=== PATIENT | male | born 1930 | race Caucasian/White ===

== ENCOUNTER 2017-09-14 18:35 | Emergency (ER) | payer MEDICARE, MEDICAID ==
--- NOTE | 2017-09-14 19:44 | C.PDOC ---
History Of Present Illness 87 year old male presents to the emergency department with complaints of fever, cough, congestion, and right ear discomfort. Patient was unable to provide a history, and the history was obtained from his daughter and granddaughter. His daughter reports that the patient has a tendency to vomit when he eats, which ghas been happening over the last few days Time Seen by Provider: 09/14/17 19:43 Chief Complaint (Nursing): Flu-like Symptoms History Per: Family (daughter, granddaughter) History/Exam Limitations: physical impairment Onset/Duration Of Symptoms: Days (1-2) Current Symptoms Are (Timing): Still Present Severity: Moderate Pain Scale Rating Of: 4 Reports Recently: Treated By A Physician Recent travel outside of the [place]: No Additional History Per: Family Past Medical History Reviewed: Historical Data, Nursing Documentation, Vital Signs Vital Signs: Last Vital Signs Temp 99.1 F 09/14/17 18:51 Pulse 73 09/14/17 22:06 Resp 14 09/14/17 22:06 BP 129/62 09/14/17 22:06 Pulse Ox 99 09/14/17 22:06 - Medical History PMH: CAD, CHF, Dementia, Depression, Diabetes (Type II), HTN, Hypercholesterolemia Denies: HIV, Chronic Kidney Disease Surgical History: Pacemaker - [facility] Procedures INJECT/INFUSE NEC (05/07/14) INTRODUCTION OF SERUM/TOX/VACCINE INTO MUSCLE, PERC APPROACH (04/13/15) Family History: States: No Known Family Hx - Social History Hx Alcohol Use: No Hx Substance Use: No - Immunization History Hx Tetanus Toxoid Vaccination: No Hx Influenza Vaccination: No Hx Pneumococcal Vaccination: No Review Of Systems Constitutional: Positive for: Fever ENT: Positive for: Ear Pain, Nose Congestion Cardiovascular: Negative for: Chest Pain Respiratory: Positive for: Cough. Negative for: Shortness of Breath Gastrointestinal: Positive for: Vomiting (upon eating). Negative for: Abdominal Pain Musculoskeletal: Negative for: Back Pain Skin: Positive for: Rash Neurological: Negative for: Weakness Psych: Negative for: Anxiety Physical Exam - Physical Exam Appears: Non-toxic, No Acute Distress, In Acute Distress (09/16) Skin: Warm, Dry, Other (facial erythema) Head: Normacephalic Eye(s): bilateral: Normal Inspection Ear(s): Left: Normal, Right: TM Obscured By Wax (middle ear canal), Other ( Right ear pinna erythematous) Oral Mucosa: Moist Throat: Normal, No Erythema, No Exudate Neck: Trachea Midline, Supple Chest: Symmetrical, Other (pacemaker in place on left chest) Cardiovascular: Rhythm Regular Respiratory: No Rales, Rhonchi (scattered), No Wheezing Gastrointestinal/Abdominal: Soft, Tenderness, No Distention, No Guarding, No Rebound Back: Normal Inspection Extremity: No Tenderness, Other (Chronic skin changes to bilateral lower extremities) Extremity: Bilateral: Atraumatic Pulses: Left Dorsalis Pedis: Normal, Right Dorsalis Pedis: Normal Neurological/Psych: Other (AAOx2) Gait: Unable To Assess ED Course And Treatment - Laboratory Results Result Diagrams: 09/14/17 20:33 09/14/17 20:33 ECG: Interpreted By Me, Viewed By Me ECG Rhythm: Sinus Rhythm (73), Nonspecific Changes (ventricular paced) O2 Sat by Pulse Oximetry: 96 (RA) Pulse Ox Interpretation: Normal - Radiology CXR: Interpreted by Me, Viewed By Me CXR Interpretation: Yes: Other (pacer on right). No: Infiltrates, Fracture, Pnemothorax Progress Note: Plan: Venous BG. EKG. CMP. Thromboplastin Time. Prothrombin Time. CXR One View. Blood Culture. Urinalysis Reevaluation Time: 23:18 Reassessment Condition: Improved Disposition Counseled Patient/Family Regarding: Studies Performed, Diagnosis, Need For Followup, Rx Given - Disposition Referrals: Sonido Velazquez I [Medical Doctor] - Disposition: HOME/ ROUTINE Disposition Time: 19:43 Condition: FAIR Additional Instructions: Please return if symptoms recur Prescriptions: levoFLOXacin [Levaquin] 500 mg PO DAILY #7 tab Instructions: Acute Bronchitis Forms: [facility] (Frisian) - Clinical Impression Clinical Impression: Bronchitis - Scribe Statement The provider has reviewed the documentation as recorded by the Scribe (Tony Bethea) Provider Attestation: All medical record entries made by the Scribe were at my direction and personally dictated by me. I have reviewed the chart and agree that the record accurately reflects my personal performance of the history, physical exam, medical decision making, and the department course for this patient. I have also personally directed, reviewed, and agree with the discharge instructions and disposition.
[2017-09-14 20:37] LABS: BASO % 0.3 % (0.0-2.0); EOS # 0.4 K/uL (0.0-0.7); EOS % 6.6 % (0.0-4.0); HEMOGLOBIN 10.4 g/dL (12.0-18.0); LYMPH # 0.5 K/uL (1.0-4.3); LYMPH % 8.9 % (20.0-40.0); MEAN CELL VOLUME 93.2 fL (80.0-94.0); MEAN CORPUSCULAR HEMOGLOBIN 32.5 pg (27.0-31.0); MEAN CORPUSCULAR HGB CONC 34.8 g/dL (33.0-37.0); MEAN PLATELET VOLUME 7.1 fL (7.2-11.7); MONO # 0.5 K/uL (0.0-0.8); MONO % 9.2 % (0.0-10.0); NEUT # 4.5 K/uL (1.8-7.0); PLATELET COUNT 184 K/uL (130-400); RED CELL DISTRIBUTION WIDTH 14.4 % (11.5-14.5)
[2017-09-14 20:45] LABS: INR 1.1; PROTHROMBIN TIME 12.4 SECONDS (9.7-12.2)
[2017-09-14 20:47] LABS: VENOUS BLOOD GAS PCO2 49 mmHg (40-60); VENOUS BLOOD GAS PO2 24 mm/Hg (30-55); VENOUS BLOOD PH 7.38 (7.32-7.43)
[2017-09-14 20:55] LABS: ALB/GLOB RATIO 0.9 (1.0-2.1); ALBUMIN 3.1 g/dL (3.5-5.0); ALT/SGPT 27 U/L (21-72); AST/SGOT 43 U/L (17-59); BLOOD UREA NITROGEN 17 mg/dL (9-20); CALCIUM 8.5 mg/dl (8.6-10.4); GFR AFRICAN-AMERICAN > 60; GFR NON-AFRICAN AMERICAN > 60; LIPASE 80 U/L (23-300)
[2017-09-14 21:13] LABS: EOSINOPHIL 8 % (0-4); LYMPHOCYTE 6 % (20-40); MONOCYTE 8 % (0-10); NEUTROPHIL 78 % (50-75); PLATELET ESTIMATE NORMAL (NORMAL); TOTAL CELLS COUNTED 100
[2017-09-14 22:55] LABS: SQUAMOUS EPITHIAL 1 /hpf (0-5); URINE BACTERIA RARE (<OCC); URINE BILIRUBIN NEGATIVE (NEGATIVE); URINE BLOOD NEGATIVE (NEGATIVE); URINE CLARITY Turbid (Clear); URINE COLOR Yellow (YELLOW); URINE GLUCOSE (UA) NORMAL (Normal); URINE LEUKOCYTE ESTERASE NEG Leu/uL (Negative); URINE PROTEIN 2+ mg/dL (NEGATIVE)
[2017-09-14 23:46] VITALS: RESP 20; TEMP 98
[2017-09-15 02:10] VITALS: BP 121/70; PULSE 88; O2SAT 100
--- NOTE | 2017-09-15 08:19 | RAD ---
Chest x-ray single frontal view History: Shortness of breath. Comparison: None available. Findings: Left-sided pacemaker. Mild venous congestion. Right hilar prominence. Biapical pleural thickening. Right paratracheal prominence may represent prominent vasculature. Top normal heart size. Degenerative changes in the spine and shoulders. Few distended loops of small bowel in the upper to mid abdomen. Impression: Left-sided pacemaker. Mild venous congestion. Right hilar prominence. Biapical pleural thickening. Right paratracheal prominence may represent prominent vasculature. Top normal heart size. Degenerative changes in the spine and shoulders. Few distended loops of small bowel in the upper to mid abdomen.
--- NOTE | 2017-09-16 19:24 | CARD ---
APPROVED REPORT EKG Measurement Heart [id number] <Conclusion> Ventricular-paced rhythm Abnormal ECG
== END 2017-09-15 02:10 | disposition home or self-care (01) ==
LOC: C.ER 18:35
DX: J40 Bronchitis, not specified as acute or chronic (principal); I10 Essential (primary) hypertension; E78.00 Pure hypercholesterolemia, unspecified; E11.9 Type 2 diabetes mellitus without complications; Z87.891 Personal history of nicotine dependence

== ENCOUNTER 2017-09-23 19:48 | Emergency (ER) | payer MEDICARE, MEDICAID ==
[2017-09-23] MEDS ORDERED: Sodium Chloride 0.9% 500 ML IV ONE (20:33)
[2017-09-23] MEDS ORDERED: Albuterol 0.083% Inhal Sol (2.5 mg/3 mL) UD INH STA (20:36)
--- NOTE | 2017-09-23 20:42 | C.PDOC ---
History Of Present Illness 87 y/o male with PMHx Dementia, HTN and DM brought to ED by family with complaints of non improved cough, decreased appetite and total body pain for "few days". Patient was seen at ED on 09/14 and diagnosed with bronchitis, discharged with antibiotics. As per family member patient has 1dose of antibiotic left but symptoms have not improved and is concern for decreased appetite which prompted visit to ED. As per family patient denies fever, chills , vomiting, diarrhea or any other complaints at this time. Chief Complaint (Nursing): Cough, Cold, Congestion History Per: Family History/Exam Limitations: clinical condition Onset/Duration Of Symptoms: Days Current Symptoms Are (Timing): Still Present Past Medical History Reviewed: Historical Data, Nursing Documentation, Vital Signs Vital Signs: Last Vital Signs Temp 98.0 F 09/23/17 23:05 Pulse 78 09/23/17 23:05 Resp 14 09/23/17 23:05 BP 130/54 L 09/23/17 23:05 Pulse Ox 96 09/23/17 23:05 - Medical History PMH: CAD, CHF, Dementia, Depression, Diabetes (Type II), HTN, Hypercholesterolemia Surgical History: Pacemaker - [facility] Procedures INJECT/INFUSE NEC (05/07/14) INTRODUCTION OF SERUM/TOX/VACCINE INTO MUSCLE, PERC APPROACH (04/13/15) Family History: States: No Known Family Hx - Social History Hx Alcohol Use: No Hx Substance Use: No - Immunization History Hx Tetanus Toxoid Vaccination: No Hx Influenza Vaccination: No Hx Pneumococcal Vaccination: No Review Of Systems Constitutional: Negative for: Fever, Chills Respiratory: Positive for: Cough Gastrointestinal: Negative for: Nausea, Vomiting, Diarrhea Musculoskeletal: Positive for: Other (Body pain) Skin: Negative for: Rash Physical Exam - Physical Exam Appears: Non-toxic, No Acute Distress Skin: Warm, Dry, Rash (Dermatitis over face), Other (Numerous abrasions to lower extremities, Thin pretibial skin) Head: Atraumatic, Normacephalic Eye(s): bilateral: Other (Conjunctiva injection) Oral Mucosa: Dry Neck: Normal ROM, Supple Cardiovascular: Rhythm Regular Respiratory: Decreased Breath Sounds (bilateral), Rhonchi (Right base) Extremity: No Pedal Edema, Capillary Refill (<2 seconds) Neurological/Psych: Oriented x3 ED Course And Treatment - Laboratory Results Result Diagrams: 09/23/17 21:17 09/23/17 21:17 O2 Sat by Pulse Oximetry: 95 (RA) Pulse Ox Interpretation: Normal - Radiology CXR: Interpreted by Me, Viewed By Me CXR Interpretation: Yes: No Acute Disease. No: Infiltrates Medical Decision Making Medical Decision Making: Impression: Bronchitis vs Pneumonia vs Sepsis Initial Plan: * Routine labs * EKG * Chest x-ray * Albuterol neb x1 * IV fluids * O2 2L via nasal cannula * Peak Flow pre/post nebulizer * Reassessment after meds given Labs reviewed, and are grossly normal. Disposition - Disposition Referrals: [facility] [Outside] Disposition: HOME/ ROUTINE Disposition Time: 01:30 Condition: GOOD Instructions: Upper Respiratory Infection (ED) Forms: Gen Discharge Inst British, [facility] (Cook Islander) Print Language: SAMI - Clinical Impression Clinical Impression: Influenza-like illness - Scribe Statement The provider has reviewed the documentation as recorded by the Scribe Jose Ambrose All medical record entries made by the Scribe were at my direction and personally dictated by me. I have reviewed the chart and agree that the record accurately reflects my personal performance of the history, physical exam, medical decision making, and the department course for this patient. I have also personally directed, reviewed, and agree with the discharge instructions and disposition.
[2017-09-23] MEDS ORDERED: Albuterol 0.083% Inhal Sol (2.5 mg/3 mL) UD ONE (21:00)
[2017-09-23 21:35] LABS: BASO % 0.4 % (0.0-2.0); EOS # 0.4 K/uL (0.0-0.7); EOS % 5.8 % (0.0-4.0); HEMOGLOBIN 11.2 g/dL (12.0-18.0); LYMPH # 0.5 K/uL (1.0-4.3); MEAN CELL VOLUME 92.6 fL (80.0-94.0); MEAN CORPUSCULAR HEMOGLOBIN 32.1 pg (27.0-31.0); MEAN CORPUSCULAR HGB CONC 34.7 g/dL (33.0-37.0); MONO # 0.6 K/uL (0.0-0.8); MONO % 8.2 % (0.0-10.0); NEUT # 5.5 K/uL (1.8-7.0); NEUT % 78.6 % (50.0-75.0); PLATELET COUNT 216 K/uL (130-400); RBC 3.49 Mil/uL (4.40-5.90); RED CELL DISTRIBUTION WIDTH 13.9 % (11.5-14.5); WHITE BLOOD COUNT 6.9 K/uL (4.8-10.8)
[2017-09-23 21:43] LABS: ALB/GLOB RATIO 0.9 (1.0-2.1); ALBUMIN 3.2 g/dL (3.5-5.0); ALT/SGPT 34 U/L (21-72); AST/SGOT 53 U/L (17-59); BLOOD UREA NITROGEN 19 mg/dL (9-20); CALCIUM 8.7 mg/dl (8.6-10.4); GFR AFRICAN-AMERICAN > 60; GFR NON-AFRICAN AMERICAN > 60
[2017-09-23 21:48] LABS: B-TYPE NATRIURETIC PEPTIDE 846 pg/mL (0-900)
[2017-09-23 21:55] LABS: SQUAMOUS EPITHIAL < 1 /hpf (0-5); URINE BACTERIA RARE (<OCC); URINE BILIRUBIN NEGATIVE (NEGATIVE); URINE BLOOD 1+ (NEGATIVE); URINE CLARITY Clear (Clear); URINE COLOR Yellow (YELLOW); URINE GLUCOSE (UA) NORMAL (Normal); URINE HYALINE CAST 0-2 /lpf (0-2); URINE LEUKOCYTE ESTERASE NEG Leu/uL (Negative); URINE PROTEIN 2+ mg/dL (NEGATIVE); URINE UROBILINOGEN NORMAL mg/dL (0.2-1.0)
[2017-09-23 22:24] LABS: EOSINOPHIL 5 % (0-4); LYMPHOCYTE 3 % (20-40); MONOCYTE 9 % (0-10); NEUTROPHIL 83 % (50-75); TOTAL CELLS COUNTED 100
[2017-09-23 22:25] LABS: PLATELET ESTIMATE NORMAL (NORMAL)
[2017-09-23 22:26] LABS: ANISOCYTOSIS SLIGHT; HELMET CELLS SLIGHT; OVALOCYTES SLIGHT; POIKILOCYTOSIS SLIGHT
[2017-09-23 22:27] LABS: ACANTHOCYTES SLIGHT
[2017-09-23 23:06] VITALS: BP 130/54; PULSE 78; RESP 14; TEMP 98
[2017-09-24 01:31] VITALS: O2SAT 95
--- NOTE | 2017-09-24 08:25 | RAD ---
PROCEDURE: CHEST RADIOGRAPH, 1 VIEW HISTORY: Pneumonia COMPARISON: Chest radiograph dated 09/14/2017. FINDINGS: LUNGS: Clear. PLEURA: No pneumothorax or pleural fluid seen. CARDIOVASCULAR: Left subclavian access pacemaker redemonstrated. Atherosclerotic aortic calcifications. Cardiomediastinal silhouette within normal limits. OSSEOUS STRUCTURES: Unchanged. VISUALIZED UPPER ABDOMEN: Normal. OTHER FINDINGS: None. IMPRESSION: No active disease.
--- NOTE | 2017-09-25 12:03 | CARD ---
APPROVED REPORT EKG Measurement Heart [id number] <Conclusion> Ventricular-paced rhythm with occasional supraventricular complexes Abnormal ECG
== END 2017-09-23 23:08 | disposition home or self-care (01) ==
LOC: C.ER 19:48
DX: J11.1 Influenza due to unidentified influenza virus with other respiratory manifestations (principal); I10 Essential (primary) hypertension; E11.9 Type 2 diabetes mellitus without complications; F03.90 Unspecified dementia, unspecified severity, without behavioral disturbance, psychotic disturbance, mood disturbance, and anxiety; Z87.891 Personal history of nicotine dependence

== ENCOUNTER 2017-10-10 11:12 | Inpatient (IN) | payer MEDICARE, MEDICAID ==
[2017-10-10 11:21] VITALS: BMI 25.0
[2017-10-10 11:59] LABS: ABG ALLEN TEST PO; ARTERIAL BLOOD GAS HCO3 25.5 mmol/L (21-28); ARTERIAL BLOOD GAS O2 SAT 100.3 % (95-98); ARTERIAL BLOOD GAS PCO2 47 mm/Hg (35-45); ARTERIAL BLOOD GAS PH 7.36 (7.35-7.45); ARTERIAL BLOOD GAS PO2 168 mm/Hg (80-100)
[2017-10-10 12:08] LABS: BASO # 0.2 K/uL (0.0-0.2); BASO % 0.9 % (0.0-2.0); EOS # 0.2 K/uL (0.0-0.7); EOS % 1.1 % (0.0-4.0); LYMPH # 0.3 K/uL (1.0-4.3); MEAN CORPUSCULAR HEMOGLOBIN 32.1 pg (27.0-31.0); MEAN CORPUSCULAR HGB CONC 34.6 g/dL (33.0-37.0); MEAN PLATELET VOLUME 7.7 fL (7.2-11.7); MONO # 0.7 K/uL (0.0-0.8); MONO % 4.1 % (0.0-10.0); NEUT # 15.1 K/uL (1.8-7.0); NEUT % 91.9 % (50.0-75.0); PLATELET COUNT 167 K/uL (130-400); RBC 2.33 Mil/uL (4.40-5.90); RED CELL DISTRIBUTION WIDTH 14.9 % (11.5-14.5)
--- NOTE | 2017-10-10 12:10 | C.PDOC ---
History Of Present Illness 87 year old male is brought to ED from senior care via ALS after pt was found unresponsive and in respiratory arrest at the [facility]. Pt was intubated on field, ET tube at 7.5, lipline 24. As per EMS, patient is s/p G-Tube placement 3 days ago. Unable to obtain further history due to clinical condition. Time Seen by Provider: 10/10/17 11:18 Chief Complaint (Nursing): Shortness Of Breath History Per: EMS History/Exam Limitations: clinical condition Onset/Duration Of Symptoms: Sudden Onset Current Symptoms Are (Timing): Still Present Additional History Per: [facility] Past Medical History Reviewed: Historical Data, Nursing Documentation, Vital Signs Vital Signs: Last Vital Signs Temp 98.9 F 10/10/17 11:15 Pulse 77 10/10/17 12:39 Resp 16 10/10/17 12:39 BP 113/48 L 10/10/17 12:39 Pulse Ox 100 10/10/17 12:39 - Medical History PMH: CAD, CHF, Dementia, Depression, Diabetes (Type II), HTN, Hypercholesterolemia Denies: HIV, Chronic Kidney Disease Surgical History: Pacemaker - [facility] Procedures INJECT/INFUSE NEC (05/07/14) INSERTION OF FEEDING DEVICE INTO STOMACH, PERC APPROACH (09/28/17) INTRODUCTION OF SERUM/TOX/VACCINE INTO MUSCLE, PERC APPROACH (04/13/15) Family History: States: Unknown Family Hx - Social History Hx Alcohol Use: No Hx Substance Use: No - Immunization History Hx Tetanus Toxoid Vaccination: No Hx Influenza Vaccination: No Hx Pneumococcal Vaccination: No Review Of Systems Review Of Systems: ROS cannot be obtained secondary to pt's inabilty to answer questions. Physical Exam - Physical Exam Appears: Non-toxic Skin: Warm, Dry, Other Head: Atraumatic, Normacephalic Eye(s): bilateral: Normal Inspection Oral Mucosa: Moist, Other (ET tube in place ) Cardiovascular: Rhythm Regular Respiratory: Other (bilateral breath sounds with BVM effort) Gastrointestinal/Abdominal: Soft, No Tenderness, Other (G-Tube in place) Extremity: Pedal Edema (edematous lower and upper extremities), Other (chronic venous stasis to lower extremities) Neurological/Psych: Other (unresponsive) ED Course And Treatment - Laboratory Results Result Diagrams: 10/10/17 12:02 10/10/17 12:02 ECG: Interpreted By Me, Viewed By Me Interpretation Of ECG: Ventricular paced rhythm at 99bpm. O2 Sat by Pulse Oximetry: 100 (RA) Pulse Ox Interpretation: Normal Critical Care Time - Critical Care Note Total Time (in mins): 75 Documented critical care: time excludes all time spent performing seperately billable procedures. Medical Decision Making Medical Decision Making: Plan: Blood work Urinalysis CXR EKG Head CT Ativan Assessment: Respiratory arrest Stat ICU consultation at 11:40. Case discussed with Dr. Cooper who agrees upon admission to ICU. Dr. Ruslan Martínez was notified at 12:10. Disposition Discussed With : Shelbie Martínez - Disposition Disposition: HOSPITALIZED Disposition Time: 12:10 Condition: GUARDED - Clinical Impression Clinical Impression: Respiratory arrest - Scribe Statement The provider has reviewed the documentation as recorded by the Scribe Ratna Martínez All medical record entries made by the Scribe were at my direction and personally dictated by me. I have reviewed the chart and agree that the record accurately reflects my personal performance of the history, physical exam, medical decision making, and the department course for this patient. I have also personally directed, reviewed, and agree with the discharge instructions and disposition.
[2017-10-10 12:11] LABS: HEMOGLOBIN 7.5 g/dL (12.0-18.0); WHITE BLOOD COUNT 16.5 K/uL (4.8-10.8)
[2017-10-10 12:36] LABS: ALB/GLOB RATIO 0.8 (1.0-2.1); ALBUMIN 2.3 g/dL (3.5-5.0); ALT/SGPT 32 U/L (21-72); AST/SGOT 50 U/L (17-59); BLOOD UREA NITROGEN 21 mg/dL (9-20); CALCIUM 7.7 mg/dl (8.6-10.4); GFR AFRICAN-AMERICAN > 60; GFR NON-AFRICAN AMERICAN 57
[2017-10-10 12:40] LABS: INR 1.1; PROTHROMBIN TIME 12.6 SECONDS (9.7-12.2)
[2017-10-10] MEDS ORDERED: Cefepime 1 GM in Sodium Chloride 0.9% 50 ML IVPB ONE (12:40)
[2017-10-10 12:47] LABS: EOSINOPHIL 2 % (0-4); LYMPHOCYTE 1 % (20-40); MONOCYTE 4 % (0-10); NEUTROPHIL 93 % (50-75); PLATELET ESTIMATE NORMAL (NORMAL); TOTAL CELLS COUNTED 100
[2017-10-10 12:48] LABS: ANISOCYTOSIS SLIGHT; BURR CELLS SLIGHT; HYPOCHROMIC MODERATE; OVALOCYTES SLIGHT; POIKILOCYTOSIS SLIGHT; TARGET CELLS SLIGHT
--- NOTE | 2017-10-10 13:02 | RAD ---
HISTORY: unresponsive Unresponsive the COMPARISON: No prior. FINDINGS: In situ ETT, tip which lies approximately 3.7 cm above rayna. LUNGS: Bilateral lower lobe hazy opacities likely representing some combination of bilateral effusions right larger than the left as well as bibasilar atelectasis. Lower lobe infiltrates not excluded. The central pulmonary vasculature is also slightly increased more so on the right PLEURA: As above. No pneumothorax. CARDIOVASCULAR: Heart size within range of normal. No change bipolar pacemaker. OSSEOUS STRUCTURES: No significant abnormalities. VISUALIZED UPPER ABDOMEN: Normal. OTHER FINDINGS: None. IMPRESSION: In situ ETT as described. Bilateral lower lobe hazy opacities likely representing some combination of bilateral effusions right larger than the left as well as bibasilar atelectasis. Lower lobe infiltrates not excluded. The central pulmonary vasculature is also slightly increased more so on the right
--- NOTE | 2017-10-10 14:09 | CP.PCM.CON ---
<Tyree Leonardo - Last Filed: 10/10/17 14:03> History of Present Illness - History of Present Illness History of Present Illness: Critical Care Consult note for Dr. Peterson This is an 87 year old male with PMHx CAD, pacemaker, DM2, CHF, HLD, dementia who presented from the alf in respiratory arrest. Per review of EMR, patient recently hospitalized in [place] for sepsis from pneumonia and had PEG tube placed before being discharged to [facility]. This morning was found unresponsive and in respiratory arrest. Patient was intubated prior to arrival in the hospital. Per family at bedside, the alf told them that he was not responding this morning, and that the patient was being taken to the hospital. At baseline, the patient is able to communicate whenever he needs anything such as water. He was speaking with family up until yesterday. The family states that ever since 5 years ago, the patient experienced a fall and has not been able to move around since then. At baseline, he moves his upper extremities and torso to a small extent; however, he does not move his legs. PMHx: CAD, DM2, CHF, HLD, dementia PSHx: Pacemaker Allergies: NKA Social: from alf, former smoker per family. Review of Systems - Review of Systems Systems not reviewed;Unavailable: Acuity of Condition, Altered Mental Status, Intubated Past Patient History - Infectious Disease Hx of Infectious Diseases: None - Past Medical History & Family History Past Medical History?: Yes - Past Social History Smoking Status: Former Smoker - CARDIAC Hx Congestive Heart Failure: Yes Hx Hypercholesterolemia: Yes Hx Hypertension: Yes Hx Pacemaker: Yes - PULMONARY Hx Respiratory Disorders: No - NEUROLOGICAL Hx Dementia: Yes - HEENT Hx HEENT Problems: Yes - RENAL Hx Chronic Kidney Disease: No - ENDOCRINE/METABOLIC Hx Endocrine Disorders: Yes Hx Diabetes Mellitus Type 2: Yes - HEMATOLOGICAL/ONCOLOGICAL Hx Human Immunodeficiency Virus (HIV): No - INTEGUMENTARY Hx Dermatological Problems: No - MUSCULOSKELETAL/RHEUMATOLOGICAL Hx Musculoskeletal Disorders: Yes Hx Falls: Yes Other/Comment: non amb-W/C bound at home x 2yrs - GASTROINTESTINAL Hx Gastrointestinal Disorders: Yes Hx Constipation: Yes Other/Comment: PEG tube in place - GENITOURINARY/GYNECOLOGICAL Hx Genitourinary Disorders: No - PSYCHIATRIC Hx Depression: Yes Hx Substance Use: No - SURGICAL HISTORY Hx Surgeries: Yes Other/Comment: Pacemaker insertion - ANESTHESIA Hx Anesthesia: Yes Hx Anesthesia Reactions: No Hx Malignant Hyperthermia: No Meds Allergies/Adverse Reactions: Allergies Allergy/AdvReac Type Severity Reaction Status Date / Time No Known Allergies Allergy Verified 10/10/17 11:15 - Medications Medications: Current Medications Cefepime HCl (Maxipime Iv 1 Gm Premix) 1 gm in 50 mls @ 100 mls/hr IVPB Q12H JEFFERY PRN Reason: Protocol Insulin Aspart (Novolog) 0 unit SC Q6 JEFFERY PRN Reason: Protocol Pantoprazole Sodium (Protonix Inj) 40 mg IVP DAILY JEFFERY Physical Exam - Constitutional Appears: No Acute Distress, Chronically Ill - Head Exam Head Exam: ATRAUMATIC, NORMOCEPHALIC - Eye Exam Eye Exam: absent: Normal appearance (cataracts) Additional comments: pupils sluggishly reactive to light - ENT Exam ENT Exam: Mucous Membranes Dry - Respiratory Exam Respiratory Exam: Wheezes (right sided). absent: Rales, Rhonchi - Cardiovascular Exam Cardiovascular Exam: REGULAR RHYTHM, +S1, +S2 - GI/Abdominal Exam GI & Abdominal Exam: Normal Bowel Sounds, Soft. absent: Tenderness Additional comments: PEG tube with no obvious signs of infection - Extremities Exam Additional comments: Edema in the arms bilaterally Edema in the thighs bilaterally Unable to manually palpate pedal pulses chronic vascular insufficiency of the legs - Back Exam Additional comments: Sacral wound - Neurological Exam Neurological exam: Altered - Skin Skin Exam: Dry, Warm Results - Vital Signs Recent Vital Signs: Last Vital Signs Temp 98.9 F 10/10/17 11:15 Pulse 78 10/10/17 13:30 Resp 16 10/10/17 13:30 BP 110/46 L 10/10/17 13:30 Pulse Ox 100 10/10/17 13:30 - Labs Result Diagrams: 10/10/17 12:02 10/10/17 12:02 Labs: Laboratory Results - last 24 hr 10/10/17 10/10/17 10/10/17 11:35 11:55 12:02 WBC RBC Hgb Hct MCV MCH MCHC RDW Plt Count MPV Neut % (Auto) Lymph % (Auto) [place] % (Auto) Eos % (Auto) Baso % (Auto) Neut # (Auto) Lymph # (Auto) [place] # (Auto) Eos # (Auto) Baso # (Auto) Neutrophils % (Manual) Lymphocytes % (Manual) Monocytes % (Manual) Eosinophils % (Manual) Platelet Estimate Hypochromasia (manual) Poikilocytosis (manual Anisocytosis (manual) Target Cells Ovalocytes [place] Cells PT INR APTT Puncture Site Rra pCO2 47 H pO2 168 H HCO3 25.5 ABG pH 7.36 ABG Total CO2 28.0 ABG O2 Saturation 100.3 H ABG Base Excess 0.6 Lyle Test Po ABG Potassium 4.2 A-a O2 Difference 486.0 Respiratory Index 2.9 Sodium 140.0 144 Chloride 111.0 H 107 Glucose 197 H Lactate 0.9 Vent Mode Prvc FiO2 100.0 Tidal Volume 500 PEEP 5 Potassium 4.6 Carbon Dioxide 25 Anion Gap 16 BUN 21 H Creatinine 1.2 Est GFR ( Amer) > 60 Est GFR (Non-Af Amer) 57 POC Glucose (mg/dL) 221 H Random Glucose 187 H Lactic Acid Calcium 7.7 L Magnesium 1.9 Total Bilirubin 0.4 AST 50 ALT 32 Alkaline Phosphatase 96 Troponin I 0.0790 Total Protein 5.1 L Albumin 2.3 L D Globulin 2.8 Albumin/Globulin Ratio 0.8 L TSH 3rd Generation 4.05 Arterial Blood Potassium 4.2 10/10/17 10/10/17 10/10/17 12:02 12:02 12:02 WBC 16.5 H D RBC 2.33 L Hgb 7.5 L D Hct 21.7 L MCV 93.0 MCH 32.1 H MCHC 34.6 RDW 14.9 H Plt Count 167 MPV 7.7 Neut % (Auto) 91.9 H Lymph % (Auto) 2.0 L [place] % (Auto) 4.1 Eos % (Auto) 1.1 Baso % (Auto) 0.9 Neut # (Auto) 15.1 H Lymph # (Auto) 0.3 L [place] # (Auto) 0.7 Eos # (Auto) 0.2 Baso # (Auto) 0.2 Neutrophils % (Manual) 93 H Lymphocytes % (Manual) 1 L Monocytes % (Manual) 4 Eosinophils % (Manual) 2 Platelet Estimate Normal Hypochromasia (manual) Moderate Poikilocytosis (manual Slight Anisocytosis (manual) Slight Target Cells Slight Ovalocytes Slight [place] Cells Slight PT 12.6 H INR 1.1 APTT 18 L Puncture Site pCO2 pO2 HCO3 ABG pH ABG Total CO2 ABG O2 Saturation ABG Base Excess Lyle Test ABG Potassium A-a O2 Difference Respiratory Index Sodium Chloride Glucose Lactate Vent Mode FiO2 Tidal Volume PEEP Potassium Carbon Dioxide Anion Gap BUN Creatinine Est GFR ( Amer) Est GFR (Non-Af Amer) POC Glucose (mg/dL) Random Glucose Lactic Acid 1.1 Calcium Magnesium Total Bilirubin AST ALT Alkaline Phosphatase Troponin I Total Protein Albumin Globulin Albumin/Globulin Ratio TSH 3rd Generation Arterial Blood Potassium Assessment & Plan - Assessment and Plan (Free Text) Assessment: This is an 87 year old male with PMHx CAD, DM2, CHF, HLD, dementia who presented from the alf in respiratory arrest. Patient recently hospitalized with sepsis pneumonia at [place]. Patient now in respiratory arrest requiring intubation in the field. Neuro Assessment: End stage dementia Intubated but not sedated on medications Currently unresponsive to stimulus Cardio Assessment: CAD, s/p pacemaker Monitor for now Pulm Assessment: Respiratory Failure Vented GI Tube feeds Protonix 40 mg IV daily Endocrine Assessment: DM2 Aspart ISS Q6H Accuchecks Q6H Renal No active issues ID Assessment: Recent hospitalization with sepsis PNA Cefepime 1 gm Q12 Vancomycin 1 gm Q12 f/u cultures Prophylaxis Lovenox 40 mg SC daily Protonix 40 mg IV daily Discussed with Dr. Peterson <Jesus Peterson - Last Filed: 10/10/17 15:58> Meds - Medications Medications: Current Medications Cefepime HCl (Maxipime Iv 1 Gm Premix) 1 gm in 50 mls @ 100 mls/hr IVPB Q12H JEFFERY PRN Reason: Protocol Azithromycin 500 mg/ Sodium (Chloride) 250 mls @ 250 mls/hr IVPB DAILY@1600 JEFFERY PRN Reason: Protocol Vancomycin/Sodium Chloride (Vancomycin 1 Gm/Ns 200 Ml) 1 gm in 200 mls @ 133 mls/hr IVPB Q12H JEFFERY PRN Reason: Protocol Stop: 10/15/17 18:01 Insulin Aspart (Novolog) 0 unit SC Q6 JEFFERY PRN Reason: Protocol Pantoprazole Sodium (Protonix Inj) 40 mg IVP DAILY [facility] Pneumococcal Polyvalent Vaccine (Pneumovax 23 Vaccine) 0.5 ml IM .ONCE ONE Stop: 10/13/17 10:01 Results - Vital Signs Recent Vital Signs: Last Vital Signs Temp 98.9 F 10/10/17 11:15 Pulse 76 10/10/17 15:31 Resp 16 10/10/17 15:31 BP 110/46 L 10/10/17 13:30 Pulse Ox 100 10/10/17 15:31 - Labs Result Diagrams: 10/10/17 12:02 10/10/17 12:02 Labs: Laboratory Results - last 24 hr 10/10/17 10/10/17 10/10/17 11:35 11:55 12:02 WBC RBC Hgb Hct MCV MCH MCHC RDW Plt Count MPV Neut % (Auto) Lymph % (Auto) [place] % (Auto) Eos % (Auto) Baso % (Auto) Neut # (Auto) Lymph # (Auto) [place] # (Auto) Eos # (Auto) Baso # (Auto) Neutrophils % (Manual) Lymphocytes % (Manual) Monocytes % (Manual) Eosinophils % (Manual) Platelet Estimate Hypochromasia (manual) Poikilocytosis (manual Anisocytosis (manual) Target Cells Ovalocytes Evelyn Cells PT INR APTT Puncture Site Rra pCO2 47 H pO2 168 H HCO3 25.5 ABG pH 7.36 ABG Total CO2 28.0 ABG O2 Saturation 100.3 H ABG Base Excess 0.6 Lyle Test Po ABG Potassium 4.2 A-a O2 Difference 486.0 Respiratory Index 2.9 Sodium 140.0 144 Chloride 111.0 H 107 Glucose 197 H Lactate 0.9 Vent Mode Prvc FiO2 100.0 Tidal Volume 500 PEEP 5 Potassium 4.6 Carbon Dioxide 25 Anion Gap 16 BUN 21 H Creatinine 1.2 Est GFR ( Amer) > 60 Est GFR (Non-Af Amer) 57 POC Glucose (mg/dL) 221 H Random Glucose 187 H Lactic Acid Calcium 7.7 L Magnesium 1.9 Total Bilirubin 0.4 AST 50 ALT 32 Alkaline Phosphatase 96 Troponin I 0.0790 Total Protein 5.1 L Albumin 2.3 L D Globulin 2.8 Albumin/Globulin Ratio 0.8 L TSH 3rd Generation 4.05 Arterial Blood Potassium 4.2 10/10/17 10/10/17 10/10/17 12:02 12:02 12:02 WBC 16.5 H D RBC 2.33 L Hgb 7.5 L D Hct 21.7 L MCV 93.0 MCH 32.1 H MCHC 34.6 RDW 14.9 H Plt Count 167 MPV 7.7 Neut % (Auto) 91.9 H Lymph % (Auto) 2.0 L [place] % (Auto) 4.1 Eos % (Auto) 1.1 Baso % (Auto) 0.9 Neut # (Auto) 15.1 H Lymph # (Auto) 0.3 L [place] # (Auto) 0.7 Eos # (Auto) 0.2 Baso # (Auto) 0.2 Neutrophils % (Manual) 93 H Lymphocytes % (Manual) 1 L Monocytes % (Manual) 4 Eosinophils % (Manual) 2 Platelet Estimate Normal Hypochromasia (manual) Moderate Poikilocytosis (manual Slight Anisocytosis (manual) Slight Target Cells Slight Ovalocytes Slight Evelyn Cells Slight PT 12.6 H INR 1.1 APTT 18 L Puncture Site pCO2 pO2 HCO3 ABG pH ABG Total CO2 ABG O2 Saturation ABG Base Excess Lyle Test ABG Potassium A-a O2 Difference Respiratory Index Sodium Chloride Glucose Lactate Vent Mode FiO2 Tidal Volume PEEP Potassium Carbon Dioxide Anion Gap BUN Creatinine Est GFR ( Amer) Est GFR (Non-Af Amer) POC Glucose (mg/dL) Random Glucose Lactic Acid 1.1 Calcium Magnesium Total Bilirubin AST ALT Alkaline Phosphatase Troponin I Total Protein Albumin Globulin Albumin/Globulin Ratio TSH 3rd Generation Arterial Blood Potassium Attending/Attestation - Attestation I have personally seen and examined this patient.: Yes I have fully participated in the care of the patient.: Yes I have reviewed all pertinent clinical information: Yes Notes (Text): 10/10/17 15:50 I have seen and examined the patient. Medical records, lab studies, and imaging were reviewed by me and a management plan was formulated on multidisciplinary rounds with resident Dr. Leonardo. I agree with their documented assessment and plan. Patient was found unresponsive at alf. Possible ischemic stroke, questionable hemorrhagic also seen on CT head. patient is comatose and on mechanical ventilation, with history of prior stroke 6 years ago, underlying dementia and bed bound; he has a high mortality risk with a grave prognosis. Evidence of hydrocephalus on CT head, poor candidate for ROUSTAB[employer] P[employer]HER shunt if needed. Will monitor for improvement. Critical Care Time 35 minutes. Multi-disciplinary rounds were performed with house staff, nursing, speech therapy, respiratory therapy, pharmacy and nutrition with integrated input from the primary team/attending and other consulting services. The documented time is cumulative and includes review of patient data/exams/labs/chart review and examination of the patient on rounds and throughout the day; time is exclusive of any procedures or teaching time.
[2017-10-10] MEDS ORDERED: Vancomycin 1 gm/NS 200 ml 1 GM/200 ML BAG IVPB SCH (14:30)
--- NOTE | 2017-10-10 14:32 | CT ---
PROCEDURE: CT HEAD WITHOUT CONTRAST. HISTORY: dizziness COMPARISON: None available. TECHNIQUE: Axial computed tomography images were obtained through the head/brain without intravenous contrast. Radiation dose: Total exam DLP = 1070.45 mGy-cm. This CT exam was performed using one or more of the following dose reduction techniques: Automated exposure control, adjustment of the mA and/or kV according to patient size, and/or use of iterative reconstruction technique. FINDINGS: HEMORRHAGE: Questionable very small intraventricular hemorrhage in the occipital horn of the right lateral ventricle (series 4, image 23 and 24). Consider repeat CT examination within 24 hours. No parenchymal or extra-axial hemorrhage appreciated. BRAIN: No mass effect or edema. Moderate generalized atrophy. Mild periventricular white matter lucency, consistent with microvascular white matter ischemic change. No evidence of acute infarct. . VENTRICLES: [id number] dilatation of the 3rd and lateral ventricles. This is somewhat disproportionate to the degree of surrounding parenchymal atrophy. This could represent noncommunicating hydrocephalus. Correlate clinically for possible NPH. CALVARIUM: Unremarkable. PARANASAL SINUSES: Unremarkable as visualized. No significant inflammatory changes. MASTOID AIR CELLS: Unremarkable as visualized. No inflammatory changes. OTHER FINDINGS: None. IMPRESSION: Possible very small intraventricular hemorrhage in the occipital horn of right lateral ventricle. Follow-up CT examination device within 24 hours. Ventricular dilatation disproportionate to the degree of surrounding parenchymal atrophy. Consider noncommunicating hydrocephalus or NPH. The possibility of intraventricular hemorrhage was discussed by telephone with the patient's nurse, Estefania, at 2:30 p.m. on 10/10/2017.
[2017-10-10] MEDS: Azithromycin 500 MG in Sodium Chloride 0.9% 250 ML IVPB SCH (15:53)
[2017-10-10] MEDS: Vancomycin 1 gm/NS 200 ml 1 GM/200 ML BAG IVPB SCH (16:59)
[2017-10-10 18:00] LABS: SQUAMOUS EPITHIAL < 1 /hpf (0-5); URINE BACTERIA FEW (<OCC); URINE BILIRUBIN NEGATIVE (NEGATIVE); URINE BLOOD 3+ (NEGATIVE); URINE CLARITY Hazy (Clear); URINE COLOR YELLOW (YELLOW); URINE GLUCOSE (UA) NORMAL (Normal); URINE LEUKOCYTE ESTERASE TRACE Leu/uL (Negative); URINE PROTEIN 2+ mg/dL (NEGATIVE); URINE UROBILINOGEN NORMAL mg/dL (0.2-1.0)
[2017-10-10] MEDS: (Novolog) Insulin Aspart, Recombinant 100 u/ml 10 ml vial SC SCH (18:09)
--- NOTE | 2017-10-10 18:21 | CP.PCM.CON ---
History of Present Illness - History of Present Illness History of Present Illness: 87 year old male presented from the long-term in respiratory arrest.Patient recently hospitalized in [place] for sepsis from pneumonia and had PEG tube placed before being discharged to [facility]. This morning was found unresponsive and in respiratory arrest. Patient was intubated prior to arrival in the hospital. Has hx of multiple decubiti from home where he was weak, bedbound , confused and cachectic prior to admission in [place] where he was treated for pneumonia PMHx: CAD, DM2, CHF, HLD, dementia PSHx: Pacemaker Allergies: NKA Social: from long-term, former smoker per family. Review of Systems - Review of Systems Systems not reviewed;Unavailable: Acuity of Condition, Altered Mental Status, Intubated Review of Systems - Review of Systems All systems: reviewed and no additional remarkable complaints except Past Patient History - Infectious Disease Hx of Infectious Diseases: None - Past Medical History & Family History Past Medical History?: Yes - Past Social History Smoking Status: Former Smoker - CARDIAC Hx Congestive Heart Failure: Yes Hx Hypercholesterolemia: Yes Hx Hypertension: Yes Hx Pacemaker: Yes - PULMONARY Hx Respiratory Disorders: No - NEUROLOGICAL Hx Dementia: Yes - HEENT Hx HEENT Problems: Yes - RENAL Hx Chronic Kidney Disease: No - ENDOCRINE/METABOLIC Hx Endocrine Disorders: Yes Hx Diabetes Mellitus Type 2: Yes - HEMATOLOGICAL/ONCOLOGICAL Hx Human Immunodeficiency Virus (HIV): No - INTEGUMENTARY Hx Dermatological Problems: No - MUSCULOSKELETAL/RHEUMATOLOGICAL Hx Falls: Yes - GASTROINTESTINAL Hx Gastrointestinal Disorders: Yes Hx Constipation: Yes Other/Comment: PEG tube in place - GENITOURINARY/GYNECOLOGICAL Hx Genitourinary Disorders: No - PSYCHIATRIC Hx Substance Use: No - SURGICAL HISTORY Hx Surgeries: Yes Other/Comment: Pacemaker insertion - ANESTHESIA Hx Anesthesia: Yes Hx Anesthesia Reactions: No Hx Malignant Hyperthermia: No Meds Allergies/Adverse Reactions: Allergies Allergy/AdvReac Type Severity Reaction Status Date / Time No Known Allergies Allergy Verified 10/10/17 11:15 - Medications Medications: Current Medications Cefepime HCl (Maxipime Iv 1 Gm Premix) 1 gm in 50 mls @ 100 mls/hr IVPB Q12H JEFFERY PRN Reason: Protocol Azithromycin 500 mg/ Sodium (Chloride) 250 mls @ 250 mls/hr IVPB DAILY@1600 JEFFERY PRN Reason: Protocol Last Admin: 10/10/17 15:53 Dose: 250 mls/hr Vancomycin/Sodium Chloride (Vancomycin 1 Gm/Ns 200 Ml) 1 gm in 200 mls @ 133 mls/hr IVPB Q12H JEFFERY PRN Reason: Protocol Stop: 10/15/17 18:01 Last Admin: 10/10/17 16:59 Dose: 133 mls/hr Insulin Aspart (Novolog) 0 unit SC Q6 JEFFERY PRN Reason: Protocol Last Admin: 10/10/17 18:09 Dose: 3 unit Pantoprazole Sodium (Protonix Inj) 40 mg IVP DAILY [facility] Pneumococcal Polyvalent Vaccine (Pneumovax 23 Vaccine) 0.5 ml IM .ONCE ONE Stop: 10/13/17 10:01 Physical Exam - Constitutional Appears: Confused, Cachectic, Chronically Ill - Head Exam Head Exam: ATRAUMATIC, NORMAL INSPECTION, NORMOCEPHALIC - Eye Exam Eye Exam: PERRL. absent: Scleral icterus - ENT Exam ENT Exam: Mucous Membranes Dry. absent: Normal Oropharynx Additional comments: ETT + - Neck Exam Neck exam: Negative for: Lymphadenopathy, Thyromegaly - Respiratory Exam Respiratory Exam: Decreased Breath Sounds, Rales, Rhonchi - Cardiovascular Exam Cardiovascular Exam: REGULAR RHYTHM, +S1, +S2 - GI/Abdominal Exam GI & Abdominal Exam: Diminished Bowel Sounds, Soft. absent: Tenderness - Rectal Exam Rectal Exam: Deferred - Exam Exam: NORMAL INSPECTION - Extremities Exam Extremities exam: Positive for: pedal pulses present. Negative for: calf tenderness, pedal edema, tenderness - Back Exam Back exam: absent: CVA tenderness (L), CVA tenderness (R), paraspinal tenderness - Neurological Exam Neurological exam: Altered - Psychiatric Exam Psychiatric exam: Depressed - Skin Skin Exam: Dry Additional comments: multiple wounds + Results - Vital Signs Recent Vital Signs: Last Vital Signs Temp 98.6 F 10/10/17 16:00 Pulse 71 10/10/17 18:04 Resp 16 10/10/17 18:04 BP 102/48 L 10/10/17 18:05 Pulse Ox 100 10/10/17 18:04 - Labs Result Diagrams: 10/10/17 12:02 10/10/17 12:02 Labs: Laboratory Results - last 24 hr 10/10/17 10/10/17 10/10/17 11:35 11:55 12:02 WBC RBC Hgb Hct MCV MCH MCHC RDW Plt Count MPV Neut % (Auto) Lymph % (Auto) [place] % (Auto) Eos % (Auto) Baso % (Auto) Neut # (Auto) Lymph # (Auto) [place] # (Auto) Eos # (Auto) Baso # (Auto) Neutrophils % (Manual) Lymphocytes % (Manual) Monocytes % (Manual) Eosinophils % (Manual) Platelet Estimate Hypochromasia (manual) Poikilocytosis (manual Anisocytosis (manual) Target Cells Ovalocytes Evelyn Cells PT INR APTT Puncture Site Rra pCO2 47 H pO2 168 H HCO3 25.5 ABG pH 7.36 ABG Total CO2 28.0 ABG O2 Saturation 100.3 H ABG Base Excess 0.6 Lyle Test Po ABG Potassium 4.2 A-a O2 Difference 486.0 Respiratory Index 2.9 Sodium 140.0 144 Chloride 111.0 H 107 Glucose 197 H Lactate 0.9 Vent Mode Prvc FiO2 100.0 Tidal Volume 500 PEEP 5 Potassium 4.6 Carbon Dioxide 25 Anion Gap 16 BUN 21 H Creatinine 1.2 Est GFR ( Amer) > 60 Est GFR (Non-Af Amer) 57 POC Glucose (mg/dL) 221 H Random Glucose 187 H Lactic Acid Calcium 7.7 L Magnesium 1.9 Total Bilirubin 0.4 AST 50 ALT 32 Alkaline Phosphatase 96 Troponin I 0.0790 Total Protein 5.1 L Albumin 2.3 L D Globulin 2.8 Albumin/Globulin Ratio 0.8 L Procalcitonin TSH 3rd Generation 4.05 Arterial Blood Potassium 4.2 Urine Color Urine Clarity Urine pH Ur Specific [place] Urine Protein Urine Glucose (UA) Urine Ketones Urine Blood Urine Nitrate Urine Bilirubin Urine Urobilinogen Ur Leukocyte Esterase Urine WBC (Auto) Urine RBC (Auto) Ur Squamous Epith Cells Urine Bacteria 10/10/17 10/10/17 10/10/17 12:02 12:02 12:02 WBC 16.5 H D RBC 2.33 L Hgb 7.5 L D Hct 21.7 L MCV 93.0 MCH 32.1 H MCHC 34.6 RDW 14.9 H Plt Count 167 MPV 7.7 Neut % (Auto) 91.9 H Lymph % (Auto) 2.0 L [place] % (Auto) 4.1 Eos % (Auto) 1.1 Baso % (Auto) 0.9 Neut # (Auto) 15.1 H Lymph # (Auto) 0.3 L [place] # (Auto) 0.7 Eos # (Auto) 0.2 Baso # (Auto) 0.2 Neutrophils % (Manual) 93 H Lymphocytes % (Manual) 1 L Monocytes % (Manual) 4 Eosinophils % (Manual) 2 Platelet Estimate Normal Hypochromasia (manual) Moderate Poikilocytosis (manual Slight Anisocytosis (manual) Slight Target Cells Slight Ovalocytes Slight [place] Cells Slight PT 12.6 H INR 1.1 APTT 18 L Puncture Site pCO2 pO2 HCO3 ABG pH ABG Total CO2 ABG O2 Saturation ABG Base Excess Lyle Test ABG Potassium A-a O2 Difference Respiratory Index Sodium Chloride Glucose Lactate Vent Mode FiO2 Tidal Volume PEEP Potassium Carbon Dioxide Anion Gap BUN Creatinine Est GFR ( Amer) Est GFR (Non-Af Amer) POC Glucose (mg/dL) Random Glucose Lactic Acid 1.1 Calcium Magnesium Total Bilirubin AST ALT Alkaline Phosphatase Troponin I Total Protein Albumin Globulin Albumin/Globulin Ratio Procalcitonin TSH 3rd Generation Arterial Blood Potassium Urine Color Urine Clarity Urine pH Ur Specific [place] Urine Protein Urine Glucose (UA) Urine Ketones Urine Blood Urine Nitrate Urine Bilirubin Urine Urobilinogen Ur Leukocyte Esterase Urine WBC (Auto) Urine RBC (Auto) Ur Squamous Epith Cells Urine Bacteria 10/10/17 10/10/17 10/10/17 14:57 17:50 18:01 WBC RBC Hgb Hct MCV MCH MCHC RDW Plt Count MPV Neut % (Auto) Lymph % (Auto) [place] % (Auto) Eos % (Auto) Baso % (Auto) Neut # (Auto) Lymph # (Auto) [place] # (Auto) Eos # (Auto) Baso # (Auto) Neutrophils % (Manual) Lymphocytes % (Manual) Monocytes % (Manual) Eosinophils % (Manual) Platelet Estimate Hypochromasia (manual) Poikilocytosis (manual Anisocytosis (manual) Target Cells Ovalocytes Evelyn Cells PT INR APTT Puncture Site pCO2 pO2 HCO3 ABG pH ABG Total CO2 ABG O2 Saturation ABG Base Excess Lyle Test ABG Potassium A-a O2 Difference Respiratory Index Sodium Chloride Glucose Lactate Vent Mode FiO2 Tidal Volume PEEP Potassium Carbon Dioxide Anion Gap BUN Creatinine Est GFR ( Amer) Est GFR (Non-Af Amer) POC Glucose (mg/dL) 229 H Random Glucose Lactic Acid Calcium Magnesium Total Bilirubin AST ALT Alkaline Phosphatase Troponin I Total Protein Albumin Globulin Albumin/Globulin Ratio Procalcitonin 1.10 H TSH 3rd Generation Arterial Blood Potassium Urine Color Yellow Urine Clarity Hazy Urine pH 5.0 Ur Specific [place] 1.019 Urine Protein 2+ H Urine Glucose (UA) Normal Urine Ketones Negative Urine Blood 3+ H Urine Nitrate Negative Urine Bilirubin Negative Urine Urobilinogen Normal Ur Leukocyte Esterase Trace H Urine WBC (Auto) 3 Urine RBC (Auto) 45 H Ur Squamous Epith Cells < 1 Urine Bacteria Few H Assessment & Plan (1) Respiratory arrest Status: Acute (2) Aspiration pneumonia Status: Acute (3) Bronchitis Status: Acute (4) CAD (coronary artery disease) Status: Acute (5) Diabetes Status: Acute - Assessment and Plan (Free Text) Assessment: await [place] cultures cont iv antibiotics and wound care wean as tolerated poor prognosis from the outset
--- NOTE | 2017-10-10 19:38 | CP.PCM.HP ---
Past Patient History - Infectious Disease Hx of Infectious Diseases: None - Past Medical History & Family History Past Medical History?: Yes - Past Social History Smoking Status: Former Smoker - CARDIAC Hx Congestive Heart Failure: Yes Hx Hypercholesterolemia: Yes Hx Hypertension: Yes Hx Pacemaker: Yes - PULMONARY Hx Respiratory Disorders: No - NEUROLOGICAL Hx Dementia: Yes - HEENT Hx HEENT Problems: Yes - RENAL Hx Chronic Kidney Disease: No - ENDOCRINE/METABOLIC Hx Endocrine Disorders: Yes Hx Diabetes Mellitus Type 2: Yes - HEMATOLOGICAL/ONCOLOGICAL Hx Human Immunodeficiency Virus (HIV): No - INTEGUMENTARY Hx Dermatological Problems: No - MUSCULOSKELETAL/RHEUMATOLOGICAL Hx Falls: Yes - GASTROINTESTINAL Hx Gastrointestinal Disorders: Yes Hx Constipation: Yes Other/Comment: PEG tube in place - GENITOURINARY/GYNECOLOGICAL Hx Genitourinary Disorders: No - PSYCHIATRIC Hx Substance Use: No - SURGICAL HISTORY Hx Surgeries: Yes Other/Comment: Pacemaker insertion - ANESTHESIA Hx Anesthesia: Yes Hx Anesthesia Reactions: No Hx Malignant Hyperthermia: No Meds Allergies/Adverse Reactions: Allergies Allergy/AdvReac Type Severity Reaction Status Date / Time No Known Allergies Allergy Verified 10/10/17 11:15 Physical Exam - Constitutional Appears: Well - Head Exam Head Exam: ATRAUMATIC, NORMAL INSPECTION, NORMOCEPHALIC - Eye Exam Eye Exam: EOMI, Normal appearance, PERRL Pupil Exam: NORMAL ACCOMODATION, PERRL - ENT Exam ENT Exam: Mucous Membranes Moist, Normal Exam - Neck Exam Neck exam: Positive for: Normal Inspection - Respiratory Exam Respiratory Exam: Decreased Breath Sounds - Cardiovascular Exam Cardiovascular Exam: REGULAR RHYTHM, +S1, +S2 - GI/Abdominal Exam GI & Abdominal Exam: Diminished Bowel Sounds, Soft - Rectal Exam Rectal Exam: Deferred Results - Vital Signs Recent Vital Signs: Last Vital Signs Temp 98.6 F 10/10/17 16:00 Pulse 73 10/10/17 19:04 Resp 16 10/10/17 19:04 BP 111/49 L 10/10/17 19:04 Pulse Ox 100 10/10/17 19:04 - Labs Result Diagrams: 10/10/17 12:02 10/10/17 12:02 Labs: Laboratory Results - last 24 hr 10/10/17 10/10/17 10/10/17 11:35 11:55 12:02 WBC RBC Hgb Hct MCV MCH MCHC RDW Plt Count MPV Neut % (Auto) Lymph % (Auto) [place] % (Auto) Eos % (Auto) Baso % (Auto) Neut # (Auto) Lymph # (Auto) [place] # (Auto) Eos # (Auto) Baso # (Auto) Neutrophils % (Manual) Lymphocytes % (Manual) Monocytes % (Manual) Eosinophils % (Manual) Platelet Estimate Hypochromasia (manual) Poikilocytosis (manual Anisocytosis (manual) Target Cells Ovalocytes [place] Cells PT INR APTT Puncture Site Rra pCO2 47 H pO2 168 H HCO3 25.5 ABG pH 7.36 ABG Total CO2 28.0 ABG O2 Saturation 100.3 H ABG Base Excess 0.6 Lyle Test Po ABG Potassium 4.2 A-a O2 Difference 486.0 Respiratory Index 2.9 Sodium 140.0 144 Chloride 111.0 H 107 Glucose 197 H Lactate 0.9 Vent Mode Prvc FiO2 100.0 Tidal Volume 500 PEEP 5 Potassium 4.6 Carbon Dioxide 25 Anion Gap 16 BUN 21 H Creatinine 1.2 Est GFR ( Amer) > 60 Est GFR (Non-Af Amer) 57 POC Glucose (mg/dL) 221 H Random Glucose 187 H Lactic Acid Calcium 7.7 L Magnesium 1.9 Total Bilirubin 0.4 AST 50 ALT 32 Alkaline Phosphatase 96 Troponin I 0.0790 Total Protein 5.1 L Albumin 2.3 L D Globulin 2.8 Albumin/Globulin Ratio 0.8 L Procalcitonin TSH 3rd Generation 4.05 Arterial Blood Potassium 4.2 Urine Color Urine Clarity Urine pH Ur Specific [place] Urine Protein Urine Glucose (UA) Urine Ketones Urine Blood Urine Nitrate Urine Bilirubin Urine Urobilinogen Ur Leukocyte Esterase Urine WBC (Auto) Urine RBC (Auto) Ur Squamous Epith Cells Urine Bacteria 10/10/17 10/10/17 10/10/17 12:02 12:02 12:02 WBC 16.5 H D RBC 2.33 L Hgb 7.5 L D Hct 21.7 L MCV 93.0 MCH 32.1 H MCHC 34.6 RDW 14.9 H Plt Count 167 MPV 7.7 Neut % (Auto) 91.9 H Lymph % (Auto) 2.0 L [place] % (Auto) 4.1 Eos % (Auto) 1.1 Baso % (Auto) 0.9 Neut # (Auto) 15.1 H Lymph # (Auto) 0.3 L [place] # (Auto) 0.7 Eos # (Auto) 0.2 Baso # (Auto) 0.2 Neutrophils % (Manual) 93 H Lymphocytes % (Manual) 1 L Monocytes % (Manual) 4 Eosinophils % (Manual) 2 Platelet Estimate Normal Hypochromasia (manual) Moderate Poikilocytosis (manual Slight Anisocytosis (manual) Slight Target Cells Slight Ovalocytes Slight [place]elyn Cells Slight PT 12.6 H INR 1.1 APTT 18 L Puncture Site pCO2 pO2 HCO3 ABG pH ABG Total CO2 ABG O2 Saturation ABG Base Excess Lyle Test ABG Potassium A-a O2 Difference Respiratory Index Sodium Chloride Glucose Lactate Vent Mode FiO2 Tidal Volume PEEP Potassium Carbon Dioxide Anion Gap BUN Creatinine Est GFR ( Amer) Est GFR (Non-Af Amer) POC Glucose (mg/dL) Random Glucose Lactic Acid 1.1 Calcium Magnesium Total Bilirubin AST ALT Alkaline Phosphatase Troponin I Total Protein Albumin Globulin Albumin/Globulin Ratio Procalcitonin TSH 3rd Generation Arterial Blood Potassium Urine Color Urine Clarity Urine pH Ur Specific [place] Urine Protein Urine Glucose (UA) Urine Ketones Urine Blood Urine Nitrate Urine Bilirubin Urine Urobilinogen Ur Leukocyte Esterase Urine WBC (Auto) Urine RBC (Auto) Ur Squamous Epith Cells Urine Bacteria 10/10/17 10/10/17 10/10/17 14:57 17:50 18:01 WBC RBC Hgb Hct MCV MCH MCHC RDW Plt Count MPV Neut % (Auto) Lymph % (Auto) [place] % (Auto) Eos % (Auto) Baso % (Auto) Neut # (Auto) Lymph # (Auto) [place] # (Auto) Eos # (Auto) Baso # (Auto) Neutrophils % (Manual) Lymphocytes % (Manual) Monocytes % (Manual) Eosinophils % (Manual) Platelet Estimate Hypochromasia (manual) Poikilocytosis (manual Anisocytosis (manual) Target Cells Ovalocytes [place] Cells PT INR APTT Puncture Site pCO2 pO2 HCO3 ABG pH ABG Total CO2 ABG O2 Saturation ABG Base Excess Lyle Test ABG Potassium A-a O2 Difference Respiratory Index Sodium Chloride Glucose Lactate Vent Mode FiO2 Tidal Volume PEEP Potassium Carbon Dioxide Anion Gap BUN Creatinine Est GFR ( Amer) Est GFR (Non-Af Amer) POC Glucose (mg/dL) 229 H Random Glucose Lactic Acid Calcium Magnesium Total Bilirubin AST ALT Alkaline Phosphatase Troponin I Total Protein Albumin Globulin Albumin/Globulin Ratio Procalcitonin 1.10 H TSH 3rd Generation Arterial Blood Potassium Urine Color Yellow Urine Clarity Hazy Urine pH 5.0 Ur Specific [place] 1.019 Urine Protein 2+ H Urine Glucose (UA) Normal Urine Ketones Negative Urine Blood 3+ H Urine Nitrate Negative Urine Bilirubin Negative Urine Urobilinogen Normal Ur Leukocyte Esterase Trace H Urine WBC (Auto) 3 Urine RBC (Auto) 45 H Ur Squamous Epith Cells < 1 Urine Bacteria Few H
[2017-10-11] MEDS: Cefepime IV 1 gm in Dextrose 1 GM/50 ML BAG IVPB SCH ×3 (00:35→23:57)
[2017-10-11] MEDS: (Novolog) Insulin Aspart, Recombinant 100 u/ml 10 ml vial SC SCH ×4 (00:55→17:48)
[2017-10-11] MEDS: Vancomycin 1 gm/NS 200 ml 1 GM/200 ML BAG IVPB SCH ×2 (05:23→18:07)
[2017-10-11 05:53] LABS: ABG ALLEN TEST POS; ARTERIAL BLOOD GAS HCO3 28.2 mmol/L (21-28); ARTERIAL BLOOD GAS HEMOGLOBIN 6.7 g/dL (11.7-17.4); ARTERIAL BLOOD GAS PCO2 40 mm/Hg (35-45); ARTERIAL BLOOD GAS PH 7.46 (7.35-7.45); ARTERIAL BLOOD GAS PO2 274 mm/Hg (80-100); ARTERIAL BLOOD GAS TCO2 29.6 mmol/L (22-28)
[2017-10-11 06:44] LABS: BASO # 0.1 K/uL (0.0-0.2); BASO % 0.4 % (0.0-2.0); EOS # 0.1 K/uL (0.0-0.7); EOS % 0.5 % (0.0-4.0); LYMPH # 0.4 K/uL (1.0-4.3); LYMPH % 2.6 % (20.0-40.0); MEAN CELL VOLUME 93.2 fL (80.0-94.0); MEAN CORPUSCULAR HEMOGLOBIN 31.7 pg (27.0-31.0); MEAN CORPUSCULAR HGB CONC 34.1 g/dL (33.0-37.0); MEAN PLATELET VOLUME 8.1 fL (7.2-11.7); MONO # 0.9 K/uL (0.0-0.8); MONO % 6.6 % (0.0-10.0); NEUT % 89.9 % (50.0-75.0); PLATELET COUNT 178 K/uL (130-400); RBC 2.06 Mil/uL (4.40-5.90); RED CELL DISTRIBUTION WIDTH 15.2 % (11.5-14.5); WHITE BLOOD COUNT 14.5 K/uL (4.8-10.8)
[2017-10-11 06:57] LABS: HEMOGLOBIN 6.5 g/dL (12.0-18.0)
[2017-10-11 07:18] LABS: ALB/GLOB RATIO 0.8 (1.0-2.1); ALBUMIN 2.1 g/dL (3.5-5.0); ALT/SGPT 26 U/L (21-72); AST/SGOT 42 U/L (17-59); BLOOD UREA NITROGEN 25 mg/dL (9-20); CALCIUM 7.5 mg/dl (8.6-10.4); GFR AFRICAN-AMERICAN > 60; GFR NON-AFRICAN AMERICAN 52
[2017-10-11 08:48] LABS: BANDS 5 % (0-2); LYMPHOCYTE 3 % (20-40); MONOCYTE 6 % (0-10); NEUTROPHIL 86 % (50-75); PLATELET ESTIMATE NORMAL (NORMAL); TOTAL CELLS COUNTED 100
[2017-10-11 08:51] LABS: HYPOCHROMIC SLIGHT; POLYCHROMIC SLIGHT
[2017-10-11 08:52] LABS: BURR CELLS SLIGHT; LARGE PLATELETS PRESENT; OVALOCYTES SLIGHT; SCHISTOCYTES SLIGHT
[2017-10-11 08:53] LABS: ANISOCYTOSIS MODERATE; POIKILOCYTOSIS MODERATE; TOXIC GRANULATION PRESENT
[2017-10-11] MEDS ORDERED: Enoxaparin 40 mg Syringe SC SCH (10:00)
--- NOTE | 2017-10-11 11:19 | CT ---
PROCEDURE: CT scan brain 10/11/2017 HISTORY: Reassess intraventricular hemorrhage COMPARISON: Comparison made with CT scan of the brain 10/10/2017. TECHNIQUE: Helical/transaxial computed tomography images were obtained through the head/brain without intravenous contrast. Radiation dose: Total exam DLP = 1273.59 mGy-cm. This CT exam was performed using one or more of the following dose reduction techniques: Automated exposure control, adjustment of the mA and/or kV according to patient size, and/or use of iterative reconstruction technique. Name Note the examination is limited by motion artifact FINDINGS: OTHER FINDINGS: Incidental note made of in situ ETT. HEMORRHAGE: Previously noted small hyperdense focus within the dependent portion right atrium/occipital horn is no longer visible. This may have represented artifact versus small hemorrhage that has since undergone resorption. BRAIN: Moderate diffuse/confluent chronic periventricular white matter ischemic changes Moderate to significant atrophy which appears more central, evidenced by disproportionate enlargement of the ventricles compared sulci. Mild vascular calcifications both carotid siphons VENTRICLES: Moderate to significant dilatation of the 3rd and lateral ventricles with relatively normal-appearing 4th ventricle. Findings could be secondary to significant central volume loss however chronic compensated obstructive hydrocephalus not excluded. NPH to be considered only if the clinical triad of dementia ataxia and incontinence is present. CALVARIUM: No acute fracture seen. PARANASAL SINUSES: Unremarkable as visualized. No significant inflammatory changes. . MASTOID AIR CELLS: Partial opacification left mastoid air complex. IMPRESSION: Limited motion degraded study. Previously noted small hyperdense focus within the dependent portion right atrium/occipital horn is no longer visible. This may have represented artifact versus small hemorrhage that has since undergone resorption. Chronic white matter ischemic changes. Moderate to significant dilatation of the 3rd and lateral ventricles with relatively normal-appearing 4th ventricle. Findings could be secondary to significant central volume loss however chronic compensated obstructive hydrocephalus not excluded. NPH to be considered only if the clinical triad of dementia ataxia and incontinence is present.
[2017-10-11] MEDS: Enoxaparin 40 mg Syringe SC SCH (12:27)
--- NOTE | 2017-10-11 13:21 | RAD ---
HISTORY: ETT COMPARISON: Comparison chest 10/10/2017 FINDINGS: In situ ETT, tip of which lies approximately 4.6 cm above rayna. LUNGS: Right lower lobe atelectasis and or infiltrate and right-sided effusion. There is also a left-sided effusion and suspected left basilar atelectasis central pulmonary vasculature is slightly increased PLEURA: As above. No apparent CARDIOVASCULAR: Heart size stable. No change bipolar pacemaker. OSSEOUS STRUCTURES: No significant abnormalities. VISUALIZED UPPER ABDOMEN: Normal. OTHER FINDINGS: None. IMPRESSION: Right lower lobe atelectasis and or infiltrate and right-sided effusion. There is also a left-sided effusion and suspected left basilar atelectasis central pulmonary vasculature is slightly increased
--- NOTE | 2017-10-11 15:26 | CP.CCUPN ---
CCU Subjective - Physician Review Events Since Last Encounter (Free Text): 10/11/17 15:21 moving all upper extremities, not following commands, responds to painful stimuli. CCU Objective - Vital Signs / Intake & Output Vital Signs (Last 4 hours): Vital Signs Temp Pulse Resp BP Pulse Ox 10/11/17 15:20 116/45 L 10/11/17 14:49 98.3 F 71 16 106/40 L 10/11/17 14:34 98.3 F 75 17 112/45 L 10/11/17 14:19 98.2 F 76 18 120/51 L 10/11/17 14:08 82 120/51 L 100 10/11/17 14:00 72 99 10/11/17 13:41 73 109/44 L 98 10/11/17 13:00 74 99 10/11/17 12:41 74 108/44 L 99 10/11/17 12:39 100 10/11/17 12:00 98.9 F 70 17 97 10/11/17 11:41 72 15 97/34 L 98 Intake and Output (Last 8hrs): Intake & Output 10/11/17 10/11/17 10/11/17 06:59 14:59 22:59 Intake Total 230 340 Output Total 225 170 Balance 5 170 Weight 145 lb 4.554 oz Intake: Intake, IV Amount 50 Right Antecubital 50 Tube Feeding 230 240 Blood Product 0 Red Blood Cells Cpd As1 0 Lr Unit [id number] Other 50 Output: Urine 225 170 Urethral (Lopez) 225 170 Other: # Bowel Movements 1 - Physical Exam Physical Exam Limitations: Positive for: Altered Mental Status Head: Positive for: Atraumatic, Normocephalic Pupils: Positive for: PERRL Extroacular Muscles: Positive for: EOMI Conjunctiva: Positive for: Normal Mouth: Positive for: Dry Respiratory/Chest: Positive for: Clear to Auscultation, Decreased Breath Sounds (at bases) Cardiovascular: Positive for: Regular Rate and Rhythm Abdomen: Positive for: Normal Bowel Sounds. Negative for: Tenderness, Distention Upper Extremity: Positive for: Normal Inspection Lower Extremity: Positive for: Edema Psychiatric: Positive for: Alert. Negative for: Oriented x 3 - Medications Active Medications: Active Medications Generic Name Dose Route Start Last Admin Trade Name Freq PRN Reason Stop Dose Admin Enoxaparin Sodium 40 mg 10/11/17 11:15 10/11/17 12:27 Lovenox SC 40 mg DAILY JEFFERY Administration Cefepime HCl 1 gm in 50 mls @ 100 mls/hr 10/11/17 00:00 10/11/17 11:30 Maxipime Iv 1 Gm Premix IVPB 100 mls/hr Q12H JEFFERY Administration Protocol Azithromycin 500 mg/ Sodium 250 mls @ 250 mls/hr 10/10/17 16:00 10/10/17 15: 53 Chloride IVPB 250 mls/hr DAILY@1600 JEFFERY Administration Protocol Vancomycin/Sodium Chloride 1 gm in 200 mls @ 133 mls/hr 10/10/17 18:00 05:23 Vancomycin 1 Gm/Ns 200 Ml IVPB 10/15/17 18:01 133 mls/hr Q12H JEFFERY Administration Protocol Insulin Aspart 0 unit 10/10/17 18:00 10/11/17 11:57 Novolog SC Not Given Q6 JEFFERY Protocol Pantoprazole Sodium 40 mg 10/11/17 10:00 10/11/17 09:02 Protonix Inj IVP 40 mg DAILY JEFFERY Administration Pneumococcal Polyvalent Vaccine 0.5 ml 10/13/17 10:00 Pneumovax 23 Vaccine IM 10/13/17 10:01 .ONCE ONE - Patient Studies Lab Studies: Lab Studies 10/11/17 10/11/17 10/11/17 Range/Units 11:52 11:26 06:39 WBC 14.5 H (4.8-10.8) K/uL RBC 2.06 L (4.40-5.90) Mil/uL Hgb 6.5 L* (12.0-18.0) g/dL Hct 19.2 L (35.0-51.0) % MCV 93.2 (80.0-94.0) fL MCH 31.7 H (27.0-31.0) pg MCHC 34.1 (33.0-37.0) g/dL RDW 15.2 H (11.5-14.5) % Plt Count 178 (130-400) K/uL MPV 8.1 (7.2-11.7) fL Neut % (Auto) 89.9 H (50.0-75.0) % Lymph % (Auto) 2.6 L (20.0-40.0) % [place] % (Auto) 6.6 (0.0-10.0) % Eos % (Auto) 0.5 (0.0-4.0) % Baso % (Auto) 0.4 (0.0-2.0) % Neut # (Auto) 13.0 H (1.8-7.0) K/uL Lymph # (Auto) 0.4 L (1.0-4.3) K/uL [place] # (Auto) 0.9 H (0.0-0.8) K/uL Eos # (Auto) 0.1 (0.0-0.7) K/uL Baso # (Auto) 0.1 (0.0-0.2) K/uL Neutrophils % (Manual) 86 H (50-75) % Band Neutrophils % 5 H (0-2) % Lymphocytes % (Manual) 3 L (20-40) % Monocytes % (Manual) 6 (0-10) % Toxic Granulation Present Platelet Estimate Normal (NORMAL) Large Platelets Present Polychromasia Slight Hypochromasia (manual) Slight Poikilocytosis (manual Moderate Anisocytosis (manual) Moderate Ovalocytes Slight Evelyn Cells Slight Schistocytes Slight Puncture Site pCO2 (35-45) mm/Hg pO2 (80-100) mm/Hg HCO3 (21-28) mmol/L ABG pH (7.35-7.45) ABG Total CO2 (22-28) mmol/L ABG O2 Saturation (95-98) % ABG Base Excess (-2.0-3.0) mmol/L ABG Hemoglobin (11.7-17.4) g/dL ABG Carboxyhemoglobin (0.5-1.5) % POC ABG HHb (Measured) (0.0-5.0) % ABG Methemoglobin (0.0-3.0) % Lyle Test A-a O2 Difference mm/Hg Respiratory Index Hgb O2 Saturation (95.0-98.0) % Vent Mode Mechanical Rate FiO2 % Tidal Volume PEEP Sodium (132-148) mmol/L Potassium (3.6-5.2) mmol/L Chloride (98-107) mmol/L Carbon Dioxide (22-30) mmol/L Anion Gap (10-20) BUN (9-20) mg/dL Creatinine (0.8-1.5) mg/dL Est GFR ( Amer) Est GFR (Non-Af Amer) POC Glucose (mg/dL) 124 H (65-110) mg/dL Random Glucose (75-110) mg/dL Calcium (8.6-10.4) mg/dl Phosphorus (2.5-4.5) mg/dL Magnesium (1.6-2.3) mg/dL Total Bilirubin (0.2-1.3) mg/dL AST (17-59) U/L ALT (21-72) U/L Alkaline Phosphatase (38-126) U/L Total Protein (6.3-8.3) g/dL Albumin (3.5-5.0) g/dL Globulin (2.2-3.9) gm/dL Albumin/Globulin Ratio (1.0-2.1) Procalcitonin (0.19-0.49) NG/ML Urine Color (YELLOW) Urine Clarity (Clear) Urine pH (5.0-8.0) Ur Specific Kite (1.003-1.030) Urine Protein (NEGATIVE) mg/dL Urine Glucose (UA) (Normal) mg/dL Urine Ketones (NEGATIVE) mg/dL Urine Blood (NEGATIVE) Urine Nitrate (NEGATIVE) Urine Bilirubin (NEGATIVE) Urine Urobilinogen (0.2-1.0) mg/dL Ur Leukocyte Esterase (Negative) Rosa/uL Urine WBC (Auto) (0-5) /hpf Urine RBC (Auto) (0-3) /hpf Ur Squamous Epith Cells (0-5) /hpf Urine Bacteria (<OCC) C. difficile Ag & Toxin (NEGATIVE) Blood Type A POSITIVE Antibody Screen Negative 10/11/17 10/11/17 10/11/17 Range/Units 06:38 05:33 05:28 WBC (4.8-10.8) K/uL RBC (4.40-5.90) Mil/uL Hgb (12.0-18.0) g/dL Hct (35.0-51.0) % MCV (80.0-94.0) fL MCH (27.0-31.0) pg MCHC (33.0-37.0) g/dL RDW (11.5-14.5) % Plt Count (130-400) K/uL MPV (7.2-11.7) fL Neut % (Auto) (50.0-75.0) % Lymph % (Auto) (20.0-40.0) % [place] % (Auto) (0.0-10.0) % Eos % (Auto) (0.0-4.0) % Baso % (Auto) (0.0-2.0) % Neut # (Auto) (1.8-7.0) K/uL Lymph # (Auto) (1.0-4.3) K/uL [place] # (Auto) (0.0-0.8) K/uL Eos # (Auto) (0.0-0.7) K/uL Baso # (Auto) (0.0-0.2) K/uL Neutrophils % (Manual) (50-75) % Band Neutrophils % (0-2) % Lymphocytes % (Manual) (20-40) % Monocytes % (Manual) (0-10) % Toxic Granulation Platelet Estimate (NORMAL) Large Platelets Polychromasia Hypochromasia (manual) Poikilocytosis (manual Anisocytosis (manual) Ovalocytes Evelyn Cells Schistocytes Puncture Site Lr pCO2 40 (35-45) mm/Hg pO2 274 H (80-100) mm/Hg HCO3 28.2 H (21-28) mmol/L ABG pH 7.46 H (7.35-7.45) ABG Total CO2 29.6 H (22-28) mmol/L ABG O2 Saturation 100.0 H (95-98) % ABG Base Excess 4.2 H (-2.0-3.0) mmol/L ABG Hemoglobin 6.7 L (11.7-17.4) g/dL ABG Carboxyhemoglobin 1.2 (0.5-1.5) % POC ABG HHb (Measured) 0.0 (0.0-5.0) % ABG Methemoglobin 0.9 (0.0-3.0) % Lyle Test Pos A-a O2 Difference 318.0 mm/Hg Respiratory Index 1.2 Hgb O2 Saturation 97.9 (95.0-98.0) % Vent Mode Prvc Mechanical Rate 16 FiO2 90.0 % Tidal Volume 500 PEEP 5 Sodium 141 (132-148) mmol/L Potassium 4.4 (3.6-5.2) mmol/L Chloride 108 H (98-107) mmol/L Carbon Dioxide 26 (22-30) mmol/L Anion Gap 12 (10-20) BUN 25 H (9-20) mg/dL Creatinine 1.3 (0.8-1.5) mg/dL Est GFR ( Amer) > 60 Est GFR (Non-Af Amer) 52 POC Glucose (mg/dL) 214 H (65-110) mg/dL Random Glucose 178 H (75-110) mg/dL Calcium 7.5 L (8.6-10.4) mg/dl Phosphorus 2.1 L (2.5-4.5) mg/dL Magnesium 2.0 (1.6-2.3) mg/dL Total Bilirubin 0.2 (0.2-1.3) mg/dL AST 42 (17-59) U/L ALT 26 (21-72) U/L Alkaline Phosphatase 89 (38-126) U/L Total Protein 4.7 L (6.3-8.3) g/dL Albumin 2.1 L (3.5-5.0) g/dL Globulin 2.6 (2.2-3.9) gm/dL Albumin/Globulin Ratio 0.8 L (1.0-2.1) Procalcitonin (0.19-0.49) NG/ML Urine Color (YELLOW) Urine Clarity (Clear) Urine pH (5.0-8.0) Ur Specific Kite (1.003-1.030) Urine Protein (NEGATIVE) mg/dL Urine Glucose (UA) (Normal) mg/dL Urine Ketones (NEGATIVE) mg/dL Urine Blood (NEGATIVE) Urine Nitrate (NEGATIVE) Urine Bilirubin (NEGATIVE) Urine Urobilinogen (0.2-1.0) mg/dL Ur Leukocyte Esterase (Negative) Rosa/uL Urine WBC (Auto) (0-5) /hpf Urine RBC (Auto) (0-3) /hpf Ur Squamous Epith Cells (0-5) /hpf Urine Bacteria (<OCC) C. difficile Ag & Toxin (NEGATIVE) Blood Type Antibody Screen 10/11/17 10/10/17 10/10/17 Range/Units 00:42 18:01 17:50 WBC (4.8-10.8) K/uL RBC (4.40-5.90) Mil/uL Hgb (12.0-18.0) g/dL Hct (35.0-51.0) % MCV (80.0-94.0) fL MCH (27.0-31.0) pg MCHC (33.0-37.0) g/dL RDW (11.5-14.5) % Plt Count (130-400) K/uL MPV (7.2-11.7) fL Neut % (Auto) (50.0-75.0) % Lymph % (Auto) (20.0-40.0) % [place] % (Auto) (0.0-10.0) % Eos % (Auto) (0.0-4.0) % Baso % (Auto) (0.0-2.0) % Neut # (Auto) (1.8-7.0) K/uL Lymph # (Auto) (1.0-4.3) K/uL [place] # (Auto) (0.0-0.8) K/uL Eos # (Auto) (0.0-0.7) K/uL Baso # (Auto) (0.0-0.2) K/uL Neutrophils % (Manual) (50-75) % Band Neutrophils % (0-2) % Lymphocytes % (Manual) (20-40) % Monocytes % (Manual) (0-10) % Toxic Granulation Platelet Estimate (NORMAL) Large Platelets Polychromasia Hypochromasia (manual) Poikilocytosis (manual Anisocytosis (manual) Ovalocytes Evelyn Cells Schistocytes Puncture Site pCO2 (35-45) mm/Hg pO2 (80-100) mm/Hg HCO3 (21-28) mmol/L ABG pH (7.35-7.45) ABG Total CO2 (22-28) mmol/L ABG O2 Saturation (95-98) % ABG Base Excess (-2.0-3.0) mmol/L ABG Hemoglobin (11.7-17.4) g/dL ABG Carboxyhemoglobin (0.5-1.5) % POC ABG HHb (Measured) (0.0-5.0) % ABG Methemoglobin (0.0-3.0) % Lyle Test A-a O2 Difference mm/Hg Respiratory Index Hgb O2 Saturation (95.0-98.0) % Vent Mode Mechanical Rate FiO2 % Tidal Volume PEEP Sodium (132-148) mmol/L Potassium (3.6-5.2) mmol/L Chloride (98-107) mmol/L Carbon Dioxide (22-30) mmol/L Anion Gap (10-20) BUN (9-20) mg/dL Creatinine (0.8-1.5) mg/dL Est GFR ( Amer) Est GFR (Non-Af Amer) POC Glucose (mg/dL) 152 H 229 H (65-110) mg/dL Random Glucose (75-110) mg/dL Calcium (8.6-10.4) mg/dl Phosphorus (2.5-4.5) mg/dL Magnesium (1.6-2.3) mg/dL Total Bilirubin (0.2-1.3) mg/dL AST (17-59) U/L ALT (21-72) U/L Alkaline Phosphatase (38-126) U/L Total Protein (6.3-8.3) g/dL Albumin (3.5-5.0) g/dL Globulin (2.2-3.9) gm/dL Albumin/Globulin Ratio (1.0-2.1) Procalcitonin (0.19-0.49) NG/ML Urine Color Yellow (YELLOW) Urine Clarity Hazy (Clear) Urine pH 5.0 (5.0-8.0) Ur Specific Kite 1.019 (1.003-1.030) Urine Protein 2+ H (NEGATIVE) mg/dL Urine Glucose (UA) Normal (Normal) mg/dL Urine Ketones Negative (NEGATIVE) mg/dL Urine Blood 3+ H (NEGATIVE) Urine Nitrate Negative (NEGATIVE) Urine Bilirubin Negative (NEGATIVE) Urine Urobilinogen Normal (0.2-1.0) mg/dL Ur Leukocyte Esterase Trace H (Negative) Rosa/uL Urine WBC (Auto) 3 (0-5) /hpf Urine RBC (Auto) 45 H (0-3) /hpf Ur Squamous Epith Cells < 1 (0-5) /hpf Urine Bacteria Few H (<OCC) C. difficile Ag & Toxin (NEGATIVE) Blood Type Antibody Screen 10/10/17 10/10/17 Range/Units 14:57 06:00 WBC (4.8-10.8) K/uL RBC (4.40-5.90) Mil/uL Hgb (12.0-18.0) g/dL Hct (35.0-51.0) % MCV (80.0-94.0) fL MCH (27.0-31.0) pg MCHC (33.0-37.0) g/dL RDW (11.5-14.5) % Plt Count (130-400) K/uL MPV (7.2-11.7) fL Neut % (Auto) (50.0-75.0) % Lymph % (Auto) (20.0-40.0) % [place] % (Auto) (0.0-10.0) % Eos % (Auto) (0.0-4.0) % Baso % (Auto) (0.0-2.0) % Neut # (Auto) (1.8-7.0) K/uL Lymph # (Auto) (1.0-4.3) K/uL [place] # (Auto) (0.0-0.8) K/uL Eos # (Auto) (0.0-0.7) K/uL Baso # (Auto) (0.0-0.2) K/uL Neutrophils % (Manual) (50-75) % Band Neutrophils % (0-2) % Lymphocytes % (Manual) (20-40) % Monocytes % (Manual) (0-10) % Toxic Granulation Platelet Estimate (NORMAL) Large Platelets Polychromasia Hypochromasia (manual) Poikilocytosis (manual Anisocytosis (manual) Ovalocytes Evelyn Cells Schistocytes Puncture Site pCO2 (35-45) mm/Hg pO2 (80-100) mm/Hg HCO3 (21-28) mmol/L ABG pH (7.35-7.45) ABG Total CO2 (22-28) mmol/L ABG O2 Saturation (95-98) % ABG Base Excess (-2.0-3.0) mmol/L ABG Hemoglobin (11.7-17.4) g/dL ABG Carboxyhemoglobin (0.5-1.5) % POC ABG HHb (Measured) (0.0-5.0) % ABG Methemoglobin (0.0-3.0) % Lyle Test A-a O2 Difference mm/Hg Respiratory Index Hgb O2 Saturation (95.0-98.0) % Vent Mode Mechanical Rate FiO2 % Tidal Volume PEEP Sodium (132-148) mmol/L Potassium (3.6-5.2) mmol/L Chloride (98-107) mmol/L Carbon Dioxide (22-30) mmol/L Anion Gap (10-20) BUN (9-20) mg/dL Creatinine (0.8-1.5) mg/dL Est GFR ( Amer) Est GFR (Non-Af Amer) POC Glucose (mg/dL) (65-110) mg/dL Random Glucose (75-110) mg/dL Calcium (8.6-10.4) mg/dl Phosphorus (2.5-4.5) mg/dL Magnesium (1.6-2.3) mg/dL Total Bilirubin (0.2-1.3) mg/dL AST (17-59) U/L ALT (21-72) U/L Alkaline Phosphatase (38-126) U/L Total Protein (6.3-8.3) g/dL Albumin (3.5-5.0) g/dL Globulin (2.2-3.9) gm/dL Albumin/Globulin Ratio (1.0-2.1) Procalcitonin 1.10 H (0.19-0.49) NG/ML Urine Color (YELLOW) Urine Clarity (Clear) Urine pH (5.0-8.0) Ur Specific Kite (1.003-1.030) Urine Protein (NEGATIVE) mg/dL Urine Glucose (UA) (Normal) mg/dL Urine Ketones (NEGATIVE) mg/dL Urine Blood (NEGATIVE) Urine Nitrate (NEGATIVE) Urine Bilirubin (NEGATIVE) Urine Urobilinogen (0.2-1.0) mg/dL Ur Leukocyte Esterase (Negative) Rosa/uL Urine WBC (Auto) (0-5) /hpf Urine RBC (Auto) (0-3) /hpf Ur Squamous Epith Cells (0-5) /hpf Urine Bacteria (<OCC) C. difficile Ag & Toxin Negative (NEGATIVE) Blood Type Antibody Screen Laboratory Results - last 24 hr 10/10/17 10/10/17 10/10/17 06:00 14:57 17:50 WBC RBC Hgb Hct MCV MCH MCHC RDW Plt Count MPV Neut % (Auto) Lymph % (Auto) [place] % (Auto) Eos % (Auto) Baso % (Auto) Neut # (Auto) Lymph # (Auto) [place] # (Auto) Eos # (Auto) Baso # (Auto) Neutrophils % (Manual) Band Neutrophils % Lymphocytes % (Manual) Monocytes % (Manual) Toxic Granulation Platelet Estimate Large Platelets Polychromasia Hypochromasia (manual) Poikilocytosis (manual Anisocytosis (manual) Ovalocytes Evelyn Cells Schistocytes Puncture Site pCO2 pO2 HCO3 ABG pH ABG Total CO2 ABG O2 Saturation ABG Base Excess ABG Hemoglobin ABG Carboxyhemoglobin POC ABG HHb (Measured) ABG Methemoglobin Lyle Test A-a O2 Difference Respiratory Index Hgb O2 Saturation Vent Mode Mechanical Rate FiO2 Tidal Volume PEEP Sodium Potassium Chloride Carbon Dioxide Anion Gap BUN Creatinine Est GFR ( Amer) Est GFR (Non-Af Amer) POC Glucose (mg/dL) Random Glucose Calcium Phosphorus Magnesium Total Bilirubin AST ALT Alkaline Phosphatase Total Protein Albumin Globulin Albumin/Globulin Ratio Procalcitonin 1.10 H Urine Color Yellow Urine Clarity Hazy Urine pH 5.0 Ur Specific Kite 1.019 Urine Protein 2+ H Urine Glucose (UA) Normal Urine Ketones Negative Urine Blood 3+ H Urine Nitrate Negative Urine Bilirubin Negative Urine Urobilinogen Normal Ur Leukocyte Esterase Trace H Urine WBC (Auto) 3 Urine RBC (Auto) 45 H Ur Squamous Epith Cells < 1 Urine Bacteria Few H C. difficile Ag & Toxin Negative Blood Type Antibody Screen 10/10/17 10/11/17 10/11/17 18:01 00:42 05:28 WBC RBC Hgb Hct MCV MCH MCHC RDW Plt Count MPV Neut % (Auto) Lymph % (Auto) [place] % (Auto) Eos % (Auto) Baso % (Auto) Neut # (Auto) Lymph # (Auto) [place] # (Auto) Eos # (Auto) Baso # (Auto) Neutrophils % (Manual) Band Neutrophils % Lymphocytes % (Manual) Monocytes % (Manual) Toxic Granulation Platelet Estimate Large Platelets Polychromasia Hypochromasia (manual) Poikilocytosis (manual Anisocytosis (manual) Ovalocytes Evelyn Cells Schistocytes Puncture Site pCO2 pO2 HCO3 ABG pH ABG Total CO2 ABG O2 Saturation ABG Base Excess ABG Hemoglobin ABG Carboxyhemoglobin POC ABG HHb (Measured) ABG Methemoglobin Lyle Test A-a O2 Difference Respiratory Index Hgb O2 Saturation Vent Mode Mechanical Rate FiO2 Tidal Volume PEEP Sodium Potassium Chloride Carbon Dioxide Anion Gap BUN Creatinine Est GFR ( Amer) Est GFR (Non-Af Amer) POC Glucose (mg/dL) 229 H 152 H 214 H Random Glucose Calcium Phosphorus Magnesium Total Bilirubin AST ALT Alkaline Phosphatase Total Protein Albumin Globulin Albumin/Globulin Ratio Procalcitonin Urine Color Urine Clarity Urine pH Ur Specific Kite Urine Protein Urine Glucose (UA) Urine Ketones Urine Blood Urine Nitrate Urine Bilirubin Urine Urobilinogen Ur Leukocyte Esterase Urine WBC (Auto) Urine RBC (Auto) Ur Squamous Epith Cells Urine Bacteria C. difficile Ag & Toxin Blood Type Antibody Screen 10/11/17 10/11/17 10/11/17 05:33 06:38 06:39 WBC 14.5 H RBC 2.06 L Hgb 6.5 L* Hct 19.2 L MCV 93.2 MCH 31.7 H MCHC 34.1 RDW 15.2 H Plt Count 178 MPV 8.1 Neut % (Auto) 89.9 H Lymph % (Auto) 2.6 L [place] % (Auto) 6.6 Eos % (Auto) 0.5 Baso % (Auto) 0.4 Neut # (Auto) 13.0 H Lymph # (Auto) 0.4 L [place] # (Auto) 0.9 H Eos # (Auto) 0.1 Baso # (Auto) 0.1 Neutrophils % (Manual) 86 H Band Neutrophils % 5 H Lymphocytes % (Manual) 3 L Monocytes % (Manual) 6 Toxic Granulation Present Platelet Estimate Normal Large Platelets Present Polychromasia Slight Hypochromasia (manual) Slight Poikilocytosis (manual Moderate Anisocytosis (manual) Moderate Ovalocytes Slight [place] Cells Slight Schistocytes Slight Puncture Site Lr pCO2 40 pO2 274 H HCO3 28.2 H ABG pH 7.46 H ABG Total CO2 29.6 H ABG O2 Saturation 100.0 H ABG Base Excess 4.2 H ABG Hemoglobin 6.7 L ABG Carboxyhemoglobin 1.2 POC ABG HHb (Measured) 0.0 ABG Methemoglobin 0.9 Lyle Test Pos A-a O2 Difference 318.0 Respiratory Index 1.2 Hgb O2 Saturation 97.9 Vent Mode Prvc Mechanical Rate 16 FiO2 90.0 Tidal Volume 500 PEEP 5 Sodium 141 Potassium 4.4 Chloride 108 H Carbon Dioxide 26 Anion Gap 12 BUN 25 H Creatinine 1.3 Est GFR ( Amer) > 60 Est GFR (Non-Af Amer) 52 POC Glucose (mg/dL) Random Glucose 178 H Calcium 7.5 L Phosphorus 2.1 L Magnesium 2.0 Total Bilirubin 0.2 AST 42 ALT 26 Alkaline Phosphatase 89 Total Protein 4.7 L Albumin 2.1 L Globulin 2.6 Albumin/Globulin Ratio 0.8 L Procalcitonin Urine Color Urine Clarity Urine pH Ur Specific Kite Urine Protein Urine Glucose (UA) Urine Ketones Urine Blood Urine Nitrate Urine Bilirubin Urine Urobilinogen Ur Leukocyte Esterase Urine WBC (Auto) Urine RBC (Auto) Ur Squamous Epith Cells Urine Bacteria C. difficile Ag & Toxin Blood Type Antibody Screen 10/11/17 10/11/17 11:26 11:52 WBC RBC Hgb Hct MCV MCH MCHC RDW Plt Count MPV Neut % (Auto) Lymph % (Auto) [place] % (Auto) Eos % (Auto) Baso % (Auto) Neut # (Auto) Lymph # (Auto) [place] # (Auto) Eos # (Auto) Baso # (Auto) Neutrophils % (Manual) Band Neutrophils % Lymphocytes % (Manual) Monocytes % (Manual) Toxic Granulation Platelet Estimate Large Platelets Polychromasia Hypochromasia (manual) Poikilocytosis (manual Anisocytosis (manual) Ovalocytes Evelyn Cells Schistocytes Puncture Site pCO2 pO2 HCO3 ABG pH ABG Total CO2 ABG O2 Saturation ABG Base Excess ABG Hemoglobin ABG Carboxyhemoglobin POC ABG HHb (Measured) ABG Methemoglobin Lyle Test A-a O2 Difference Respiratory Index Hgb O2 Saturation Vent Mode Mechanical Rate FiO2 Tidal Volume PEEP Sodium Potassium Chloride Carbon Dioxide Anion Gap BUN Creatinine Est GFR ( Amer) Est GFR (Non-Af Amer) POC Glucose (mg/dL) 124 H Random Glucose Calcium Phosphorus Magnesium Total Bilirubin AST ALT Alkaline Phosphatase Total Protein Albumin Globulin Albumin/Globulin Ratio Procalcitonin Urine Color Urine Clarity Urine pH Ur Specific Kite Urine Protein Urine Glucose (UA) Urine Ketones Urine Blood Urine Nitrate Urine Bilirubin Urine Urobilinogen Ur Leukocyte Esterase Urine WBC (Auto) Urine RBC (Auto) Ur Squamous Epith Cells Urine Bacteria C. difficile Ag & Toxin Blood Type A POSITIVE Antibody Screen Negative Fingerstick Blood Sugar Results: 124 Review of Systems - Review of Systems Systems not reviewed;Unavailable: Altered Mental Status Critical Care Progress Note - Nutrition Nutrition: Nutrition Category Date Time Status NPO Diet [DIET] Diets 10/10/17 Dinner Active Assessment/Plan (1) Respiratory arrest Assessment and plan: 87 year old male with PMHx CAD, pacemaker, DM2, CHF, HLD, dementia who presented from the [facility] in respiratory arrest. Neuro: alert, not following commands, responds to painful stimuli. Pulm: acute respiratory failure on vent, tolerating PS trials. Pleural effusions, will try to diurese, but may need thoracentesis. CV: hemodynamically stable. Hem: acute on chronic anemia of chronic disease with critical illness. Transfusing 2 units PRBC. Renal: oliguria, transfusing with diuretic to improve urinary output and to remove some pulmonary fluid. Endo: DM type 2, SISS for coverage. GI: NPO, Glucerna ID: sepsis from pneumonia, continue Vancomycin, Azithromycin and Cefepime. DVT proph - lovenox GI proph - protonix lopez for strict I/O's during acute illness Code status - full code Critical Care Time spent 35 minutes Multi-disciplinary rounds were performed with house staff, nursing, speech therapy, respiratory therapy, pharmacy and nutrition with integrated input from the primary team/attending and other consulting services. The documented time is cumulative and includes review of patient data/exams/labs/chart review and examination of the patient on rounds and throughout the day; time is exclusive of any procedures or teaching time. Current Visit: Yes Status: Acute
[2017-10-11] MEDS: Azithromycin 500 MG in Sodium Chloride 0.9% 250 ML IVPB SCH (17:14)
--- NOTE | 2017-10-11 19:39 | CP.PCM.PN ---
Subjective - Date & Time of Evaluation Date of Evaluation: 10/11/17 Time of Evaluation: 12:00 - Subjective Subjective: clinically same Objective - Vital Signs/Intake and Output Vital Signs (last 24 hours): Temp Pulse Resp BP Pulse Ox 99 F 98 H 26 H 138/63 100 10/11/17 17:32 10/11/17 19:15 10/11/17 18:00 10/11/17 19:15 10/11/17 19:15 Intake and Output: 10/11/17 10/12/17 18:59 06:59 Intake Total 1155 40 Output Total 575 175 Balance 580 -135 - Medications Medications: Current Medications Enoxaparin Sodium (Lovenox) 40 mg SC DAILY [facility] Last Admin: 10/11/17 12:27 Dose: 40 mg Cefepime HCl (Maxipime Iv 1 Gm Premix) 1 gm in 50 mls @ 100 mls/hr IVPB Q12H JEFFERY PRN Reason: Protocol Last Admin: 10/11/17 11:30 Dose: 100 mls/hr Azithromycin 500 mg/ Sodium (Chloride) 250 mls @ 250 mls/hr IVPB DAILY@1600 JEFFERY PRN Reason: Protocol Last Admin: 10/11/17 17:14 Dose: 250 mls/hr Vancomycin/Sodium Chloride (Vancomycin 1 Gm/Ns 200 Ml) 1 gm in 200 mls @ 133 mls/hr IVPB Q12H JEFFERY PRN Reason: Protocol Stop: 10/15/17 18:01 Last Admin: 10/11/17 18:07 Dose: 133 mls/hr Insulin Aspart (Novolog) 0 unit SC Q6 JEFFERY PRN Reason: Protocol Last Admin: 10/11/17 17:48 Dose: 3 unit Pantoprazole Sodium (Protonix Inj) 40 mg IVP DAILY [facility] Last Admin: 10/11/17 09:02 Dose: 40 mg Pneumococcal Polyvalent Vaccine (Pneumovax 23 Vaccine) 0.5 ml IM .ONCE ONE Stop: 10/13/17 10:01 - Labs Labs: 10/11/17 06:39 10/11/17 06:38 PT 12.6 SECONDS (9.7-12.2) H 10/10/17 12:02 INR 1.1 10/10/17 12:02 APTT 18 SECONDS (21-34) L 10/10/17 12:02 - Constitutional Appears: Well - Head Exam Head Exam: ATRAUMATIC, NORMAL INSPECTION, NORMOCEPHALIC - Eye Exam Eye Exam: EOMI, Normal appearance, PERRL Pupil Exam: NORMAL ACCOMODATION, PERRL - ENT Exam ENT Exam: Mucous Membranes Moist, Normal Exam - Neck Exam Neck Exam: Full ROM, Normal Inspection. absent: Lymphadenopathy - Respiratory Exam Respiratory Exam: Decreased Breath Sounds - Cardiovascular Exam Cardiovascular Exam: REGULAR RHYTHM, +S1, +S2 - GI/Abdominal Exam GI & Abdominal Exam: Soft, Diminished Bowel Sounds - Rectal Exam Rectal Exam: Deferred
[2017-10-12] MEDS: (Novolog) Insulin Aspart, Recombinant 100 u/ml 10 ml vial SC SCH ×5 (00:11→23:40)
[2017-10-12 04:35] LABS: ABG ALLEN TEST POS; ARTERIAL BLOOD GAS HCO3 30.7 mmol/L (21-28); ARTERIAL BLOOD GAS HEMOGLOBIN 7.8 g/dL (11.7-17.4); ARTERIAL BLOOD GAS O2 SAT 100.1 % (95-98); ARTERIAL BLOOD GAS PCO2 17 mm/Hg (35-45); ARTERIAL BLOOD GAS PH 7.79 (7.35-7.45); ARTERIAL BLOOD GAS PO2 154 mm/Hg (80-100); ARTERIAL BLOOD GAS TCO2 26.3 mmol/L (22-28)
[2017-10-12] MEDS: Vancomycin 1 gm/NS 200 ml 1 GM/200 ML BAG IVPB SCH (06:12)
[2017-10-12 06:35] LABS: BASO % 0.4 % (0.0-2.0); EOS # 0.2 K/uL (0.0-0.7); HEMOGLOBIN 8.3 g/dL (12.0-18.0); LYMPH # 0.5 K/uL (1.0-4.3); LYMPH % 4.7 % (20.0-40.0); MEAN CELL VOLUME 91.3 fL (80.0-94.0); MEAN CORPUSCULAR HEMOGLOBIN 31.5 pg (27.0-31.0); MEAN CORPUSCULAR HGB CONC 34.5 g/dL (33.0-37.0); MEAN PLATELET VOLUME 7.9 fL (7.2-11.7); MONO # 0.9 K/uL (0.0-0.8); MONO % 7.6 % (0.0-10.0); NEUT # 9.6 K/uL (1.8-7.0); NEUT % 85.3 % (50.0-75.0); NRBC % 0.1 % (0.0-2.0); PLATELET COUNT 194 K/uL (130-400); RBC 2.64 Mil/uL (4.40-5.90); RED CELL DISTRIBUTION WIDTH 15.4 % (11.5-14.5); WHITE BLOOD COUNT 11.2 K/uL (4.8-10.8)
[2017-10-12 06:56] LABS: ALB/GLOB RATIO 0.8 (1.0-2.1); ALBUMIN 2.3 g/dL (3.5-5.0); CALCIUM 7.7 mg/dl (8.6-10.4)
[2017-10-12 07:35] LABS: ARTERIAL BLOOD GAS HCO3 27.9 mmol/L (21-28); ARTERIAL BLOOD GAS PCO2 42 mm/Hg (35-45); ARTERIAL BLOOD GAS PH 7.44 (7.35-7.45); ARTERIAL BLOOD GAS PO2 66 mm/Hg (80-100); ARTERIAL BLOOD GAS TCO2 29.8 mmol/L (22-28)
[2017-10-12 08:50] LABS: BANDS 1 % (0-2); EOSINOPHIL 2 % (0-4); LYMPHOCYTE 7 % (20-40); MONOCYTE 8 % (0-10); NEUTROPHIL 82 % (50-75); TOTAL CELLS COUNTED 100
[2017-10-12 08:51] LABS: ANISOCYTOSIS SLIGHT; BURR CELLS SLIGHT; HYPOCHROMIC SLIGHT; PLATELET ESTIMATE NORMAL (NORMAL); POIKILOCYTOSIS SLIGHT; POLYCHROMIC SLIGHT
[2017-10-12 08:52] LABS: OVALOCYTES SLIGHT; SCHISTOCYTES SLIGHT
[2017-10-12] MEDS: Enoxaparin 40 mg Syringe SC SCH (10:59)
[2017-10-12] MEDS: Cefepime IV 1 gm in Dextrose 1 GM/50 ML BAG IVPB SCH ×2 (11:00→23:46)
[2017-10-12] MEDS: Potassium & Sodium Phosphate PO SCH ×2 (11:32→17:41)
--- NOTE | 2017-10-12 11:58 | RAD ---
PROCEDURE: CHEST RADIOGRAPH, 1 VIEW HISTORY: Intubated patient COMPARISON: None available. FINDINGS: In situ ETT, tip of which lies approximately 3.14 cm above rayna. LUNGS: Hazy opacity right mid to lower lung zone consistent with some combination of layering effusion and probably some atelectasis and or infiltrate. Suspect minor left basilar atelectasis and small left-sided effusion PLEURA: As above. No apparent pneumothorax CARDIOVASCULAR: In situ bipolar pacemaker again noted. Heart size unchanged. OSSEOUS STRUCTURES: No significant abnormalities. VISUALIZED UPPER ABDOMEN: Normal. OTHER FINDINGS: None. IMPRESSION: In situ ETT Hazy opacity right mid to lower lung zone consistent with some combination of layering effusion and probably some atelectasis and or infiltrate. Suspect minor left basilar atelectasis and small left-sided effusion
--- NOTE | 2017-10-12 12:09 | CP.CCUPN ---
CCU Subjective - Physician Review Events Since Last Encounter (Free Text): 10/12/17 12:06 Patient seen and examinedin the intensive care unit. Case discussedwith house staff in the morning rounds. 87 year old male with PMHx CAD, pacemaker, DM2, CHF, HLD, dementia who presented from the longterm in respiratory arrest. Tolerating CPAP No response to vocal commands Afebrile Tolerating feeding CCU Objective - Vital Signs / Intake & Output Vital Signs (Last 4 hours): Vital Signs Temp Pulse BP Pulse Ox 10/12/17 11:13 82 133/52 L 100 10/12/17 11:00 99.3 F 83 100 10/12/17 10:13 76 119/44 L 99 10/12/17 10:00 93 H 100 10/12/17 09:13 67 101/41 L 100 10/12/17 09:00 71 99 10/12/17 08:13 83 152/69 H 100 Intake and Output (Last 8hrs): Intake & Output 10/11/17 10/12/17 10/12/17 22:59 06:59 14:59 Intake Total 1175 1040 250 Output Total 1080 460 200 Balance 95 580 50 Weight 145 lb Intake: Intake, IV Amount 450 375 50 Right Antecubital 450 375 50 Tube Feeding 300 320 200 Blood Product 325 325 Red Blood Cells Cpd As1 325 Lr Unit [id number] Red Blood Cells Cpd As1 0 325 Lr Unit [id number] Other 100 20 Red Blood Cells Cpd As1 50 Lr Unit [id number] Red Blood Cells Cpd As1 20 Lr Unit [id number] Output: Urine 1080 460 200 Urethral (Valladares) 1080 460 200 Other: # Bowel Movements 1 1 0 - Physical Exam Head: Positive for: Atraumatic, Normocephalic Pupils: Positive for: PERRL Extroacular Muscles: Positive for: EOMI Conjunctiva: Positive for: Normal Mouth: Positive for: Dry Respiratory/Chest: Positive for: Clear to Auscultation, Decreased Breath Sounds (at bases) Cardiovascular: Positive for: Regular Rate and Rhythm Abdomen: Positive for: Normal Bowel Sounds. Negative for: Tenderness, Distention Upper Extremity: Positive for: Normal Inspection Lower Extremity: Positive for: Edema Psychiatric: Positive for: Alert. Negative for: Oriented x 3 - Medications Active Medications: Active Medications Generic Name Dose Route Start Last Admin Trade Name Freq PRN Reason Stop Dose Admin Enoxaparin Sodium 40 mg 10/11/17 11:15 10/12/17 10:59 Lovenox SC 40 mg DAILY JEFFERY Administration Cefepime HCl 1 gm in 50 mls @ 100 mls/hr 10/11/17 00:00 10/12/17 11:00 Maxipime Iv 1 Gm Premix IVPB 100 mls/hr Q12H JEFFERY Administration Protocol Azithromycin 500 mg/ Sodium 250 mls @ 250 mls/hr 10/10/17 16:00 10/11/17 17: 14 Chloride IVPB 250 mls/hr DAILY@1600 JEFFERY Administration Protocol Vancomycin/Sodium Chloride 1 gm in 200 mls @ 133 mls/hr 10/10/17 18:00 06:12 Vancomycin 1 Gm/Ns 200 Ml IVPB 10/15/17 18:01 133 mls/hr Q12H JEFFERY Administration Protocol Insulin Aspart 0 unit 10/10/17 18:00 10/12/17 11:32 Novolog SC 2 unit Q6 JEFFERY Administration Protocol Pantoprazole Sodium 40 mg 10/11/17 10:00 10/12/17 10:59 Protonix Inj IVP 40 mg DAILY JEFFERY Administration Pneumococcal Polyvalent Vaccine 0.5 ml 10/13/17 10:00 Pneumovax 23 Vaccine IM 10/13/17 10:01 .ONCE ONE Potassium Phos/Sodium Phos 1 pkt 10/12/17 11:30 10/12/17 11:32 Neutra-Phos PO 10/14/17 11:31 1 pkt BID JEFFERY Administration - Patient Studies Lab Studies: Microbiology Studies 10/10/17 11:45 Blood Culture - Preliminary Blood NO GROWTH AFTER 24 HOURS 10/10/17 12:15 Blood Culture - Preliminary Blood NO GROWTH AFTER 24 HOURS 10/10/17 Unknown Urine Culture - Final Urine,Valladares No Growth (<1,000 CFU/ML) 10/10/17 Unknown MRSA Culture (Admit) - Final Naris MRSA NOT DETECTED Lab Studies 10/12/17 10/12/17 10/12/17 Range/Units 11:16 07:20 06:24 WBC 11.2 H (4.8-10.8) K/uL RBC 2.64 L (4.40-5.90) Mil/uL Hgb 8.3 L (12.0-18.0) g/dL Hct 24.1 L (35.0-51.0) % MCV 91.3 (80.0-94.0) fL MCH 31.5 H (27.0-31.0) pg MCHC 34.5 (33.0-37.0) g/dL RDW 15.4 H (11.5-14.5) % Plt Count 194 (130-400) K/uL MPV 7.9 (7.2-11.7) fL Neut % (Auto) 85.3 H (50.0-75.0) % Lymph % (Auto) 4.7 L (20.0-40.0) % O'Brien % (Auto) 7.6 (0.0-10.0) % Eos % (Auto) 2.0 (0.0-4.0) % Baso % (Auto) 0.4 (0.0-2.0) % Neut # (Auto) 9.6 H (1.8-7.0) K/uL Lymph # (Auto) 0.5 L (1.0-4.3) K/uL O'Brien # (Auto) 0.9 H (0.0-0.8) K/uL Eos # (Auto) 0.2 (0.0-0.7) K/uL Baso # (Auto) 0.0 (0.0-0.2) K/uL Neutrophils % (Manual) 82 H (50-75) % Band Neutrophils % 1 (0-2) % Lymphocytes % (Manual) 7 L (20-40) % Monocytes % (Manual) 8 (0-10) % Eosinophils % (Manual) 2 (0-4) % Platelet Estimate Normal (NORMAL) Polychromasia Slight Hypochromasia (manual) Slight Poikilocytosis (manual Slight Anisocytosis (manual) Slight Ovalocytes Slight Evelyn Cells Slight Schistocytes Slight Puncture Site Lf pCO2 42 (35-45) mm/Hg pO2 66 L (80-100) mm/Hg HCO3 27.9 (21-28) mmol/L ABG pH 7.44 (7.35-7.45) ABG Total CO2 29.8 H (22-28) mmol/L ABG O2 Saturation 97.0 (95-98) % ABG Base Excess 3.9 H (-2.0-3.0) mmol/L ABG Hemoglobin 10.0 L (11.7-17.4) g/dL ABG Carboxyhemoglobin 1.8 H (0.5-1.5) % POC ABG HHb (Measured) 2.9 (0.0-5.0) % ABG Methemoglobin 1.0 (0.0-3.0) % Lyle Test Na A-a O2 Difference 309.0 mm/Hg Respiratory Index 4.7 Hgb O2 Saturation 94.3 L (95.0-98.0) % Vent Mode Mechanical Rate 16 FiO2 60.0 % Tidal Volume 500 PEEP 5 Crit Value Called To Dr caba Crit Value Called By Betito marquez geographic information system surveyor Crit Value Read Back Y Blood Gas Notified Time 740 Sodium (132-148) mmol/L Potassium (3.6-5.2) mmol/L Chloride (98-107) mmol/L Carbon Dioxide (22-30) mmol/L Anion Gap (10-20) BUN (9-20) mg/dL Creatinine (0.8-1.5) mg/dL Est GFR ( Amer) Est GFR (Non-Af Amer) POC Glucose (mg/dL) 168 H (65-110) mg/dL Random Glucose (75-110) mg/dL Calcium (8.6-10.4) mg/dl Phosphorus (2.5-4.5) mg/dL Magnesium (1.6-2.3) mg/dL Total Bilirubin (0.2-1.3) mg/dL AST (17-59) U/L ALT (21-72) U/L Alkaline Phosphatase (38-126) U/L Total Protein (6.3-8.3) g/dL Albumin (3.5-5.0) g/dL Globulin (2.2-3.9) gm/dL Albumin/Globulin Ratio (1.0-2.1) Vancomycin Trough (5.0-10.0) ug/mL C. difficile Ag & Toxin (NEGATIVE) Blood Type Antibody Screen 10/12/17 10/12/17 10/12/17 Range/Units 06:21 06:21 06:05 WBC (4.8-10.8) K/uL RBC (4.40-5.90) Mil/uL Hgb (12.0-18.0) g/dL Hct (35.0-51.0) % MCV (80.0-94.0) fL MCH (27.0-31.0) pg MCHC (33.0-37.0) g/dL RDW (11.5-14.5) % Plt Count (130-400) K/uL MPV (7.2-11.7) fL Neut % (Auto) (50.0-75.0) % Lymph % (Auto) (20.0-40.0) % O'Brien % (Auto) (0.0-10.0) % Eos % (Auto) (0.0-4.0) % Baso % (Auto) (0.0-2.0) % Neut # (Auto) (1.8-7.0) K/uL Lymph # (Auto) (1.0-4.3) K/uL O'Brien # (Auto) (0.0-0.8) K/uL Eos # (Auto) (0.0-0.7) K/uL Baso # (Auto) (0.0-0.2) K/uL Neutrophils % (Manual) (50-75) % Band Neutrophils % (0-2) % Lymphocytes % (Manual) (20-40) % Monocytes % (Manual) (0-10) % Eosinophils % (Manual) (0-4) % Platelet Estimate (NORMAL) Polychromasia Hypochromasia (manual) Poikilocytosis (manual Anisocytosis (manual) Ovalocytes Yoder Cells Schistocytes Puncture Site pCO2 (35-45) mm/Hg pO2 (80-100) mm/Hg HCO3 (21-28) mmol/L ABG pH (7.35-7.45) ABG Total CO2 (22-28) mmol/L ABG O2 Saturation (95-98) % ABG Base Excess (-2.0-3.0) mmol/L ABG Hemoglobin (11.7-17.4) g/dL ABG Carboxyhemoglobin (0.5-1.5) % POC ABG HHb (Measured) (0.0-5.0) % ABG Methemoglobin (0.0-3.0) % Lyle Test A-a O2 Difference mm/Hg Respiratory Index Hgb O2 Saturation (95.0-98.0) % Vent Mode Mechanical Rate FiO2 % Tidal Volume PEEP Crit Value Called To Crit Value Called By Crit Value Read Back Blood Gas Notified Time Sodium 144 (132-148) mmol/L Potassium 4.0 (3.6-5.2) mmol/L Chloride 106 (98-107) mmol/L Carbon Dioxide 29 (22-30) mmol/L Anion Gap 12 (10-20) BUN 29 H (9-20) mg/dL Creatinine 1.5 (0.8-1.5) mg/dL Est GFR ( Amer) 53 Est GFR (Non-Af Amer) 44 POC Glucose (mg/dL) 238 H (65-110) mg/dL Random Glucose 194 H (75-110) mg/dL Calcium 7.7 L (8.6-10.4) mg/dl Phosphorus 1.4 L (2.5-4.5) mg/dL Magnesium 2.0 (1.6-2.3) mg/dL Total Bilirubin 0.4 (0.2-1.3) mg/dL AST 47 (17-59) U/L ALT 36 (21-72) U/L Alkaline Phosphatase 152 H D (38-126) U/L Total Protein 5.2 L (6.3-8.3) g/dL Albumin 2.3 L (3.5-5.0) g/dL Globulin 2.9 (2.2-3.9) gm/dL Albumin/Globulin Ratio 0.8 L (1.0-2.1) Vancomycin Trough 28.3 H (5.0-10.0) ug/mL C. difficile Ag & Toxin (NEGATIVE) Blood Type Antibody Screen 10/12/17 10/12/17 10/11/17 Range/Units 04:25 00:01 17:33 WBC (4.8-10.8) K/uL RBC (4.40-5.90) Mil/uL Hgb (12.0-18.0) g/dL Hct (35.0-51.0) % MCV (80.0-94.0) fL MCH (27.0-31.0) pg MCHC (33.0-37.0) g/dL RDW (11.5-14.5) % Plt Count (130-400) K/uL MPV (7.2-11.7) fL Neut % (Auto) (50.0-75.0) % Lymph % (Auto) (20.0-40.0) % O'Brien % (Auto) (0.0-10.0) % Eos % (Auto) (0.0-4.0) % Baso % (Auto) (0.0-2.0) % Neut # (Auto) (1.8-7.0) K/uL Lymph # (Auto) (1.0-4.3) K/uL O'Brien # (Auto) (0.0-0.8) K/uL Eos # (Auto) (0.0-0.7) K/uL Baso # (Auto) (0.0-0.2) K/uL Neutrophils % (Manual) (50-75) % Band Neutrophils % (0-2) % Lymphocytes % (Manual) (20-40) % Monocytes % (Manual) (0-10) % Eosinophils % (Manual) (0-4) % Platelet Estimate (NORMAL) Polychromasia Hypochromasia (manual) Poikilocytosis (manual Anisocytosis (manual) Ovalocytes Evelyn Cells Schistocytes Puncture Site Rr pCO2 17 L* (35-45) mm/Hg pO2 154 H (80-100) mm/Hg HCO3 30.7 H (21-28) mmol/L ABG pH 7.79 H* (7.35-7.45) ABG Total CO2 26.3 (22-28) mmol/L ABG O2 Saturation 100.1 H (95-98) % ABG Base Excess 7.4 H (-2.0-3.0) mmol/L ABG Hemoglobin 7.8 L (11.7-17.4) g/dL ABG Carboxyhemoglobin 1.9 H (0.5-1.5) % POC ABG HHb (Measured) -0.1 L (0.0-5.0) % ABG Methemoglobin 0.7 (0.0-3.0) % Lyle Test Pos A-a O2 Difference 253.0 mm/Hg Respiratory Index 1.6 Hgb O2 Saturation 97.4 (95.0-98.0) % Vent Mode Prvc Mechanical Rate FiO2 60.0 % Tidal Volume 500 PEEP 5 Crit Value Called To Alea rodríguez/nurse icu Crit Value Called By Ezekiel reynoso/rt Crit Value Read Back Y Blood Gas Notified Time 435 Sodium (132-148) mmol/L Potassium (3.6-5.2) mmol/L Chloride (98-107) mmol/L Carbon Dioxide (22-30) mmol/L Anion Gap (10-20) BUN (9-20) mg/dL Creatinine (0.8-1.5) mg/dL Est GFR ( Amer) Est GFR (Non-Af Amer) POC Glucose (mg/dL) 217 H 206 H (65-110) mg/dL Random Glucose (75-110) mg/dL Calcium (8.6-10.4) mg/dl Phosphorus (2.5-4.5) mg/dL Magnesium (1.6-2.3) mg/dL Total Bilirubin (0.2-1.3) mg/dL AST (17-59) U/L ALT (21-72) U/L Alkaline Phosphatase (38-126) U/L Total Protein (6.3-8.3) g/dL Albumin (3.5-5.0) g/dL Globulin (2.2-3.9) gm/dL Albumin/Globulin Ratio (1.0-2.1) Vancomycin Trough (5.0-10.0) ug/mL C. difficile Ag & Toxin (NEGATIVE) Blood Type Antibody Screen 10/11/17 10/11/17 10/10/17 Range/Units 11:52 11:26 06:00 WBC (4.8-10.8) K/uL RBC (4.40-5.90) Mil/uL Hgb (12.0-18.0) g/dL Hct (35.0-51.0) % MCV (80.0-94.0) fL MCH (27.0-31.0) pg MCHC (33.0-37.0) g/dL RDW (11.5-14.5) % Plt Count (130-400) K/uL MPV (7.2-11.7) fL Neut % (Auto) (50.0-75.0) % Lymph % (Auto) (20.0-40.0) % O'Brien % (Auto) (0.0-10.0) % Eos % (Auto) (0.0-4.0) % Baso % (Auto) (0.0-2.0) % Neut # (Auto) (1.8-7.0) K/uL Lymph # (Auto) (1.0-4.3) K/uL O'Brien # (Auto) (0.0-0.8) K/uL Eos # (Auto) (0.0-0.7) K/uL Baso # (Auto) (0.0-0.2) K/uL Neutrophils % (Manual) (50-75) % Band Neutrophils % (0-2) % Lymphocytes % (Manual) (20-40) % Monocytes % (Manual) (0-10) % Eosinophils % (Manual) (0-4) % Platelet Estimate (NORMAL) Polychromasia Hypochromasia (manual) Poikilocytosis (manual Anisocytosis (manual) Ovalocytes Yoder Cells Schistocytes Puncture Site pCO2 (35-45) mm/Hg pO2 (80-100) mm/Hg HCO3 (21-28) mmol/L ABG pH (7.35-7.45) ABG Total CO2 (22-28) mmol/L ABG O2 Saturation (95-98) % ABG Base Excess (-2.0-3.0) mmol/L ABG Hemoglobin (11.7-17.4) g/dL ABG Carboxyhemoglobin (0.5-1.5) % POC ABG HHb (Measured) (0.0-5.0) % ABG Methemoglobin (0.0-3.0) % Lyle Test A-a O2 Difference mm/Hg Respiratory Index Hgb O2 Saturation (95.0-98.0) % Vent Mode Mechanical Rate FiO2 % Tidal Volume PEEP Crit Value Called To Crit Value Called By Crit Value Read Back Blood Gas Notified Time Sodium (132-148) mmol/L Potassium (3.6-5.2) mmol/L Chloride (98-107) mmol/L Carbon Dioxide (22-30) mmol/L Anion Gap (10-20) BUN (9-20) mg/dL Creatinine (0.8-1.5) mg/dL Est GFR ( Amer) Est GFR (Non-Af Amer) POC Glucose (mg/dL) 124 H (65-110) mg/dL Random Glucose (75-110) mg/dL Calcium (8.6-10.4) mg/dl Phosphorus (2.5-4.5) mg/dL Magnesium (1.6-2.3) mg/dL Total Bilirubin (0.2-1.3) mg/dL AST (17-59) U/L ALT (21-72) U/L Alkaline Phosphatase (38-126) U/L Total Protein (6.3-8.3) g/dL Albumin (3.5-5.0) g/dL Globulin (2.2-3.9) gm/dL Albumin/Globulin Ratio (1.0-2.1) Vancomycin Trough (5.0-10.0) ug/mL C. difficile Ag & Toxin Negative (NEGATIVE) Blood Type A POSITIVE Antibody Screen Negative Laboratory Results - last 24 hr 10/10/17 10/11/17 10/11/17 06:00 11:26 11:52 WBC RBC Hgb Hct MCV MCH MCHC RDW Plt Count MPV Neut % (Auto) Lymph % (Auto) O'Brien % (Auto) Eos % (Auto) Baso % (Auto) Neut # (Auto) Lymph # (Auto) O'Brien # (Auto) Eos # (Auto) Baso # (Auto) Neutrophils % (Manual) Band Neutrophils % Lymphocytes % (Manual) Monocytes % (Manual) Eosinophils % (Manual) Platelet Estimate Polychromasia Hypochromasia (manual) Poikilocytosis (manual Anisocytosis (manual) Ovalocytes Yoder Cells Schistocytes Puncture Site pCO2 pO2 HCO3 ABG pH ABG Total CO2 ABG O2 Saturation ABG Base Excess ABG Hemoglobin ABG Carboxyhemoglobin POC ABG HHb (Measured) ABG Methemoglobin Lyle Test A-a O2 Difference Respiratory Index Hgb O2 Saturation Vent Mode Mechanical Rate FiO2 Tidal Volume PEEP Crit Value Called To Crit Value Called By Crit Value Read Back Blood Gas Notified Time Sodium Potassium Chloride Carbon Dioxide Anion Gap BUN Creatinine Est GFR ( Amer) Est GFR (Non-Af Amer) POC Glucose (mg/dL) 124 H Random Glucose Calcium Phosphorus Magnesium Total Bilirubin AST ALT Alkaline Phosphatase Total Protein Albumin Globulin Albumin/Globulin Ratio Vancomycin Trough C. difficile Ag & Toxin Negative Blood Type A POSITIVE Antibody Screen Negative 10/11/17 10/12/17 10/12/17 17:33 00:01 04:25 WBC RBC Hgb Hct MCV MCH MCHC RDW Plt Count MPV Neut % (Auto) Lymph % (Auto) O'Brien % (Auto) Eos % (Auto) Baso % (Auto) Neut # (Auto) Lymph # (Auto) O'Brien # (Auto) Eos # (Auto) Baso # (Auto) Neutrophils % (Manual) Band Neutrophils % Lymphocytes % (Manual) Monocytes % (Manual) Eosinophils % (Manual) Platelet Estimate Polychromasia Hypochromasia (manual) Poikilocytosis (manual Anisocytosis (manual) Ovalocytes Yoder Cells Schistocytes Puncture Site Rr pCO2 17 L* pO2 154 H HCO3 30.7 H ABG pH 7.79 H* ABG Total CO2 26.3 ABG O2 Saturation 100.1 H ABG Base Excess 7.4 H ABG Hemoglobin 7.8 L ABG Carboxyhemoglobin 1.9 H POC ABG HHb (Measured) -0.1 L ABG Methemoglobin 0.7 Lyle Test Pos A-a O2 Difference 253.0 Respiratory Index 1.6 Hgb O2 Saturation 97.4 Vent Mode Prvc Mechanical Rate FiO2 60.0 Tidal Volume 500 PEEP 5 Crit Value Called To Alea rodríguez/nurse icu Crit Value Called By Ezekiel reynoso/rt Crit Value Read Back Y Blood Gas Notified Time 435 Sodium Potassium Chloride Carbon Dioxide Anion Gap BUN Creatinine Est GFR ( Amer) Est GFR (Non-Af Amer) POC Glucose (mg/dL) 206 H 217 H Random Glucose Calcium Phosphorus Magnesium Total Bilirubin AST ALT Alkaline Phosphatase Total Protein Albumin Globulin Albumin/Globulin Ratio Vancomycin Trough C. difficile Ag & Toxin Blood Type Antibody Screen 10/12/17 10/12/17 10/12/17 06:05 06:21 06:21 WBC RBC Hgb Hct MCV MCH MCHC RDW Plt Count MPV Neut % (Auto) Lymph % (Auto) O'Brien % (Auto) Eos % (Auto) Baso % (Auto) Neut # (Auto) Lymph # (Auto) O'Brien # (Auto) Eos # (Auto) Baso # (Auto) Neutrophils % (Manual) Band Neutrophils % Lymphocytes % (Manual) Monocytes % (Manual) Eosinophils % (Manual) Platelet Estimate Polychromasia Hypochromasia (manual) Poikilocytosis (manual Anisocytosis (manual) Ovalocytes Evelyn Cells Schistocytes Puncture Site pCO2 pO2 HCO3 ABG pH ABG Total CO2 ABG O2 Saturation ABG Base Excess ABG Hemoglobin ABG Carboxyhemoglobin POC ABG HHb (Measured) ABG Methemoglobin Lyle Test A-a O2 Difference Respiratory Index Hgb O2 Saturation Vent Mode Mechanical Rate FiO2 Tidal Volume PEEP Crit Value Called To Crit Value Called By Crit Value Read Back Blood Gas Notified Time Sodium 144 Potassium 4.0 Chloride 106 Carbon Dioxide 29 Anion Gap 12 BUN 29 H Creatinine 1.5 Est GFR ( Amer) 53 Est GFR (Non-Af Amer) 44 POC Glucose (mg/dL) 238 H Random Glucose 194 H Calcium 7.7 L Phosphorus 1.4 L Magnesium 2.0 Total Bilirubin 0.4 AST 47 ALT 36 Alkaline Phosphatase 152 H D Total Protein 5.2 L Albumin 2.3 L Globulin 2.9 Albumin/Globulin Ratio 0.8 L Vancomycin Trough 28.3 H C. difficile Ag & Toxin Blood Type Antibody Screen 10/12/17 10/12/17 10/12/17 06:24 07:20 11:16 WBC 11.2 H RBC 2.64 L Hgb 8.3 L Hct 24.1 L MCV 91.3 MCH 31.5 H MCHC 34.5 RDW 15.4 H Plt Count 194 MPV 7.9 Neut % (Auto) 85.3 H Lymph % (Auto) 4.7 L O'Brien % (Auto) 7.6 Eos % (Auto) 2.0 Baso % (Auto) 0.4 Neut # (Auto) 9.6 H Lymph # (Auto) 0.5 L O'Brien # (Auto) 0.9 H Eos # (Auto) 0.2 Baso # (Auto) 0.0 Neutrophils % (Manual) 82 H Band Neutrophils % 1 Lymphocytes % (Manual) 7 L Monocytes % (Manual) 8 Eosinophils % (Manual) 2 Platelet Estimate Normal Polychromasia Slight Hypochromasia (manual) Slight Poikilocytosis (manual Slight Anisocytosis (manual) Slight Ovalocytes Slight Evelyn Cells Slight Schistocytes Slight Puncture Site Lf pCO2 42 pO2 66 L HCO3 27.9 ABG pH 7.44 ABG Total CO2 29.8 H ABG O2 Saturation 97.0 ABG Base Excess 3.9 H ABG Hemoglobin 10.0 L ABG Carboxyhemoglobin 1.8 H POC ABG HHb (Measured) 2.9 ABG Methemoglobin 1.0 Lyle Test Na A-a O2 Difference 309.0 Respiratory Index 4.7 Hgb O2 Saturation 94.3 L Vent Mode Mechanical Rate 16 FiO2 60.0 Tidal Volume 500 PEEP 5 Crit Value Called To Dr caba Crit Value Called By Betito marquez geographic information system surveyor Crit Value Read Back Y Blood Gas Notified Time 740 Sodium Potassium Chloride Carbon Dioxide Anion Gap BUN Creatinine Est GFR ( Amer) Est GFR (Non-Af Amer) POC Glucose (mg/dL) 168 H Random Glucose Calcium Phosphorus Magnesium Total Bilirubin AST ALT Alkaline Phosphatase Total Protein Albumin Globulin Albumin/Globulin Ratio Vancomycin Trough C. difficile Ag & Toxin Blood Type Antibody Screen Fingerstick Blood Sugar Results: 238 Review of Systems - Review of Systems Systems not reviewed;Unavailable: Intubated Critical Care Progress Note - Ventilator Checklist Head of Bed 30 Degrees: Yes Daily Sedation Vacation: Yes Daily Assessment of Readiness to Wean: Yes PUD Prophalyxis: Yes DVT Prophylaxis: Yes - Vent Settings MODE:: CPAP - Nutrition Nutrition: Nutrition Category Date Time Status NPO Diet [DIET] Diets 10/10/17 Dinner Active Assessment/Plan (1) Respiratory arrest Current Visit: Yes Status: Acute Comment: Tolerating CPAP Continue weaning Continue IV antibiotics Will need thoracentesis Continue present care including feeding (2) Pneumonia Current Visit: No Status: Acute (3) Dementia Current Visit: No Status: Chronic
--- NOTE | 2017-10-12 14:14 | CP.PCM.PN ---
Subjective - Date & Time of Evaluation Date of Evaluation: 10/12/17 Time of Evaluation: 10:00 - Subjective Subjective: 87 year old male with PMHx CAD, pacemaker, DM2, CHF, HLD, dementia who [facility]. Tolerating CPAP No response to vocal commands Afebrile Tolerating feeding Objective - Vital Signs/Intake and Output Vital Signs (last 24 hours): Temp Pulse Resp BP Pulse Ox 99.3 F 77 16 136/67 99 10/12/17 11:00 10/12/17 13:00 10/12/17 07:00 10/12/17 12:13 10/12/17 13:00 Intake and Output: 10/12/17 10/12/17 06:59 18:59 Intake Total 1400 390 Output Total 1135 280 Balance 265 110 - Medications Medications: Current Medications Enoxaparin Sodium (Lovenox) 40 mg SC DAILY [facility] Last Admin: 10/12/17 10:59 Dose: 40 mg Cefepime HCl (Maxipime Iv 1 Gm Premix) 1 gm in 50 mls @ 100 mls/hr IVPB Q12H JEFFERY PRN Reason: Protocol Last Admin: 10/12/17 11:00 Dose: 100 mls/hr Azithromycin 500 mg/ Sodium (Chloride) 250 mls @ 250 mls/hr IVPB DAILY@1600 JEFFERY PRN Reason: Protocol Last Admin: 10/11/17 17:14 Dose: 250 mls/hr Vancomycin/Sodium Chloride (Vancomycin 1 Gm/Ns 200 Ml) 1 gm in 200 mls @ 133 mls/hr IVPB Q12H JEFFERY PRN Reason: Protocol Stop: 10/15/17 18:01 Last Admin: 10/12/17 06:12 Dose: 133 mls/hr Insulin Aspart (Novolog) 0 unit SC Q6 JEFFERY PRN Reason: Protocol Last Admin: 10/12/17 11:32 Dose: 2 unit Pantoprazole Sodium (Protonix Inj) 40 mg IVP DAILY [facility] Last Admin: 10/12/17 10:59 Dose: 40 mg Pneumococcal Polyvalent Vaccine (Pneumovax 23 Vaccine) 0.5 ml IM .ONCE ONE Stop: 10/13/17 10:01 Potassium Phos/Sodium Phos (Neutra-Phos) 1 pkt PO BID [facility] Stop: 10/14/17 11:31 Last Admin: 10/12/17 11:32 Dose: 1 pkt - Labs Labs: 10/12/17 06:24 10/12/17 06:21 PT 12.6 SECONDS (9.7-12.2) H 10/10/17 12:02 INR 1.1 10/10/17 12:02 APTT 18 SECONDS (21-34) L 10/10/17 12:02 - Constitutional Appears: Non-toxic, Chronically Ill - Head Exam Head Exam: NORMOCEPHALIC - Eye Exam Eye Exam: PERRL - ENT Exam ENT Exam: Mucous Membranes Dry - Neck Exam Neck Exam: absent: Lymphadenopathy - Respiratory Exam Respiratory Exam: Decreased Breath Sounds - Cardiovascular Exam Cardiovascular Exam: REGULAR RHYTHM - GI/Abdominal Exam GI & Abdominal Exam: Distended - Rectal Exam Rectal Exam: Deferred - Exam Exam: NORMAL INSPECTION - Extremities Exam Extremities Exam: absent: Pedal Edema - Back Exam Back Exam: absent: CVA tenderness (L), CVA tenderness (R) - Neurological Exam Neurological Exam: Altered - Psychiatric Exam Psychiatric exam: Depressed - Skin Skin Exam: Dry Assessment and Plan (1) Respiratory arrest Status: Acute (2) Aspiration pneumonia Status: Acute (3) Bronchitis Status: Acute (4) CAD (coronary artery disease) Status: Acute (5) Diabetes Status: Acute - Assessment and Plan (Free Text) Assessment: cultures neg thus far cont empiric rx
[2017-10-12] MEDS ORDERED: Sodium Chloride 0.9% 1,000 ML IV ONE (16:00)
--- NOTE | 2017-10-12 16:37 | CP.PCM.PN ---
Subjective - Date & Time of Evaluation Date of Evaluation: 10/12/17 Time of Evaluation: 11:20 - Subjective Subjective: clinically same Objective - Vital Signs/Intake and Output Vital Signs (last 24 hours): Temp Pulse Resp BP Pulse Ox 99 F 110 H 16 138/63 99 10/12/17 15:00 10/12/17 16:13 10/12/17 07:00 10/12/17 16:13 10/12/17 16:13 Intake and Output: 10/12/17 10/12/17 06:59 18:59 Intake Total 1400 510 Output Total 1135 325 Balance 265 185 - Medications Medications: Current Medications Enoxaparin Sodium (Lovenox) 40 mg SC DAILY [facility] Last Admin: 10/12/17 10:59 Dose: 40 mg Cefepime HCl (Maxipime Iv 1 Gm Premix) 1 gm in 50 mls @ 100 mls/hr IVPB Q12H JEFFERY PRN Reason: Protocol Last Admin: 10/12/17 11:00 Dose: 100 mls/hr Azithromycin 500 mg/ Sodium (Chloride) 250 mls @ 250 mls/hr IVPB DAILY@1600 JEFFERY PRN Reason: Protocol Last Admin: 10/11/17 17:14 Dose: 250 mls/hr Vancomycin HCl 1 gm/ Sodium (Chloride) 200 mls @ 166.7 mls/hr IVPB Q24H JEFFERY PRN Reason: Protocol Insulin Aspart (Novolog) 0 unit SC Q6 JEFFERY PRN Reason: Protocol Last Admin: 10/12/17 11:32 Dose: 2 unit Pantoprazole Sodium (Protonix Inj) 40 mg IVP DAILY [facility] Last Admin: 10/12/17 10:59 Dose: 40 mg Pneumococcal Polyvalent Vaccine (Pneumovax 23 Vaccine) 0.5 ml IM .ONCE ONE Stop: 10/13/17 10:01 Potassium Phos/Sodium Phos (Neutra-Phos) 1 pkt PO BID JEFFERY Stop: 10/14/17 11:31 Last Admin: 10/12/17 11:32 Dose: 1 pkt - Labs Labs: 10/12/17 06:24 10/12/17 06:21 PT 12.6 SECONDS (9.7-12.2) H 10/10/17 12:02 INR 1.1 10/10/17 12:02 APTT 18 SECONDS (21-34) L 10/10/17 12:02 - Constitutional Appears: Well - Head Exam Head Exam: ATRAUMATIC, NORMAL INSPECTION, NORMOCEPHALIC - Eye Exam Eye Exam: EOMI, Normal appearance, PERRL Pupil Exam: NORMAL ACCOMODATION, PERRL - ENT Exam ENT Exam: Mucous Membranes Moist, Normal Exam - Neck Exam Neck Exam: Full ROM, Normal Inspection. absent: Lymphadenopathy - Respiratory Exam Respiratory Exam: Decreased Breath Sounds - Cardiovascular Exam Cardiovascular Exam: REGULAR RHYTHM, +S1, +S2 - GI/Abdominal Exam GI & Abdominal Exam: Soft, Diminished Bowel Sounds - Rectal Exam Rectal Exam: Deferred
[2017-10-12] MEDS: Vancomycin 1 GM in Sodium Chloride 0.9% 200 ML IVPB SCH (17:38)
[2017-10-12] MEDS: Azithromycin 500 MG in Sodium Chloride 0.9% 250 ML IVPB SCH (17:39)
[2017-10-13 04:23] LABS: ARTERIAL BLOOD GAS HEMOGLOBIN 7.5 g/dL (11.7-17.4); ARTERIAL BLOOD GAS O2 SAT 100.4 % (95-98); ARTERIAL BLOOD GAS PCO2 21 mm/Hg (35-45); ARTERIAL BLOOD GAS PH 7.67 (7.35-7.45); ARTERIAL BLOOD GAS PO2 179 mm/Hg (80-100); ARTERIAL BLOOD GAS TCO2 24.8 mmol/L (22-28)
[2017-10-13 06:08] LABS: BASO % 0.3 % (0.0-2.0); EOS # 0.3 K/uL (0.0-0.7); EOS % 3.5 % (0.0-4.0); HEMOGLOBIN 8.1 g/dL (12.0-18.0); LYMPH # 0.4 K/uL (1.0-4.3); LYMPH % 4.5 % (20.0-40.0); MEAN CELL VOLUME 93.9 fL (80.0-94.0); MEAN CORPUSCULAR HEMOGLOBIN 32.9 pg (27.0-31.0); MEAN PLATELET VOLUME 8.7 fL (7.2-11.7); MONO # 0.8 K/uL (0.0-0.8); MONO % 8.5 % (0.0-10.0); NEUT # 8.1 K/uL (1.8-7.0); NEUT % 83.2 % (50.0-75.0); NRBC % 0.1 % (0.0-2.0); PLATELET COUNT 134 K/uL (130-400); RBC 2.46 Mil/uL (4.40-5.90); RED CELL DISTRIBUTION WIDTH 15.7 % (11.5-14.5); WHITE BLOOD COUNT 9.8 K/uL (4.8-10.8)
[2017-10-13] MEDS: (Novolog) Insulin Aspart, Recombinant 100 u/ml 10 ml vial SC SCH ×3 (06:24→17:56)
[2017-10-13 06:52] LABS: ALB/GLOB RATIO 0.7 (1.0-2.1); ALBUMIN 2.2 g/dL (3.5-5.0); ALT/SGPT 55 U/L (21-72); AST/SGOT 188 U/L (17-59); BLOOD UREA NITROGEN 27 mg/dL (9-20); GFR AFRICAN-AMERICAN > 60; GFR NON-AFRICAN AMERICAN 52
--- NOTE | 2017-10-13 08:26 | RAD ---
PROCEDURE: CHEST RADIOGRAPH, 1 VIEW HISTORY: intubated patient COMPARISON: 10/12/2017 FINDINGS: LUNGS: Clear. PLEURA: Bilateral pleural effusion. No pneumothorax. CARDIOVASCULAR: And tracheal tube unchanged. OSSEOUS STRUCTURES: Heart size. No significant chest change. VISUALIZED UPPER ABDOMEN: Normal. OTHER FINDINGS: None. IMPRESSION: Bilateral pleural effusion. No acute infiltrate. ET tube unchanged.
[2017-10-13 08:36] LABS: EOSINOPHIL 3 % (0-4); LYMPHOCYTE 6 % (20-40); MONOCYTE 7 % (0-10); NEUTROPHIL 84 % (50-75); NUCLEATED RED BLOOD CELL 1 % (0-0); PLATELET ESTIMATE NORMAL (NORMAL); TOTAL CELLS COUNTED 100
[2017-10-13 08:37] LABS: ANISOCYTOSIS SLIGHT; HYPOCHROMIC SLIGHT; POIKILOCYTOSIS SLIGHT
[2017-10-13 08:38] LABS: TARGET CELLS SLIGHT
[2017-10-13] MEDS: Enoxaparin 40 mg Syringe SC SCH (09:36)
[2017-10-13] MEDS ORDERED: Pneumococcal 23-Valent Vaccine IM ONE (10:00)
[2017-10-13] MEDS: Potassium & Sodium Phosphate PO SCH ×2 (10:00→17:57)
[2017-10-13] MEDS: Cefepime IV 1 gm in Dextrose 1 GM/50 ML BAG IVPB SCH (12:00)
--- NOTE | 2017-10-13 12:48 | CP.PCM.PN ---
Subjective - Date & Time of Evaluation Date of Evaluation: 10/13/17 Time of Evaluation: 08:00 - Subjective Subjective: cultures neg thus far cont rx as per Dr Ruslan Martínez Objective - Vital Signs/Intake and Output Vital Signs (last 24 hours): Temp Pulse Resp BP Pulse Ox 98 F 69 17 120/45 L 94 L 10/13/17 11:00 10/13/17 12:13 10/13/17 12:13 10/13/17 12:13 10/13/17 12:13 Intake and Output: 10/13/17 10/13/17 06:59 18:59 Intake Total 390 150 Output Total 370 220 Balance 20 -70 - Medications Medications: Current Medications Enoxaparin Sodium (Lovenox) 40 mg SC DAILY [facility] Last Admin: 10/13/17 09:36 Dose: 40 mg Cefepime HCl (Maxipime Iv 1 Gm Premix) 1 gm in 50 mls @ 100 mls/hr IVPB Q12H JEFFERY PRN Reason: Protocol Last Admin: 10/13/17 12:00 Dose: 100 mls/hr Azithromycin 500 mg/ Sodium (Chloride) 250 mls @ 250 mls/hr IVPB DAILY@1600 JEFFERY PRN Reason: Protocol Last Admin: 10/12/17 17:39 Dose: 250 mls/hr Vancomycin HCl 1 gm/ Sodium (Chloride) 200 mls @ 166.7 mls/hr IVPB Q24H JEFFERY PRN Reason: Protocol Last Admin: 10/12/17 17:38 Dose: Not Given Insulin Aspart (Novolog) 0 unit SC Q6 JEFFERY PRN Reason: Protocol Last Admin: 10/13/17 06:24 Dose: 2 unit Pantoprazole Sodium (Protonix Inj) 40 mg IVP DAILY [facility] Last Admin: 10/13/17 10:00 Dose: 40 mg Potassium Phos/Sodium Phos (Neutra-Phos) 1 pkt PO BID JEFFERY Stop: 10/14/17 11:31 Last Admin: 10/13/17 10:00 Dose: 1 pkt - Labs Labs: 10/13/17 05:59 10/13/17 05:59 PT 12.6 SECONDS (9.7-12.2) H 10/10/17 12:02 INR 1.1 10/10/17 12:02 APTT 18 SECONDS (21-34) L 10/10/17 12:02 Assessment and Plan (1) Respiratory arrest Status: Acute (2) Aspiration pneumonia Status: Acute (3) Bronchitis Status: Acute (4) CAD (coronary artery disease) Status: Acute (5) Diabetes Status: Acute
--- NOTE | 2017-10-13 13:04 | CP.PCM.CON ---
History of Present Illness - History of Present Illness History of Present Illness: Palliative consult requested by Doctor Tyree for goals of care discussion Patient is a 87 yo male admitted from [place] where he was found unresponsive in respiratory distress. Patient was intubated on the field.Per family, just the day prior to it, patient was able to talk to them. Patient had GT placed 3 days prior to discharge to [facility]. Family reported that patient had a fall 5 years ago while he was in [place] and his daughter brought him here to stay with her. Patient has been non ambulatory since the fall , for 5 years. His daughter Adeola is his director of primary care at home. CT head upon admission was significant for old, chronic hydrocephalus but no subdural hemorhages were seen. PMH: CAD, CHF, dementia, PPM, DM Soc. Hx: , still in [place], lives with daughter here in [facility] Hx: Denies significant Medical Hx Review of Systems - Review of Systems All systems: reviewed and no additional remarkable complaints except Review of Systems: patient intubated, ROS obtained from nursing. Per nursing, CPAP trals are initiated Past Patient History - Infectious Disease Hx of Infectious Diseases: None - Past Medical History & Family History Past Medical History?: Yes - Past Social History Smoking Status: Former Smoker - CARDIAC Hx Congestive Heart Failure: Yes Hx Hypercholesterolemia: Yes Hx Hypertension: Yes Hx Pacemaker: Yes - PULMONARY Hx Respiratory Disorders: No - NEUROLOGICAL Hx Dementia: Yes - HEENT Hx HEENT Problems: Yes - RENAL Hx Chronic Kidney Disease: No - ENDOCRINE/METABOLIC Hx Endocrine Disorders: Yes Hx Diabetes Mellitus Type 2: Yes - HEMATOLOGICAL/ONCOLOGICAL Hx Human Immunodeficiency Virus (HIV): No - INTEGUMENTARY Hx Dermatological Problems: No - MUSCULOSKELETAL/RHEUMATOLOGICAL Hx Falls: Yes - GASTROINTESTINAL Hx Gastrointestinal Disorders: Yes Hx Constipation: Yes Other/Comment: PEG tube in place - GENITOURINARY/GYNECOLOGICAL Hx Genitourinary Disorders: No - PSYCHIATRIC Hx Depression: Yes Hx Substance Use: No - SURGICAL HISTORY Hx Surgeries: Yes Other/Comment: Pacemaker insertion - ANESTHESIA Hx Anesthesia: Yes Hx Anesthesia Reactions: No Hx Malignant Hyperthermia: No Meds Allergies/Adverse Reactions: Allergies Allergy/AdvReac Type Severity Reaction Status Date / Time No Known Allergies Allergy Verified 10/10/17 11:15 - Medications Medications: Current Medications Enoxaparin Sodium (Lovenox) 40 mg SC DAILY JEFFERY Last Admin: 10/13/17 09:36 Dose: 40 mg Cefepime HCl (Maxipime Iv 1 Gm Premix) 1 gm in 50 mls @ 100 mls/hr IVPB Q12H JEFFERY PRN Reason: Protocol Last Admin: 10/13/17 12:00 Dose: 100 mls/hr Azithromycin 500 mg/ Sodium (Chloride) 250 mls @ 250 mls/hr IVPB DAILY@1600 JEFFERY PRN Reason: Protocol Last Admin: 10/12/17 17:39 Dose: 250 mls/hr Vancomycin HCl 1 gm/ Sodium (Chloride) 200 mls @ 166.7 mls/hr IVPB Q24H JFEFERY PRN Reason: Protocol Last Admin: 10/12/17 17:38 Dose: Not Given Insulin Aspart (Novolog) 0 unit SC Q6 JEFFERY PRN Reason: Protocol Last Admin: 10/13/17 06:24 Dose: 2 unit Pantoprazole Sodium (Protonix Inj) 40 mg IVP DAILY [facility] Last Admin: 10/13/17 10:00 Dose: 40 mg Potassium Phos/Sodium Phos (Neutra-Phos) 1 pkt PO BID [facility] Stop: 10/14/17 11:31 Last Admin: 10/13/17 10:00 Dose: 1 pkt Physical Exam - Constitutional Appears: In Acute Distress, Chronically Ill - Head Exam Head Exam: ATRAUMATIC, NORMAL INSPECTION, NORMOCEPHALIC - Eye Exam Eye Exam: EOMI, Normal appearance, PERRL Pupil Exam: NORMAL ACCOMODATION, PERRL - ENT Exam Additional comments: ETT - Neck Exam Neck exam: Positive for: Normal Inspection - Respiratory Exam Additional comments: On MV support - Cardiovascular Exam Cardiovascular Exam: Tachycardia, Irregular Rhythm - GI/Abdominal Exam Additional comments: PEG - Rectal Exam Rectal Exam: Deferred - Exam Exam: Scrotal Swelling - Extremities Exam Additional comments: multiple patches of sebohreic skin to both legs - Back Exam Back exam: NORMAL INSPECTION - Neurological Exam Neurological exam: Motor Sensory Deficit - Psychiatric Exam Psychiatric exam: Flat Affect - Skin Skin Exam: Pallor Results - Vital Signs Recent Vital Signs: Last Vital Signs Temp 98 F 10/13/17 11:00 Pulse 69 10/13/17 12:13 Resp 17 10/13/17 12:13 BP 120/45 L 10/13/17 12:13 Pulse Ox 94 L 10/13/17 12:13 - Labs Result Diagrams: 10/13/17 05:59 10/13/17 05:59 Labs: Laboratory Results - last 24 hr 10/12/17 10/12/17 10/12/17 10:17 17:50 23:26 WBC RBC Hgb Hct MCV MCH MCHC RDW Plt Count MPV Neut % (Auto) Lymph % (Auto) [place] % (Auto) Eos % (Auto) Baso % (Auto) Neut # (Auto) Lymph # (Auto) [place] # (Auto) Eos # (Auto) Baso # (Auto) Neutrophils % (Manual) Lymphocytes % (Manual) Monocytes % (Manual) Eosinophils % (Manual) Nucleated RBC % Platelet Estimate Hypochromasia (manual) Poikilocytosis (manual Anisocytosis (manual) Target Cells Puncture Site pCO2 pO2 HCO3 ABG pH ABG Total CO2 ABG O2 Saturation ABG Base Excess ABG Hemoglobin ABG Carboxyhemoglobin POC ABG HHb (Measured) ABG Methemoglobin Lyle Test A-a O2 Difference Respiratory Index Hgb O2 Saturation Vent Mode Mechanical Rate FiO2 Tidal Volume PEEP Crit Value Called To Crit Value Called By Crit Value Read Back Blood Gas Notified Time Sodium Potassium Chloride Carbon Dioxide Anion Gap BUN Creatinine Est GFR ( Amer) Est GFR (Non-Af Amer) POC Glucose (mg/dL) 172 H 95 Random Glucose Calcium Phosphorus Magnesium Total Bilirubin AST ALT Alkaline Phosphatase Total Protein Albumin Globulin Albumin/Globulin Ratio Vancomycin Trough C. difficile Ag & Toxin Negative 10/13/17 10/13/17 10/13/17 00:52 04:15 05:27 WBC RBC Hgb Hct MCV MCH MCHC RDW Plt Count MPV Neut % (Auto) Lymph % (Auto) [place] % (Auto) Eos % (Auto) Baso % (Auto) Neut # (Auto) Lymph # (Auto) [place] # (Auto) Eos # (Auto) Baso # (Auto) Neutrophils % (Manual) Lymphocytes % (Manual) Monocytes % (Manual) Eosinophils % (Manual) Nucleated RBC % Platelet Estimate Hypochromasia (manual) Poikilocytosis (manual Anisocytosis (manual) Target Cells Puncture Site Rb pCO2 21 L pO2 179 H HCO3 28.0 ABG pH 7.67 H* ABG Total CO2 24.8 ABG O2 Saturation 100.4 H ABG Base Excess 3.9 H ABG Hemoglobin 7.5 L ABG Carboxyhemoglobin 2.1 H POC ABG HHb (Measured) -0.4 L ABG Methemoglobin 0.9 Lyle Test Na A-a O2 Difference 223.0 Respiratory Index 1.2 Hgb O2 Saturation 97.5 Vent Mode Prvc Mechanical Rate 16 FiO2 60.0 Tidal Volume 500 PEEP 5 Crit Value Called To Alea montes/rn Crit Value Called By Ezekiel reynoso/rt Crit Value Read Back Y Blood Gas Notified Time 425 Sodium Potassium Chloride Carbon Dioxide Anion Gap BUN Creatinine Est GFR ( Amer) Est GFR (Non-Af Amer) POC Glucose (mg/dL) 111 H 157 H Random Glucose Calcium Phosphorus Magnesium Total Bilirubin AST ALT Alkaline Phosphatase Total Protein Albumin Globulin Albumin/Globulin Ratio Vancomycin Trough C. difficile Ag & Toxin 10/13/17 10/13/17 10/13/17 05:59 05:59 05:59 WBC 9.8 RBC 2.46 L Hgb 8.1 L Hct 23.1 L MCV 93.9 D MCH 32.9 H MCHC 35.0 RDW 15.7 H Plt Count 134 MPV 8.7 Neut % (Auto) 83.2 H Lymph % (Auto) 4.5 L [place] % (Auto) 8.5 Eos % (Auto) 3.5 Baso % (Auto) 0.3 Neut # (Auto) 8.1 H Lymph # (Auto) 0.4 L [place] # (Auto) 0.8 Eos # (Auto) 0.3 Baso # (Auto) 0.0 Neutrophils % (Manual) 84 H Lymphocytes % (Manual) 6 L Monocytes % (Manual) 7 Eosinophils % (Manual) 3 Nucleated RBC % 1 H Platelet Estimate Normal Hypochromasia (manual) Slight Poikilocytosis (manual Slight Anisocytosis (manual) Slight Target Cells Slight Puncture Site pCO2 pO2 HCO3 ABG pH ABG Total CO2 ABG O2 Saturation ABG Base Excess ABG Hemoglobin ABG Carboxyhemoglobin POC ABG HHb (Measured) ABG Methemoglobin Lyle Test A-a O2 Difference Respiratory Index Hgb O2 Saturation Vent Mode Mechanical Rate FiO2 Tidal Volume PEEP Crit Value Called To Crit Value Called By Crit Value Read Back Blood Gas Notified Time Sodium 144 Potassium 5.2 Chloride 111 H Carbon Dioxide 24 Anion Gap 14 BUN 27 H Creatinine 1.3 Est GFR ( Amer) > 60 Est GFR (Non-Af Amer) 52 POC Glucose (mg/dL) Random Glucose 134 H Calcium 7.0 L Phosphorus 2.1 L Magnesium 2.0 Total Bilirubin 0.8 AST 188 H D ALT 55 Alkaline Phosphatase 154 H Total Protein 5.1 L Albumin 2.2 L Globulin 2.9 Albumin/Globulin Ratio 0.7 L Vancomycin Trough 28.7 H C. difficile Ag & Toxin 10/13/17 11:39 WBC RBC Hgb Hct MCV MCH MCHC RDW Plt Count MPV Neut % (Auto) Lymph % (Auto) [place] % (Auto) Eos % (Auto) Baso % (Auto) Neut # (Auto) Lymph # (Auto) [place] # (Auto) Eos # (Auto) Baso # (Auto) Neutrophils % (Manual) Lymphocytes % (Manual) Monocytes % (Manual) Eosinophils % (Manual) Nucleated RBC % Platelet Estimate Hypochromasia (manual) Poikilocytosis (manual Anisocytosis (manual) Target Cells Puncture Site pCO2 pO2 HCO3 ABG pH ABG Total CO2 ABG O2 Saturation ABG Base Excess ABG Hemoglobin ABG Carboxyhemoglobin POC ABG HHb (Measured) ABG Methemoglobin Lyle Test A-a O2 Difference Respiratory Index Hgb O2 Saturation Vent Mode Mechanical Rate FiO2 Tidal Volume PEEP Crit Value Called To Crit Value Called By Crit Value Read Back Blood Gas Notified Time Sodium Potassium Chloride Carbon Dioxide Anion Gap BUN Creatinine Est GFR ( Amer) Est GFR (Non-Af Amer) POC Glucose (mg/dL) 152 H Random Glucose Calcium Phosphorus Magnesium Total Bilirubin AST ALT Alkaline Phosphatase Total Protein Albumin Globulin Albumin/Globulin Ratio Vancomycin Trough C. difficile Ag & Toxin Assessment & Plan - Assessment and Plan (Free Text) Assessment: Palliative consult Full Code, there is no Advance directive on chart, PPS 10% I reviewed medical records, all diagnostic studies, examined patient in the bed and discussed goals of care with his daughter Adeola. Patient is intubated, not sedated, on MV support. Patient does not fallow verbal commends, reacts to tactile, painful stimuli by grimacing the face. Eyes closed. There are occasional movements of upper extremities with no purpose. Scrotum is swollen and skin under it is reddened and excoriated from the moisture . There are multiple seborrhea lesions to both LEs, some of them are pealed of leaving purplish tay. Both feet are discolored, PP present. Goals of acre discussed with daughter Adeola at bed side and her daughter who was translating. I reviewed patient's clinical condition and gave rational for MV assistance. We discussed fluid retention throughout the body and possibility of Thoracentesis as suggested by Doctor Jerald, to easy breathing. Daughter agreed. Daughter questioned Doctor Kenneth about possibility of trach formation. I elaborated on it emphasizing the quality of life over longevity. We agreed to take one day at the time and monitor progress. The priority goal at present was enabling patent to breath on his own. Family agreed. During this meting I sensed daughter's intention o ask for all possible measures , including aggressive measures to support her father's life. This was not good time to discuss Code status. We agreed to meet again tomorrow and fallow on patient;s progress. Impression * Chronically ill man with acute onset of respiratory distress * Full life support * PEG * Limited mobility * AMS * Family is not accepting well the sudden changes in patient's status. Daughter has been his director of primary care for long time and his chronic conditions to her was his norm. Daughter expect patient to return to previous level of functioning Suggestions * Continue CPAP trials * Thoracentesis is suggested by Academic Support Director * Aspiration precaution * Promote skin integrity * Family will need constant reinforcement and support * Full Code Palliative care will continue to fallow up with family and offer support. Advance Planing time 45 min
--- NOTE | 2017-10-13 13:48 | RAD ---
HISTORY: Central line insertion COMPARISON: Comparison made with prior study 10/13/2017 at 0658 hours FINDINGS: In situ ETT, tip of which lies approximately 3.74 cm above rayna. Interval placement right-sided PICC line is present with tip in the SVC. LUNGS: Bilateral mid to lower lobe opacities likely representing some combination of bilateral effusions with atelectasis and/or infiltrates PLEURA: No significant pleural effusion identified, no pneumothorax apparent. CARDIOVASCULAR: Heart cardiac silhouette stable. No change bipolar pacemaker OSSEOUS STRUCTURES: No significant abnormalities. VISUALIZED UPPER ABDOMEN: Normal. OTHER FINDINGS: None. IMPRESSION: Support lines and tubes as above. Bilateral effusions and bibasilar atelectasis and/or infiltrates
[2017-10-13] MEDS: Azithromycin 500 MG in Sodium Chloride 0.9% 250 ML IVPB SCH (16:00)
[2017-10-13] MEDS: Vancomycin 1 GM in Sodium Chloride 0.9% 200 ML IVPB SCH (16:00)
--- NOTE | 2017-10-13 16:06 | CARD ---
APPROVED REPORT EKG Measurement Heart [id number] <Conclusion> Atrial-sensed ventricular-paced rhythm Abnormal ECG
--- NOTE | 2017-10-13 18:12 | CP.CCUPN ---
<Mumtaz Carlton - Last Filed: 10/13/17 18:13> CCU Subjective - Physician Review Subjective (Free Text): Patient seen and examined at bedside. Does not follow commands. Responds to painful stimuli. Currently on Ventilator with 40% FiO2 and 400ml Tidal Volume. CCU Objective - Vital Signs / Intake & Output Vital Signs (Last 4 hours): Vital Signs Temp Pulse Resp BP Pulse Ox 10/13/17 18:08 131/52 L 10/13/17 18:07 75 19 99 10/13/17 18:00 70 16 99 10/13/17 17:38 79 18 133/59 L 98 10/13/17 17:08 74 18 130/56 L 98 10/13/17 17:00 78 17 99 10/13/17 16:38 76 19 132/58 L 97 10/13/17 16:08 75 18 142/57 L 98 10/13/17 16:00 84 19 99 10/13/17 15:13 74 18 144/55 L 98 10/13/17 15:00 98.5 F 70 18 136/78 98 10/13/17 14:13 63 16 113/45 L 95 Intake and Output (Last 8hrs): Intake & Output 10/13/17 10/13/17 10/13/17 06:59 14:59 22:59 Intake Total 310 210 120 Output Total 295 420 330 Balance 15 -210 -210 Weight 144 lb 13.499 oz Intake: Intake, IV Amount 50 Right Hand 50 Tube Feeding 260 210 120 Output: Urine 295 420 330 Urethral (Valladares) 295 420 330 Other: # Bowel Movements 1 1 - Physical Exam Head: Positive for: Atraumatic, Normocephalic Pupils: Positive for: PERRL Extroacular Muscles: Positive for: EOMI Conjunctiva: Positive for: Normal Mouth: Positive for: Dry Respiratory/Chest: Positive for: Clear to Auscultation, Decreased Breath Sounds (at bases) Cardiovascular: Positive for: Regular Rate and Rhythm Abdomen: Positive for: Normal Bowel Sounds. Negative for: Tenderness, Distention Upper Extremity: Positive for: Normal Inspection Lower Extremity: Positive for: Edema Skin: Negative for: Warm (wet) Psychiatric: Positive for: Alert. Negative for: Oriented x 3 Other physical findings (Free Text): B/L Gluteal Stage 3 Ulcers Erythematous in Perianal and Abdominal Folds Likely 2/2 to Candidal infection. Scabs/Abrasion on Lower Extremity B/L Cool distal Lower Extremities - Medications Active Medications: Active Medications Generic Name Dose Route Start Last Admin Trade Name Freq PRN Reason Stop Dose Admin Enoxaparin Sodium 40 mg 10/11/17 11:15 10/13/17 09:36 Lovenox SC 40 mg DAILY JEFFERY Administration Cefepime HCl 1 gm in 50 mls @ 100 mls/hr 10/11/17 00:00 10/13/17 12:00 Maxipime Iv 1 Gm Premix IVPB 100 mls/hr Q12H JEFFERY Administration Protocol Azithromycin 500 mg/ Sodium 250 mls @ 250 mls/hr 10/10/17 16:00 10/13/17 16: 00 Chloride IVPB 250 mls/hr DAILY@1600 JEFFERY Administration Protocol Vancomycin HCl 1 gm/ Sodium 200 mls @ 166.7 mls/hr 10/12/17 16:00 10/13/17 16 :00 Chloride IVPB 166.7 mls/hr Q24H JEFFERY Administration Protocol Insulin Aspart 0 unit 10/10/17 18:00 10/13/17 17:56 Novolog SC 3 unit Q6 JEFFERY Administration Protocol Pantoprazole Sodium 40 mg 10/11/17 10:00 10/13/17 10:00 Protonix Inj IVP 40 mg DAILY JEFFERY Administration Potassium Phos/Sodium Phos 1 pkt 10/12/17 11:30 10/13/17 17:57 Neutra-Phos PO 10/14/17 11:31 1 pkt BID JEFFERY Administration - Patient Studies Lab Studies: Microbiology Studies 10/10/17 11:45 Blood Culture - Preliminary Blood NO GROWTH AFTER 48 HOURS 10/10/17 12:15 Blood Culture - Preliminary Blood NO GROWTH AFTER 48 HOURS Lab Studies 10/13/17 10/13/17 10/13/17 Range/Units 17:38 11:39 05:59 WBC (4.8-10.8) K/uL RBC (4.40-5.90) Mil/uL Hgb (12.0-18.0) g/dL Hct (35.0-51.0) % MCV (80.0-94.0) fL MCH (27.0-31.0) pg MCHC (33.0-37.0) g/dL RDW (11.5-14.5) % Plt Count (130-400) K/uL MPV (7.2-11.7) fL Neut % (Auto) (50.0-75.0) % Lymph % (Auto) (20.0-40.0) % [place] % (Auto) (0.0-10.0) % Eos % (Auto) (0.0-4.0) % Baso % (Auto) (0.0-2.0) % Neut # (Auto) (1.8-7.0) K/uL Lymph # (Auto) (1.0-4.3) K/uL [place] # (Auto) (0.0-0.8) K/uL Eos # (Auto) (0.0-0.7) K/uL Baso # (Auto) (0.0-0.2) K/uL Neutrophils % (Manual) (50-75) % Lymphocytes % (Manual) (20-40) % Monocytes % (Manual) (0-10) % Eosinophils % (Manual) (0-4) % Nucleated RBC % (0-0) % Platelet Estimate (NORMAL) Hypochromasia (manual) Poikilocytosis (manual Anisocytosis (manual) Target Cells Puncture Site pCO2 (35-45) mm/Hg pO2 (80-100) mm/Hg HCO3 (21-28) mmol/L ABG pH (7.35-7.45) ABG Total CO2 (22-28) mmol/L ABG O2 Saturation (95-98) % ABG Base Excess (-2.0-3.0) mmol/L ABG Hemoglobin (11.7-17.4) g/dL ABG Carboxyhemoglobin (0.5-1.5) % POC ABG HHb (Measured) (0.0-5.0) % ABG Methemoglobin (0.0-3.0) % Lyle Test A-a O2 Difference mm/Hg Respiratory Index Hgb O2 Saturation (95.0-98.0) % Vent Mode Mechanical Rate FiO2 % Tidal Volume PEEP Crit Value Called To Crit Value Called By Crit Value Read Back Blood Gas Notified Time Sodium 144 (132-148) mmol/L Potassium 5.2 (3.6-5.2) mmol/L Chloride 111 H (98-107) mmol/L Carbon Dioxide 24 (22-30) mmol/L Anion Gap 14 (10-20) BUN 27 H (9-20) mg/dL Creatinine 1.3 (0.8-1.5) mg/dL Est GFR ( Amer) > 60 Est GFR (Non-Af Amer) 52 POC Glucose (mg/dL) 207 H 152 H (65-110) mg/dL Random Glucose 134 H (75-110) mg/dL Calcium 7.0 L (8.6-10.4) mg/dl Phosphorus 2.1 L (2.5-4.5) mg/dL Magnesium 2.0 (1.6-2.3) mg/dL Total Bilirubin 0.8 (0.2-1.3) mg/dL AST 188 H D (17-59) U/L ALT 55 (21-72) U/L Alkaline Phosphatase 154 H (38-126) U/L Total Protein 5.1 L (6.3-8.3) g/dL Albumin 2.2 L (3.5-5.0) g/dL Globulin 2.9 (2.2-3.9) gm/dL Albumin/Globulin Ratio 0.7 L (1.0-2.1) Vancomycin Trough (5.0-10.0) ug/mL 10/13/1718 10/13/17 Range/Units 05:59 05:59 05:27 WBC 9.8 (4.8-10.8) K/uL RBC 2.46 L (4.40-5.90) Mil/uL Hgb 8.1 L (12.0-18.0) g/dL Hct 23.1 L (35.0-51.0) % MCV 93.9 D (80.0-94.0) fL MCH 32.9 H (27.0-31.0) pg MCHC 35.0 (33.0-37.0) g/dL RDW 15.7 H (11.5-14.5) % Plt Count 134 (130-400) K/uL MPV 8.7 (7.2-11.7) fL Neut % (Auto) 83.2 H (50.0-75.0) % Lymph % (Auto) 4.5 L (20.0-40.0) % [place] % (Auto) 8.5 (0.0-10.0) % Eos % (Auto) 3.5 (0.0-4.0) % Baso % (Auto) 0.3 (0.0-2.0) % Neut # (Auto) 8.1 H (1.8-7.0) K/uL Lymph # (Auto) 0.4 L (1.0-4.3) K/uL [place] # (Auto) 0.8 (0.0-0.8) K/uL Eos # (Auto) 0.3 (0.0-0.7) K/uL Baso # (Auto) 0.0 (0.0-0.2) K/uL Neutrophils % (Manual) 84 H (50-75) % Lymphocytes % (Manual) 6 L (20-40) % Monocytes % (Manual) 7 (0-10) % Eosinophils % (Manual) 3 (0-4) % Nucleated RBC % 1 H (0-0) % Platelet Estimate Normal (NORMAL) Hypochromasia (manual) Slight Poikilocytosis (manual Slight Anisocytosis (manual) Slight Target Cells Slight Puncture Site pCO2 (35-45) mm/Hg pO2 (80-100) mm/Hg HCO3 (21-28) mmol/L ABG pH (7.35-7.45) ABG Total CO2 (22-28) mmol/L ABG O2 Saturation (95-98) % ABG Base Excess (-2.0-3.0) mmol/L ABG Hemoglobin (11.7-17.4) g/dL ABG Carboxyhemoglobin (0.5-1.5) % POC ABG HHb (Measured) (0.0-5.0) % ABG Methemoglobin (0.0-3.0) % Lyle Test A-a O2 Difference mm/Hg Respiratory Index Hgb O2 Saturation (95.0-98.0) % Vent Mode Mechanical Rate FiO2 % Tidal Volume PEEP Crit Value Called To Crit Value Called By Crit Value Read Back Blood Gas Notified Time Sodium (132-148) mmol/L Potassium (3.6-5.2) mmol/L Chloride (98-107) mmol/L Carbon Dioxide (22-30) mmol/L Anion Gap (10-20) BUN (9-20) mg/dL Creatinine (0.8-1.5) mg/dL Est GFR ( Amer) Est GFR (Non-Af Amer) POC Glucose (mg/dL) 157 H (65-110) mg/dL Random Glucose (75-110) mg/dL Calcium (8.6-10.4) mg/dl Phosphorus (2.5-4.5) mg/dL Magnesium (1.6-2.3) mg/dL Total Bilirubin (0.2-1.3) mg/dL AST (17-59) U/L ALT (21-72) U/L Alkaline Phosphatase (38-126) U/L Total Protein (6.3-8.3) g/dL Albumin (3.5-5.0) g/dL Globulin (2.2-3.9) gm/dL Albumin/Globulin Ratio (1.0-2.1) Vancomycin Trough 28.7 H (5.0-10.0) ug/mL 10/13/17 10/13/17 10/12/17 Range/Units 04:15 00:52 23:26 WBC (4.8-10.8) K/uL RBC (4.40-5.90) Mil/uL Hgb (12.0-18.0) g/dL Hct (35.0-51.0) % MCV (80.0-94.0) fL MCH (27.0-31.0) pg MCHC (33.0-37.0) g/dL RDW (11.5-14.5) % Plt Count (130-400) K/uL MPV (7.2-11.7) fL Neut % (Auto) (50.0-75.0) % Lymph % (Auto) (20.0-40.0) % [place] % (Auto) (0.0-10.0) % Eos % (Auto) (0.0-4.0) % Baso % (Auto) (0.0-2.0) % Neut # (Auto) (1.8-7.0) K/uL Lymph # (Auto) (1.0-4.3) K/uL [place] # (Auto) (0.0-0.8) K/uL Eos # (Auto) (0.0-0.7) K/uL Baso # (Auto) (0.0-0.2) K/uL Neutrophils % (Manual) (50-75) % Lymphocytes % (Manual) (20-40) % Monocytes % (Manual) (0-10) % Eosinophils % (Manual) (0-4) % Nucleated RBC % (0-0) % Platelet Estimate (NORMAL) Hypochromasia (manual) Poikilocytosis (manual Anisocytosis (manual) Target Cells Puncture Site Rb pCO2 21 L (35-45) mm/Hg pO2 179 H (80-100) mm/Hg HCO3 28.0 (21-28) mmol/L ABG pH 7.67 H* (7.35-7.45) ABG Total CO2 24.8 (22-28) mmol/L ABG O2 Saturation 100.4 H (95-98) % ABG Base Excess 3.9 H (-2.0-3.0) mmol/L ABG Hemoglobin 7.5 L (11.7-17.4) g/dL ABG Carboxyhemoglobin 2.1 H (0.5-1.5) % POC ABG HHb (Measured) -0.4 L (0.0-5.0) % ABG Methemoglobin 0.9 (0.0-3.0) % Lyle Test Na A-a O2 Difference 223.0 mm/Hg Respiratory Index 1.2 Hgb O2 Saturation 97.5 (95.0-98.0) % Vent Mode Prvc Mechanical Rate 16 FiO2 60.0 % Tidal Volume 500 PEEP 5 Crit Value Called To Alea montes/rn Crit Value Called By Ezekiel reynoso/rt Crit Value Read Back Y Blood Gas Notified Time 425 Sodium (132-148) mmol/L Potassium (3.6-5.2) mmol/L Chloride (98-107) mmol/L Carbon Dioxide (22-30) mmol/L Anion Gap (10-20) BUN (9-20) mg/dL Creatinine (0.8-1.5) mg/dL Est GFR ( Amer) Est GFR (Non-Af Amer) POC Glucose (mg/dL) 111 H 95 (65-110) mg/dL Random Glucose (75-110) mg/dL Calcium (8.6-10.4) mg/dl Phosphorus (2.5-4.5) mg/dL Magnesium (1.6-2.3) mg/dL Total Bilirubin (0.2-1.3) mg/dL AST (17-59) U/L ALT (21-72) U/L Alkaline Phosphatase (38-126) U/L Total Protein (6.3-8.3) g/dL Albumin (3.5-5.0) g/dL Globulin (2.2-3.9) gm/dL Albumin/Globulin Ratio (1.0-2.1) Vancomycin Trough (5.0-10.0) ug/mL Laboratory Results - last 24 hr 10/12/17 10/13/17 10/13/17 23:26 00:52 04:15 WBC RBC Hgb Hct MCV MCH MCHC RDW Plt Count MPV Neut % (Auto) Lymph % (Auto) [place] % (Auto) Eos % (Auto) Baso % (Auto) Neut # (Auto) Lymph # (Auto) [place] # (Auto) Eos # (Auto) Baso # (Auto) Neutrophils % (Manual) Lymphocytes % (Manual) Monocytes % (Manual) Eosinophils % (Manual) Nucleated RBC % Platelet Estimate Hypochromasia (manual) Poikilocytosis (manual Anisocytosis (manual) Target Cells Puncture Site Rb pCO2 21 L pO2 179 H HCO3 28.0 ABG pH 7.67 H* ABG Total CO2 24.8 ABG O2 Saturation 100.4 H ABG Base Excess 3.9 H ABG Hemoglobin 7.5 L ABG Carboxyhemoglobin 2.1 H POC ABG HHb (Measured) -0.4 L ABG Methemoglobin 0.9 Lyle Test Na A-a O2 Difference 223.0 Respiratory Index 1.2 Hgb O2 Saturation 97.5 Vent Mode Prvc Mechanical Rate 16 FiO2 60.0 Tidal Volume 500 PEEP 5 Crit Value Called To Alea montes/rn Crit Value Called By Ezekiel reynoso/rt Crit Value Read Back Y Blood Gas Notified Time 425 Sodium Potassium Chloride Carbon Dioxide Anion Gap BUN Creatinine Est GFR ( Amer) Est GFR (Non-Af Amer) POC Glucose (mg/dL) 95 111 H Random Glucose Calcium Phosphorus Magnesium Total Bilirubin AST ALT Alkaline Phosphatase Total Protein Albumin Globulin Albumin/Globulin Ratio Vancomycin Trough 10/13/17 10/13/17 10/13/17 05:27 05:59 05:59 WBC 9.8 RBC 2.46 L Hgb 8.1 L Hct 23.1 L MCV 93.9 D MCH 32.9 H MCHC 35.0 RDW 15.7 H Plt Count 134 MPV 8.7 Neut % (Auto) 83.2 H Lymph % (Auto) 4.5 L [place] % (Auto) 8.5 Eos % (Auto) 3.5 Baso % (Auto) 0.3 Neut # (Auto) 8.1 H Lymph # (Auto) 0.4 L [place] # (Auto) 0.8 Eos # (Auto) 0.3 Baso # (Auto) 0.0 Neutrophils % (Manual) 84 H Lymphocytes % (Manual) 6 L Monocytes % (Manual) 7 Eosinophils % (Manual) 3 Nucleated RBC % 1 H Platelet Estimate Normal Hypochromasia (manual) Slight Poikilocytosis (manual Slight Anisocytosis (manual) Slight Target Cells Slight Puncture Site pCO2 pO2 HCO3 ABG pH ABG Total CO2 ABG O2 Saturation ABG Base Excess ABG Hemoglobin ABG Carboxyhemoglobin POC ABG HHb (Measured) ABG Methemoglobin Lyle Test A-a O2 Difference Respiratory Index Hgb O2 Saturation Vent Mode Mechanical Rate FiO2 Tidal Volume PEEP Crit Value Called To Crit Value Called By Crit Value Read Back Blood Gas Notified Time Sodium Potassium Chloride Carbon Dioxide Anion Gap BUN Creatinine Est GFR ( Amer) Est GFR (Non-Af Amer) POC Glucose (mg/dL) 157 H Random Glucose Calcium Phosphorus Magnesium Total Bilirubin AST ALT Alkaline Phosphatase Total Protein Albumin Globulin Albumin/Globulin Ratio Vancomycin Trough 28.7 H 10/13/17 10/13/17 10/13/17 05:59 11:39 17:38 WBC RBC Hgb Hct MCV MCH MCHC RDW Plt Count MPV Neut % (Auto) Lymph % (Auto) [place] % (Auto) Eos % (Auto) Baso % (Auto) Neut # (Auto) Lymph # (Auto) [place] # (Auto) Eos # (Auto) Baso # (Auto) Neutrophils % (Manual) Lymphocytes % (Manual) Monocytes % (Manual) Eosinophils % (Manual) Nucleated RBC % Platelet Estimate Hypochromasia (manual) Poikilocytosis (manual Anisocytosis (manual) Target Cells Puncture Site pCO2 pO2 HCO3 ABG pH ABG Total CO2 ABG O2 Saturation ABG Base Excess ABG Hemoglobin ABG Carboxyhemoglobin POC ABG HHb (Measured) ABG Methemoglobin Lyle Test A-a O2 Difference Respiratory Index Hgb O2 Saturation Vent Mode Mechanical Rate FiO2 Tidal Volume PEEP Crit Value Called To Crit Value Called By Crit Value Read Back Blood Gas Notified Time Sodium 144 Potassium 5.2 Chloride 111 H Carbon Dioxide 24 Anion Gap 14 BUN 27 H Creatinine 1.3 Est GFR ( Amer) > 60 Est GFR (Non-Af Amer) 52 POC Glucose (mg/dL) 152 H 207 H Random Glucose 134 H Calcium 7.0 L Phosphorus 2.1 L Magnesium 2.0 Total Bilirubin 0.8 AST 188 H D ALT 55 Alkaline Phosphatase 154 H Total Protein 5.1 L Albumin 2.2 L Globulin 2.9 Albumin/Globulin Ratio 0.7 L Vancomycin Trough Fingerstick Blood Sugar Results: 207 Review of Systems - Review of Systems Systems not reviewed;Unavailable: Intubated Critical Care Progress Note - Nutrition Nutrition: Nutrition Category Date Time Status NPO Diet [DIET] Diets 10/10/17 Dinner Active Assessment/Plan - Assessment and Plan (Free Text) Assessment: 87 year old male with PMHx CAD, pacemaker, DM2, CHF, HLD, dementia who presented from the assisted in respiratory arrest. 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 No acute hemmorahge. Cardio A: CAD, CHF Hold Home Antihypertensives Pulm A: Aspiration PNA AB.67/21/179/28 On Vent. 400ml TV and 40% FiO2 CXR (10/13/17): Bilateral effusions and bibasilar atelectasis and/or infiltrates GI A: HLD Consider Restarting Home Statins : I/O: 370/970 Nephro/electrolytes Neutra-Phos 1 pkt PO BID JEFFERY ID Afebrile, No Leukocytosis Blood, Urine, and Nares Cultures NEGATIVE Cont. Emperic Antibiotic Coverage Vancomycin 1gm Daily Cefepime 1gm Q12H Azithromycin 500mg Daily Consider ProCal Endo A: DM II Novolog Integumentary A: Candidiasis in perianal and Abd. Folds Nystatin Powder. MSK PT/OT Prophylaxis Lovenox SC Daily Protonix IV Daily Tube Feeding (Vital 1.2) Dispo: Case management referral for LTAC Patient seen and discussed with ICU Attending Mumtaz Carlton, PGY-1 <Kurtis Cooper - Last Filed: 10/14/17 12:13> CCU Objective - Vital Signs / Intake & Output Vital Signs (Last 4 hours): Vital Signs Temp Pulse Resp BP Pulse Ox 10/14/17 08:00 71 19 99 10/14/17 07:52 98.3 F 72 17 124/49 L 99 10/14/17 07:00 72 21 100 10/14/17 06:52 78 19 143/57 L 100 10/14/17 06:00 71 18 98 10/14/17 05:52 114/44 L 10/14/17 05:00 75 20 100 10/14/17 04:52 130/54 L Intake and Output (Last 8hrs): Intake & Output 10/13/17 10/14/17 10/14/17 22:59 06:59 14:59 Intake Total 360 450 50 Output Total 615 325 65 Balance -255 125 -15 Weight 128 lb 7 oz 147 lb 14.883 oz Intake: Intake, IV Amount 150 Right Antecubital 150 Tube Feeding 360 300 50 Output: Urine 615 325 65 Urethral (Valladares) 615 325 65 Other: # Bowel Movements 1 1 - Medications Active Medications: Active Medications Generic Name Dose Route Start Last Admin Trade Name Freq PRN Reason Stop Dose Admin Enoxaparin Sodium 40 mg 10/11/17 11:15 10/13/17 09:36 Lovenox SC 40 mg DAILY JEFFERY Administration Azithromycin 500 mg/ Sodium 250 mls @ 250 mls/hr 10/10/17 16:00 10/13/17 16: 00 Chloride IVPB 250 mls/hr DAILY@1600 JEFFERY Administration Protocol Vancomycin HCl 1 gm/ Sodium 200 mls @ 166.7 mls/hr 10/12/17 16:00 10/13/17 16 :00 Chloride IVPB 166.7 mls/hr Q24H JEFFERY Administration Protocol Insulin Aspart 0 unit 10/10/17 18:00 10/14/17 06:06 Novolog SC 3 unit Q6 JEFFERY Administration Protocol Pantoprazole Sodium 40 mg 10/11/17 10:00 10/13/17 10:00 Protonix Inj IVP 40 mg DAILY JEFFERY Administration Potassium Phos/Sodium Phos 1 pkt 10/12/17 11:30 05/07/18 17:57 Neutra-Phos PO 10/14/17 11:31 1 pkt BID JEFFERY Administration - Patient Studies Lab Studies: Microbiology Studies 10/10/17 11:45 Blood Culture - Preliminary Blood NO GROWTH AFTER 3 DAYS 10/10/17 12:15 Blood Culture - Preliminary Blood NO GROWTH AFTER 3 DAYS Lab Studies 10/14/17 10/14/17 10/14/17 Range/Units 06:05 06:04 05:21 WBC 8.7 (4.8-10.8) K/uL RBC 2.56 L (4.40-5.90) Mil/uL Hgb 8.1 L (12.0-18.0) g/dL Hct 23.8 L (35.0-51.0) % MCV 93.1 (80.0-94.0) fL MCH 31.6 H (27.0-31.0) pg MCHC 33.9 (33.0-37.0) g/dL RDW 15.7 H (11.5-14.5) % Plt Count 222 (130-400) K/uL MPV 8.0 (7.2-11.7) fL Neut % (Auto) 82.4 H (50.0-75.0) % Lymph % (Auto) 5.9 L (20.0-40.0) % [place] % (Auto) 8.5 (0.0-10.0) % Eos % (Auto) 2.6 (0.0-4.0) % Baso % (Auto) 0.6 (0.0-2.0) % Neut # (Auto) 7.2 H (1.8-7.0) K/uL Lymph # (Auto) 0.5 L (1.0-4.3) K/uL [place] # (Auto) 0.7 (0.0-0.8) K/uL Eos # (Auto) 0.2 (0.0-0.7) K/uL Baso # (Auto) 0.1 (0.0-0.2) K/uL Neutrophils % (Manual) 82 H (50-75) % Lymphocytes % (Manual) 4 L (20-40) % Monocytes % (Manual) 8 (0-10) % Eosinophils % (Manual) 5 H (0-4) % Basophils % (Manual) 1 (0-2) % Nucleated RBC % (0-0) % Platelet Estimate Normal (NORMAL) Hypochromasia (manual) Slight Poikilocytosis (manual Slight Anisocytosis (manual) Slight Microcytosis (manual) Slight Macrocytosis (manual) Slight Target Cells Slight [place] Cells Slight Puncture Site Rr pCO2 37 (35-45) mm/Hg pO2 93 (80-100) mm/Hg HCO3 27.9 (21-28) mmol/L ABG pH 7.48 H (7.35-7.45) ABG Total CO2 28.7 H (22-28) mmol/L ABG O2 Saturation 99.3 H (95-98) % ABG Base Excess 3.8 H (-2.0-3.0) mmol/L ABG Hemoglobin 7.8 L (11.7-17.4) g/dL ABG Carboxyhemoglobin 1.7 H (0.5-1.5) % POC ABG HHb (Measured) 0.7 (0.0-5.0) % ABG Methemoglobin 0.6 (0.0-3.0) % Lyle Test Pos A-a O2 Difference 146.0 mm/Hg Respiratory Index 1.6 Hgb O2 Saturation 97.0 (95.0-98.0) % Vent Mode Prvc Mechanical Rate 12 FiO2 40.0 % Tidal Volume 400 PEEP 5 Sodium 144 (132-148) mmol/L Potassium 3.6 (3.6-5.2) mmol/L Chloride 108 H (98-107) mmol/L Carbon Dioxide 28 (22-30) mmol/L Anion Gap 12 (10-20) BUN 27 H (9-20) mg/dL Creatinine 1.4 (0.8-1.5) mg/dL Est GFR ( Amer) 58 Est GFR (Non-Af Amer) 48 POC Glucose (mg/dL) (65-110) mg/dL Random Glucose 198 H (75-110) mg/dL Calcium 7.5 L (8.6-10.4) mg/dl Phosphorus 1.5 L (2.5-4.5) mg/dL Magnesium 2.0 (1.6-2.3) mg/dL Total Bilirubin 0.4 (0.2-1.3) mg/dL AST 54 (17-59) U/L ALT 42 (21-72) U/L Alkaline Phosphatase 180 H (38-126) U/L Total Protein 5.2 L (6.3-8.3) g/dL Albumin 2.4 L (3.5-5.0) g/dL Globulin 2.9 (2.2-3.9) gm/dL Albumin/Globulin Ratio 0.8 L (1.0-2.1) 10/14/17 10/13/17 10/13/17 Range/Units 05:00 23:30 17:38 WBC (4.8-10.8) K/uL RBC (4.40-5.90) Mil/uL Hgb (12.0-18.0) g/dL Hct (35.0-51.0) % MCV (80.0-94.0) fL MCH (27.0-31.0) pg MCHC (33.0-37.0) g/dL RDW (11.5-14.5) % Plt Count (130-400) K/uL MPV (7.2-11.7) fL Neut % (Auto) (50.0-75.0) % Lymph % (Auto) (20.0-40.0) % [place] % (Auto) (0.0-10.0) % Eos % (Auto) (0.0-4.0) % Baso % (Auto) (0.0-2.0) % Neut # (Auto) (1.8-7.0) K/uL Lymph # (Auto) (1.0-4.3) K/uL [place] # (Auto) (0.0-0.8) K/uL Eos # (Auto) (0.0-0.7) K/uL Baso # (Auto) (0.0-0.2) K/uL Neutrophils % (Manual) (50-75) % Lymphocytes % (Manual) (20-40) % Monocytes % (Manual) (0-10) % Eosinophils % (Manual) (0-4) % Basophils % (Manual) (0-2) % Nucleated RBC % (0-0) % Platelet Estimate (NORMAL) Hypochromasia (manual) Poikilocytosis (manual Anisocytosis (manual) Microcytosis (manual) Macrocytosis (manual) Target Cells [place] Cells Puncture Site pCO2 (35-45) mm/Hg pO2 (80-100) mm/Hg HCO3 (21-28) mmol/L ABG pH (7.35-7.45) ABG Total CO2 (22-28) mmol/L ABG O2 Saturation (95-98) % ABG Base Excess (-2.0-3.0) mmol/L ABG Hemoglobin (11.7-17.4) g/dL ABG Carboxyhemoglobin (0.5-1.5) % POC ABG HHb (Measured) (0.0-5.0) % ABG Methemoglobin (0.0-3.0) % Lyle Test A-a O2 Difference mm/Hg Respiratory Index Hgb O2 Saturation (95.0-98.0) % Vent Mode Mechanical Rate FiO2 % Tidal Volume PEEP Sodium (132-148) mmol/L Potassium (3.6-5.2) mmol/L Chloride (98-107) mmol/L Carbon Dioxide (22-30) mmol/L Anion Gap (10-20) BUN (9-20) mg/dL Creatinine (0.8-1.5) mg/dL Est GFR ( Amer) Est GFR (Non-Af Amer) POC Glucose (mg/dL) 233 H 254 H 207 H (65-110) mg/dL Random Glucose (75-110) mg/dL Calcium (8.6-10.4) mg/dl Phosphorus (2.5-4.5) mg/dL Magnesium (1.6-2.3) mg/dL Total Bilirubin (0.2-1.3) mg/dL AST (17-59) U/L ALT (21-72) U/L Alkaline Phosphatase (38-126) U/L Total Protein (6.3-8.3) g/dL Albumin (3.5-5.0) g/dL Globulin (2.2-3.9) gm/dL Albumin/Globulin Ratio (1.0-2.1) 18 10/13/17 Range/Units 11:39 05:59 WBC (4.8-10.8) K/uL RBC (4.40-5.90) Mil/uL Hgb (12.0-18.0) g/dL Hct (35.0-51.0) % MCV (80.0-94.0) fL MCH (27.0-31.0) pg MCHC (33.0-37.0) g/dL RDW (11.5-14.5) % Plt Count (130-400) K/uL MPV (7.2-11.7) fL Neut % (Auto) (50.0-75.0) % Lymph % (Auto) (20.0-40.0) % [place] % (Auto) (0.0-10.0) % Eos % (Auto) (0.0-4.0) % Baso % (Auto) (0.0-2.0) % Neut # (Auto) (1.8-7.0) K/uL Lymph # (Auto) (1.0-4.3) K/uL [place] # (Auto) (0.0-0.8) K/uL Eos # (Auto) (0.0-0.7) K/uL Baso # (Auto) (0.0-0.2) K/uL Neutrophils % (Manual) 84 H (50-75) % Lymphocytes % (Manual) 6 L (20-40) % Monocytes % (Manual) 7 (0-10) % Eosinophils % (Manual) 3 (0-4) % Basophils % (Manual) (0-2) % Nucleated RBC % 1 H (0-0) % Platelet Estimate Normal (NORMAL) Hypochromasia (manual) Slight Poikilocytosis (manual Slight Anisocytosis (manual) Slight Microcytosis (manual) Macrocytosis (manual) Target Cells Slight [place] Cells Puncture Site pCO2 (35-45) mm/Hg pO2 (80-100) mm/Hg HCO3 (21-28) mmol/L ABG pH (7.35-7.45) ABG Total CO2 (22-28) mmol/L ABG O2 Saturation (95-98) % ABG Base Excess (-2.0-3.0) mmol/L ABG Hemoglobin (11.7-17.4) g/dL ABG Carboxyhemoglobin (0.5-1.5) % POC ABG HHb (Measured) (0.0-5.0) % ABG Methemoglobin (0.0-3.0) % Lyle Test A-a O2 Difference mm/Hg Respiratory Index Hgb O2 Saturation (95.0-98.0) % Vent Mode Mechanical Rate FiO2 % Tidal Volume PEEP Sodium (132-148) mmol/L Potassium (3.6-5.2) mmol/L Chloride (98-107) mmol/L Carbon Dioxide (22-30) mmol/L Anion Gap (10-20) BUN (9-20) mg/dL Creatinine (0.8-1.5) mg/dL Est GFR ( Amer) Est GFR (Non-Af Amer) POC Glucose (mg/dL) 152 H (65-110) mg/dL Random Glucose (75-110) mg/dL Calcium (8.6-10.4) mg/dl Phosphorus (2.5-4.5) mg/dL Magnesium (1.6-2.3) mg/dL Total Bilirubin (0.2-1.3) mg/dL AST (17-59) U/L ALT (21-72) U/L Alkaline Phosphatase (38-126) U/L Total Protein (6.3-8.3) g/dL Albumin (3.5-5.0) g/dL Globulin (2.2-3.9) gm/dL Albumin/Globulin Ratio (1.0-2.1) Laboratory Results - last 24 hr 10/13/17 10/13/17 10/13/17 05:59 11:39 17:38 WBC RBC Hgb Hct MCV MCH MCHC RDW Plt Count MPV Neut % (Auto) Lymph % (Auto) [place] % (Auto) Eos % (Auto) Baso % (Auto) Neut # (Auto) Lymph # (Auto) [place] # (Auto) Eos # (Auto) Baso # (Auto) Neutrophils % (Manual) 84 H Lymphocytes % (Manual) 6 L Monocytes % (Manual) 7 Eosinophils % (Manual) 3 Basophils % (Manual) Nucleated RBC % 1 H Platelet Estimate Normal Hypochromasia (manual) Slight Poikilocytosis (manual Slight Anisocytosis (manual) Slight Microcytosis (manual) Macrocytosis (manual) Target Cells Slight [place] Cells Puncture Site pCO2 pO2 HCO3 ABG pH ABG Total CO2 ABG O2 Saturation ABG Base Excess ABG Hemoglobin ABG Carboxyhemoglobin POC ABG HHb (Measured) ABG Methemoglobin Lyle Test A-a O2 Difference Respiratory Index Hgb O2 Saturation Vent Mode Mechanical Rate FiO2 Tidal Volume PEEP Sodium Potassium Chloride Carbon Dioxide Anion Gap BUN Creatinine Est GFR ( Amer) Est GFR (Non-Af Amer) POC Glucose (mg/dL) 152 H 207 H Random Glucose Calcium Phosphorus Magnesium Total Bilirubin AST ALT Alkaline Phosphatase Total Protein Albumin Globulin Albumin/Globulin Ratio 10/13/17 10/14/17 10/14/17 23:30 05:00 05:21 WBC RBC Hgb Hct MCV MCH MCHC RDW Plt Count MPV Neut % (Auto) Lymph % (Auto) [place] % (Auto) Eos % (Auto) Baso % (Auto) Neut # (Auto) Lymph # (Auto) [place] # (Auto) Eos # (Auto) Baso # (Auto) Neutrophils % (Manual) Lymphocytes % (Manual) Monocytes % (Manual) Eosinophils % (Manual) Basophils % (Manual) Nucleated RBC % Platelet Estimate Hypochromasia (manual) Poikilocytosis (manual Anisocytosis (manual) Microcytosis (manual) Macrocytosis (manual) Target Cells [place] Cells Puncture Site Rr pCO2 37 pO2 93 HCO3 27.9 ABG pH 7.48 H ABG Total CO2 28.7 H ABG O2 Saturation 99.3 H ABG Base Excess 3.8 H ABG Hemoglobin 7.8 L ABG Carboxyhemoglobin 1.7 H POC ABG HHb (Measured) 0.7 ABG Methemoglobin 0.6 Lyle Test Pos A-a O2 Difference 146.0 Respiratory Index 1.6 Hgb O2 Saturation 97.0 Vent Mode Prvc Mechanical Rate 12 FiO2 40.0 Tidal Volume 400 PEEP 5 Sodium Potassium Chloride Carbon Dioxide Anion Gap BUN Creatinine Est GFR ( Amer) Est GFR (Non-Af Amer) POC Glucose (mg/dL) 254 H 233 H Random Glucose Calcium Phosphorus Magnesium Total Bilirubin AST ALT Alkaline Phosphatase Total Protein Albumin Globulin Albumin/Globulin Ratio 10/14/17 10/14/17 06:04 06:05 WBC 8.7 RBC 2.56 L Hgb 8.1 L Hct 23.8 L MCV 93.1 MCH 31.6 H MCHC 33.9 RDW 15.7 H Plt Count 222 MPV 8.0 Neut % (Auto) 82.4 H Lymph % (Auto) 5.9 L [place] % (Auto) 8.5 Eos % (Auto) 2.6 Baso % (Auto) 0.6 Neut # (Auto) 7.2 H Lymph # (Auto) 0.5 L [place] # (Auto) 0.7 Eos # (Auto) 0.2 Baso # (Auto) 0.1 Neutrophils % (Manual) 82 H Lymphocytes % (Manual) 4 L Monocytes % (Manual) 8 Eosinophils % (Manual) 5 H Basophils % (Manual) 1 Nucleated RBC % Platelet Estimate Normal Hypochromasia (manual) Slight Poikilocytosis (manual Slight Anisocytosis (manual) Slight Microcytosis (manual) Slight Macrocytosis (manual) Slight Target Cells Slight [place] Cells Slight Puncture Site pCO2 pO2 HCO3 ABG pH ABG Total CO2 ABG O2 Saturation ABG Base Excess ABG Hemoglobin ABG Carboxyhemoglobin POC ABG HHb (Measured) ABG Methemoglobin Lyle Test A-a O2 Difference Respiratory Index Hgb O2 Saturation Vent Mode Mechanical Rate FiO2 Tidal Volume PEEP Sodium 144 Potassium 3.6 Chloride 108 H Carbon Dioxide 28 Anion Gap 12 BUN 27 H Creatinine 1.4 Est GFR ( Amer) 58 Est GFR (Non-Af Amer) 48 POC Glucose (mg/dL) Random Glucose 198 H Calcium 7.5 L Phosphorus 1.5 L Magnesium 2.0 Total Bilirubin 0.4 AST 54 ALT 42 Alkaline Phosphatase 180 H Total Protein 5.2 L Albumin 2.4 L Globulin 2.9 Albumin/Globulin Ratio 0.8 L Critical Care Progress Note - Nutrition Nutrition: Nutrition Category Date Time Status NPO Diet [DIET] Diets 10/10/17 Dinner Active
--- NOTE | 2017-10-13 21:40 | CP.PCM.PN ---
Subjective - Date & Time of Evaluation Date of Evaluation: 10/13/17 Time of Evaluation: 12:20 - Subjective Subjective: clinically same Objective - Vital Signs/Intake and Output Vital Signs (last 24 hours): Temp Pulse Resp BP Pulse Ox 98.2 F 72 18 141/60 99 10/13/17 20:00 10/13/17 21:00 10/13/17 21:00 10/13/17 20:52 10/13/17 21:00 Intake and Output: 10/13/17 10/14/17 18:59 06:59 Intake Total 370 150 Output Total 970 130 Balance -600 20 - Medications Medications: Current Medications Enoxaparin Sodium (Lovenox) 40 mg SC DAILY [facility] Last Admin: 10/13/17 09:36 Dose: 40 mg Cefepime HCl (Maxipime Iv 1 Gm Premix) 1 gm in 50 mls @ 100 mls/hr IVPB Q12H JEFFERY PRN Reason: Protocol Last Admin: 10/13/17 12:00 Dose: 100 mls/hr Azithromycin 500 mg/ Sodium (Chloride) 250 mls @ 250 mls/hr IVPB DAILY@1600 JEFFERY PRN Reason: Protocol Last Admin: 10/13/17 16:00 Dose: 250 mls/hr Vancomycin HCl 1 gm/ Sodium (Chloride) 200 mls @ 166.7 mls/hr IVPB Q24H JEFFERY PRN Reason: Protocol Last Admin: 10/13/17 16:00 Dose: 166.7 mls/hr Insulin Aspart (Novolog) 0 unit SC Q6 JEFFERY PRN Reason: Protocol Last Admin: 10/13/17 17:56 Dose: 3 unit Pantoprazole Sodium (Protonix Inj) 40 mg IVP DAILY [facility] Last Admin: 10/13/17 10:00 Dose: 40 mg Potassium Phos/Sodium Phos (Neutra-Phos) 1 pkt PO BID [facility] Stop: 10/14/17 11:31 Last Admin: 10/13/17 17:57 Dose: 1 pkt - Labs Labs: 10/13/17 05:59 10/13/17 05:59 PT 12.6 SECONDS (9.7-12.2) H 10/10/17 12:02 INR 1.1 10/10/17 12:02 APTT 18 SECONDS (21-34) L 05/04/18 12:02 - Constitutional Appears: Well - Head Exam Head Exam: ATRAUMATIC, NORMAL INSPECTION, NORMOCEPHALIC - Eye Exam Eye Exam: EOMI, Normal appearance, PERRL Pupil Exam: NORMAL ACCOMODATION, PERRL - ENT Exam ENT Exam: Mucous Membranes Moist, Normal Exam - Neck Exam Neck Exam: Full ROM, Normal Inspection. absent: Lymphadenopathy - Respiratory Exam Respiratory Exam: Decreased Breath Sounds - Cardiovascular Exam Cardiovascular Exam: REGULAR RHYTHM, +S1, +S2 - GI/Abdominal Exam GI & Abdominal Exam: Soft, Diminished Bowel Sounds - Rectal Exam Rectal Exam: Deferred
[2017-10-13] MEDS ORDERED: Albumin Human 25% (12.5 gm/50 ml) IV ONE (23:58)
[2017-10-14] MEDS: Cefepime IV 1 gm in Dextrose 1 GM/50 ML BAG IVPB SCH ×2 (00:01→12:22)
[2017-10-14] MEDS: (Novolog) Insulin Aspart, Recombinant 100 u/ml 10 ml vial SC SCH ×4 (00:03→17:54)
[2017-10-14] MEDS ORDERED: Albumin Human 25% (12.5 gm/50 ml) IV ONE (01:15)
[2017-10-14 05:31] LABS: ABG ALLEN TEST POS; ARTERIAL BLOOD GAS HCO3 27.9 mmol/L (21-28); ARTERIAL BLOOD GAS HEMOGLOBIN 7.8 g/dL (11.7-17.4); ARTERIAL BLOOD GAS O2 SAT 99.3 % (95-98); ARTERIAL BLOOD GAS PCO2 37 mm/Hg (35-45); ARTERIAL BLOOD GAS PH 7.48 (7.35-7.45); ARTERIAL BLOOD GAS PO2 93 mm/Hg (80-100); ARTERIAL BLOOD GAS TCO2 28.7 mmol/L (22-28)
[2017-10-14 06:19] LABS: BASO # 0.1 K/uL (0.0-0.2); BASO % 0.6 % (0.0-2.0); EOS # 0.2 K/uL (0.0-0.7); EOS % 2.6 % (0.0-4.0); HEMOGLOBIN 8.1 g/dL (12.0-18.0); LYMPH # 0.5 K/uL (1.0-4.3); LYMPH % 5.9 % (20.0-40.0); MEAN CELL VOLUME 93.1 fL (80.0-94.0); MEAN CORPUSCULAR HEMOGLOBIN 31.6 pg (27.0-31.0); MEAN CORPUSCULAR HGB CONC 33.9 g/dL (33.0-37.0); MONO # 0.7 K/uL (0.0-0.8); MONO % 8.5 % (0.0-10.0); NEUT # 7.2 K/uL (1.8-7.0); NEUT % 82.4 % (50.0-75.0); NRBC % 0.1 % (0.0-2.0); PLATELET COUNT 222 K/uL (130-400); RBC 2.56 Mil/uL (4.40-5.90); RED CELL DISTRIBUTION WIDTH 15.7 % (11.5-14.5); WHITE BLOOD COUNT 8.7 K/uL (4.8-10.8)
[2017-10-14 06:47] LABS: ALB/GLOB RATIO 0.8 (1.0-2.1); ALBUMIN 2.4 g/dL (3.5-5.0); CALCIUM 7.5 mg/dl (8.6-10.4)
[2017-10-14 08:28] LABS: BASOPHIL 1 % (0-2); LYMPHOCYTE 4 % (20-40); NEUTROPHIL 82 % (50-75); PLATELET ESTIMATE NORMAL (NORMAL); TOTAL CELLS COUNTED 100
[2017-10-14 08:29] LABS: ANISOCYTOSIS SLIGHT; EOSINOPHIL 5 % (0-4); HYPOCHROMIC SLIGHT; MICROCYTOSIS SLIGHT; MONOCYTE 8 % (0-10); POIKILOCYTOSIS SLIGHT; TARGET CELLS SLIGHT
[2017-10-14 08:30] LABS: BURR CELLS SLIGHT
--- NOTE | 2017-10-14 08:34 | RAD ---
Chest x-ray single frontal view History: Intubated. Comparison: 10/13/2017 Findings: Endotracheal tube extending into the mid thoracic trachea. Other lines and tubes in stable position. Moderate to severe venous congestion. Prominent consolidative opacifications seen within the mid to lower lung zones bilaterally with small to moderate right and small left pleural effusion. Biapical pleural thickening with upper lobe granulomatous changes. Left-sided pacemaker. Top normal heart size. Degenerative changes in the spine and shoulders. Impression: Endotracheal tube extending into the mid thoracic trachea. Other lines and tubes in stable position. Moderate to severe venous congestion. Prominent consolidative opacifications seen within the mid to lower lung zones bilaterally with small to moderate right and small left pleural effusion. Biapical pleural thickening with upper lobe granulomatous changes. Left-sided pacemaker. Top normal heart size. Degenerative changes in the spine and shoulders.
[2017-10-14] MEDS: Enoxaparin 40 mg Syringe SC SCH (09:50)
[2017-10-14] MEDS: Potassium & Sodium Phosphate PO SCH (09:50)
--- NOTE | 2017-10-14 10:18 | CP.PCM.PN ---
Subjective - Date & Time of Evaluation Date of Evaluation: 10/14/17 Time of Evaluation: 09:00 - Subjective Subjective: intubated/ unresponsive afebrile NAD Objective - Vital Signs/Intake and Output Vital Signs (last 24 hours): Temp Pulse Resp BP Pulse Ox 98.3 F 75 18 126/52 L 99 10/14/17 07:52 10/14/17 10:00 10/14/17 10:00 10/14/17 09:52 10/14/17 10:00 Intake and Output: 10/14/17 10/14/17 06:59 18:59 Intake Total 650 150 Output Total 530 160 Balance 120 -10 - Medications Medications: Current Medications Enoxaparin Sodium (Lovenox) 40 mg SC DAILY [facility] Last Admin: 10/14/17 09:50 Dose: 40 mg Azithromycin 500 mg/ Sodium (Chloride) 250 mls @ 250 mls/hr IVPB DAILY@1600 JEFFERY PRN Reason: Protocol Last Admin: 10/13/17 16:00 Dose: 250 mls/hr Vancomycin HCl 1 gm/ Sodium (Chloride) 200 mls @ 166.7 mls/hr IVPB Q24H JEFFERY PRN Reason: Protocol Last Admin: 10/13/17 16:00 Dose: 166.7 mls/hr Insulin Aspart (Novolog) 0 unit SC Q6 JEFFERY PRN Reason: Protocol Last Admin: 10/14/17 06:06 Dose: 3 unit Pantoprazole Sodium (Protonix Inj) 40 mg IVP DAILY [facility] Last Admin: 10/14/17 09:50 Dose: 40 mg Potassium Phos/Sodium Phos (Neutra-Phos) 1 pkt PO BID [facility] Stop: 10/14/17 11:31 Last Admin: 10/14/17 09:50 Dose: 1 pkt - Labs Labs: 10/14/17 06:05 10/14/17 06:04 PT 12.6 SECONDS (9.7-12.2) H 10/10/17 12:02 INR 1.1 10/10/17 12:02 APTT 18 SECONDS (21-34) L 10/10/17 12:02 - Constitutional Appears: Confused, Cachectic, Chronically Ill - Head Exam Head Exam: ATRAUMATIC, NORMAL INSPECTION, NORMOCEPHALIC - Eye Exam Eye Exam: PERRL. absent: Scleral icterus - ENT Exam ENT Exam: Mucous Membranes Dry - Neck Exam Neck Exam: absent: Lymphadenopathy - Respiratory Exam Respiratory Exam: Decreased Breath Sounds - Cardiovascular Exam Cardiovascular Exam: REGULAR RHYTHM - GI/Abdominal Exam GI & Abdominal Exam: Distended, Soft - Rectal Exam Rectal Exam: Deferred - Exam Exam: NORMAL INSPECTION - Extremities Exam Extremities Exam: Pedal Edema. absent: Calf Tenderness, Tenderness - Back Exam Back Exam: absent: CVA tenderness (L), CVA tenderness (R) - Neurological Exam Neurological Exam: Altered - Psychiatric Exam Psychiatric exam: Depressed - Skin Skin Exam: Dry. absent: Intact Assessment and Plan (1) Respiratory arrest Status: Acute (2) Aspiration pneumonia Status: Acute (3) Bronchitis Status: Acute (4) CAD (coronary artery disease) Status: Acute (5) Diabetes Status: Acute - Assessment and Plan (Free Text) Assessment: will likely need trach and peg if not exubatable cont empiric iv rx for pneumonia
--- NOTE | 2017-10-14 13:28 | CP.PCM.PN ---
Subjective - Date & Time of Evaluation Date of Evaluation: 10/14/17 Time of Evaluation: 11:00 - Subjective Subjective: clinically same Objective - Vital Signs/Intake and Output Vital Signs (last 24 hours): Temp Pulse Resp BP Pulse Ox 97.5 F L 71 20 115/44 L 95 10/14/17 12:00 10/14/17 13:00 10/14/17 13:00 10/14/17 12:52 10/14/17 13:00 Intake and Output: 10/14/17 10/14/17 06:59 18:59 Intake Total 650 350 Output Total 530 265 Balance 120 85 - Medications Medications: Current Medications Enoxaparin Sodium (Lovenox) 40 mg SC DAILY [facility] Last Admin: 10/14/17 09:50 Dose: 40 mg Azithromycin 500 mg/ Sodium (Chloride) 250 mls @ 250 mls/hr IVPB DAILY@1600 JEFFERY PRN Reason: Protocol Last Admin: 10/13/17 16:00 Dose: 250 mls/hr Cefepime HCl (Maxipime Iv 1 Gm Premix) 1 gm in 50 mls @ 100 mls/hr IVPB Q12H JEFFERY PRN Reason: Protocol Last Admin: 10/14/17 12:22 Dose: 100 mls/hr Insulin Aspart (Novolog) 0 unit SC Q6 JEFFERY PRN Reason: Protocol Last Admin: 10/14/17 12:23 Dose: 2 unit Pantoprazole Sodium (Protonix Inj) 40 mg IVP DAILY [facility] Last Admin: 10/14/17 09:50 Dose: 40 mg - Labs Labs: 10/14/17 06:05 10/14/17 06:04 PT 12.6 SECONDS (9.7-12.2) H 10/10/17 12:02 INR 1.1 10/10/17 12:02 APTT 18 SECONDS (21-34) L 10/10/17 12:02 - Constitutional Appears: Well - Head Exam Head Exam: ATRAUMATIC, NORMAL INSPECTION, NORMOCEPHALIC - Eye Exam Eye Exam: EOMI, Normal appearance, PERRL Pupil Exam: NORMAL ACCOMODATION, PERRL - ENT Exam ENT Exam: Mucous Membranes Moist, Normal Exam - Neck Exam Neck Exam: Full ROM, Normal Inspection. absent: Lymphadenopathy - Respiratory Exam Respiratory Exam: Decreased Breath Sounds - Cardiovascular Exam Cardiovascular Exam: REGULAR RHYTHM, +S1, +S2 - GI/Abdominal Exam GI & Abdominal Exam: Soft, Diminished Bowel Sounds - Rectal Exam Rectal Exam: Deferred
--- NOTE | 2017-10-14 16:50 | CT ---
PROCEDURE: CT Chest without contrast HISTORY: Pleural Effusion COMPARISON: None. TECHNIQUE: Contiguous axial images were obtained through the chest without intravenous contrast enhancement. Sagittal and coronal reconstructions were performed. Radiation dose (DLP): 629.81 mGy-cm. This CT exam was performed using one or more of the following dose reduction techniques: Automated exposure control, adjustment of the mA and/or kV according to patient size, and/or use of iterative reconstruction technique. FINDINGS: LUNGS: Multifocal small airways disease throughout the right lung most extensively in the right middle lobe. Few patchy opacities noted the right lower lobe. Bilateral lower lobe segmental/ subsegmental atelectasis secondary to pleural effusions. No pulmonary mass. MEDIASTINUM: Unremarkable thoracic aorta. No aneurysm. Cardiomegaly. Permanent pacemaker. Main pulmonary artery unremarkable. No vascular congestion. No lymphadenopathy. Endotracheal tube tip noted 4 cm above the tracheal rayna. PLEURA: Moderate bilateral pleural effusion. No pneumothorax. BONES: No fracture. No destructive lesion. UPPER ABDOMEN: Percutaneous gastrostomy tube noted. OTHER FINDINGS: None. IMPRESSION: Bilateral moderate pleural effusion with lower lobe subsegmental/segmental atelectasis. Multifocal right lung small airways disease. Nonspecific. Possible infectious etiology. Endotracheal tube. Percutaneous gastrostomy tube. Permanent pacemaker. Cardiomegaly.
[2017-10-14] MEDS: Azithromycin 500 MG in Sodium Chloride 0.9% 250 ML IVPB SCH (17:00)
--- NOTE | 2017-10-14 17:34 | CP.CCUPN ---
<HarismatthewMumtaz - Last Filed: 10/14/17 17:30> CCU Subjective - Physician Review Subjective (Free Text): Patient seen and examined at bedside. Does not follow commands. Responds to painful stimuli. Currently on Ventilator with 40% FiO2 and 400ml Tidal Volume. CCU Objective - Vital Signs / Intake & Output Vital Signs (Last 4 hours): Vital Signs Temp Pulse Resp BP Pulse Ox 10/14/17 17:00 74 19 98 10/14/17 16:00 99.8 F H 76 20 98 10/14/17 15:52 77 16 141/57 L 98 10/14/17 15:00 73 20 96 10/14/17 14:52 75 20 128/49 L 98 10/14/17 14:00 79 22 99 10/14/17 13:52 77 20 129/51 L 99 Intake and Output (Last 8hrs): Intake & Output 10/14/17 10/14/17 10/14/17 06:59 14:59 22:59 Intake Total 450 400 400 Output Total 325 300 115 Balance 125 100 285 Weight 128 lb 7 oz 147 lb 14.883 oz Intake: Intake, IV Amount 150 50 250 Right Antecubital 150 50 250 Tube Feeding 300 350 150 Output: Urine 325 300 115 Urethral (Valladares) 325 300 115 Other: # Bowel Movements 1 - Physical Exam Head: Positive for: Atraumatic, Normocephalic Pupils: Positive for: PERRL Extroacular Muscles: Positive for: EOMI Conjunctiva: Positive for: Normal Mouth: Positive for: Dry Respiratory/Chest: Positive for: Clear to Auscultation, Decreased Breath Sounds (at bases) Cardiovascular: Positive for: Regular Rate and Rhythm Abdomen: Positive for: Normal Bowel Sounds. Negative for: Tenderness, Distention Upper Extremity: Positive for: Normal Inspection Lower Extremity: Positive for: Edema Skin: Negative for: Warm (wet) Psychiatric: Positive for: Alert. Negative for: Oriented x 3 - Medications Active Medications: Active Medications Generic Name Dose Route Start Last Admin Trade Name Freq PRN Reason Stop Dose Admin Enoxaparin Sodium 40 mg 10/11/17 11:15 10/14/17 09:50 Lovenox SC 40 mg DAILY JEFFERY Administration Azithromycin 500 mg/ Sodium 250 mls @ 250 mls/hr 10/10/17 16:00 10/14/17 17: 00 Chloride IVPB 250 mls/hr DAILY@1600 [facility] Administration Protocol Cefepime HCl 1 gm in 50 mls @ 100 mls/hr 10/14/17 12:00 10/14/17 12:22 Maxipime Iv 1 Gm Premix IVPB 100 mls/hr Q12H JEFFERY Administration Protocol Insulin Aspart 0 unit 10/10/17 18:00 10/14/17 12:23 Novolog SC 2 unit Q6 [facility] Administration Protocol Pantoprazole Sodium 40 mg 10/11/17 10:00 10/14/17 09:50 Protonix Inj IVP 40 mg DAILY JEFFERY Administration - Patient Studies Lab Studies: Microbiology Studies 10/10/17 11:45 Blood Culture - Preliminary Blood NO GROWTH AFTER 3 DAYS 10/10/17 12:15 Blood Culture - Preliminary Blood NO GROWTH AFTER 3 DAYS Lab Studies 10/14/17 10/14/17 10/14/17 Range/Units 11:24 06:05 06:04 WBC 8.7 (4.8-10.8) K/uL RBC 2.56 L (4.40-5.90) Mil/uL Hgb 8.1 L (12.0-18.0) g/dL Hct 23.8 L (35.0-51.0) % MCV 93.1 (80.0-94.0) fL MCH 31.6 H (27.0-31.0) pg MCHC 33.9 (33.0-37.0) g/dL RDW 15.7 H (11.5-14.5) % Plt Count 222 (130-400) K/uL MPV 8.0 (7.2-11.7) fL Neut % (Auto) 82.4 H (50.0-75.0) % Lymph % (Auto) 5.9 L (20.0-40.0) % [place] % (Auto) 8.5 (0.0-10.0) % Eos % (Auto) 2.6 (0.0-4.0) % Baso % (Auto) 0.6 (0.0-2.0) % Neut # (Auto) 7.2 H (1.8-7.0) K/uL Lymph # (Auto) 0.5 L (1.0-4.3) K/uL [place] # (Auto) 0.7 (0.0-0.8) K/uL Eos # (Auto) 0.2 (0.0-0.7) K/uL Baso # (Auto) 0.1 (0.0-0.2) K/uL Neutrophils % (Manual) 82 H (50-75) % Lymphocytes % (Manual) 4 L (20-40) % Monocytes % (Manual) 8 (0-10) % Eosinophils % (Manual) 5 H (0-4) % Basophils % (Manual) 1 (0-2) % Platelet Estimate Normal (NORMAL) Hypochromasia (manual) Slight Poikilocytosis (manual Slight Anisocytosis (manual) Slight Microcytosis (manual) Slight Macrocytosis (manual) Slight Target Cells Slight Evelyn Cells Slight Puncture Site pCO2 (35-45) mm/Hg pO2 (80-100) mm/Hg HCO3 (21-28) mmol/L ABG pH (7.35-7.45) ABG Total CO2 (22-28) mmol/L ABG O2 Saturation (95-98) % ABG Base Excess (-2.0-3.0) mmol/L ABG Hemoglobin (11.7-17.4) g/dL ABG Carboxyhemoglobin (0.5-1.5) % POC ABG HHb (Measured) (0.0-5.0) % ABG Methemoglobin (0.0-3.0) % Lyle Test A-a O2 Difference mm/Hg Respiratory Index Hgb O2 Saturation (95.0-98.0) % Vent Mode Mechanical Rate FiO2 % Tidal Volume PEEP Sodium 144 (132-148) mmol/L Potassium 3.6 (3.6-5.2) mmol/L Chloride 108 H (98-107) mmol/L Carbon Dioxide 28 (22-30) mmol/L Anion Gap 12 (10-20) BUN 27 H (9-20) mg/dL Creatinine 1.4 (0.8-1.5) mg/dL Est GFR ( Amer) 58 Est GFR (Non-Af Amer) 48 POC Glucose (mg/dL) 173 H (65-110) mg/dL Random Glucose 198 H (75-110) mg/dL Calcium 7.5 L (8.6-10.4) mg/dl Phosphorus 1.5 L (2.5-4.5) mg/dL Magnesium 2.0 (1.6-2.3) mg/dL Total Bilirubin 0.4 (0.2-1.3) mg/dL AST 54 (17-59) U/L ALT 42 (21-72) U/L Alkaline Phosphatase 180 H (38-126) U/L Total Protein 5.2 L (6.3-8.3) g/dL Albumin 2.4 L (3.5-5.0) g/dL Globulin 2.9 (2.2-3.9) gm/dL Albumin/Globulin Ratio 0.8 L (1.0-2.1) 10/14/17 10/14/17 10/13/17 Range/Units 05:21 05:00 23:30 WBC (4.8-10.8) K/uL RBC (4.40-5.90) Mil/uL Hgb (12.0-18.0) g/dL Hct (35.0-51.0) % MCV (80.0-94.0) fL MCH (27.0-31.0) pg MCHC (33.0-37.0) g/dL RDW (11.5-14.5) % Plt Count (130-400) K/uL MPV (7.2-11.7) fL Neut % (Auto) (50.0-75.0) % Lymph % (Auto) (20.0-40.0) % [place] % (Auto) (0.0-10.0) % Eos % (Auto) (0.0-4.0) % Baso % (Auto) (0.0-2.0) % Neut # (Auto) (1.8-7.0) K/uL Lymph # (Auto) (1.0-4.3) K/uL [place] # (Auto) (0.0-0.8) K/uL Eos # (Auto) (0.0-0.7) K/uL Baso # (Auto) (0.0-0.2) K/uL Neutrophils % (Manual) (50-75) % Lymphocytes % (Manual) (20-40) % Monocytes % (Manual) (0-10) % Eosinophils % (Manual) (0-4) % Basophils % (Manual) (0-2) % Platelet Estimate (NORMAL) Hypochromasia (manual) Poikilocytosis (manual Anisocytosis (manual) Microcytosis (manual) Macrocytosis (manual) Target Cells Evelyn Cells Puncture Site Rr pCO2 37 (35-45) mm/Hg pO2 93 (80-100) mm/Hg HCO3 27.9 (21-28) mmol/L ABG pH 7.48 H (7.35-7.45) ABG Total CO2 28.7 H (22-28) mmol/L ABG O2 Saturation 99.3 H (95-98) % ABG Base Excess 3.8 H (-2.0-3.0) mmol/L ABG Hemoglobin 7.8 L (11.7-17.4) g/dL ABG Carboxyhemoglobin 1.7 H (0.5-1.5) % POC ABG HHb (Measured) 0.7 (0.0-5.0) % ABG Methemoglobin 0.6 (0.0-3.0) % Lyle Test Pos A-a O2 Difference 146.0 mm/Hg Respiratory Index 1.6 Hgb O2 Saturation 97.0 (95.0-98.0) % Vent Mode Prvc Mechanical Rate 12 FiO2 40.0 % Tidal Volume 400 PEEP 5 Sodium (132-148) mmol/L Potassium (3.6-5.2) mmol/L Chloride (98-107) mmol/L Carbon Dioxide (22-30) mmol/L Anion Gap (10-20) BUN (9-20) mg/dL Creatinine (0.8-1.5) mg/dL Est GFR ( Amer) Est GFR (Non-Af Amer) POC Glucose (mg/dL) 233 H 254 H (65-110) mg/dL Random Glucose (75-110) mg/dL Calcium (8.6-10.4) mg/dl Phosphorus (2.5-4.5) mg/dL Magnesium (1.6-2.3) mg/dL Total Bilirubin (0.2-1.3) mg/dL AST (17-59) U/L ALT (21-72) U/L Alkaline Phosphatase (38-126) U/L Total Protein (6.3-8.3) g/dL Albumin (3.5-5.0) g/dL Globulin (2.2-3.9) gm/dL Albumin/Globulin Ratio (1.0-2.1) 10/13/17 Range/Units 17:38 WBC (4.8-10.8) K/uL RBC (4.40-5.90) Mil/uL Hgb (12.0-18.0) g/dL Hct (35.0-51.0) % MCV (80.0-94.0) fL MCH (27.0-31.0) pg MCHC (33.0-37.0) g/dL RDW (11.5-14.5) % Plt Count (130-400) K/uL MPV (7.2-11.7) fL Neut % (Auto) (50.0-75.0) % Lymph % (Auto) (20.0-40.0) % [place] % (Auto) (0.0-10.0) % Eos % (Auto) (0.0-4.0) % Baso % (Auto) (0.0-2.0) % Neut # (Auto) (1.8-7.0) K/uL Lymph # (Auto) (1.0-4.3) K/uL [place] # (Auto) (0.0-0.8) K/uL Eos # (Auto) (0.0-0.7) K/uL Baso # (Auto) (0.0-0.2) K/uL Neutrophils % (Manual) (50-75) % Lymphocytes % (Manual) (20-40) % Monocytes % (Manual) (0-10) % Eosinophils % (Manual) (0-4) % Basophils % (Manual) (0-2) % Platelet Estimate (NORMAL) Hypochromasia (manual) Poikilocytosis (manual Anisocytosis (manual) Microcytosis (manual) Macrocytosis (manual) Target Cells Evelyn Cells Puncture Site pCO2 (35-45) mm/Hg pO2 (80-100) mm/Hg HCO3 (21-28) mmol/L ABG pH (7.35-7.45) ABG Total CO2 (22-28) mmol/L ABG O2 Saturation (95-98) % ABG Base Excess (-2.0-3.0) mmol/L ABG Hemoglobin (11.7-17.4) g/dL ABG Carboxyhemoglobin (0.5-1.5) % POC ABG HHb (Measured) (0.0-5.0) % ABG Methemoglobin (0.0-3.0) % Lyle Test A-a O2 Difference mm/Hg Respiratory Index Hgb O2 Saturation (95.0-98.0) % Vent Mode Mechanical Rate FiO2 % Tidal Volume PEEP Sodium (132-148) mmol/L Potassium (3.6-5.2) mmol/L Chloride (98-107) mmol/L Carbon Dioxide (22-30) mmol/L Anion Gap (10-20) BUN (9-20) mg/dL Creatinine (0.8-1.5) mg/dL Est GFR ( Amer) Est GFR (Non-Af Amer) POC Glucose (mg/dL) 207 H (65-110) mg/dL Random Glucose (75-110) mg/dL Calcium (8.6-10.4) mg/dl Phosphorus (2.5-4.5) mg/dL Magnesium (1.6-2.3) mg/dL Total Bilirubin (0.2-1.3) mg/dL AST (17-59) U/L ALT (21-72) U/L Alkaline Phosphatase (38-126) U/L Total Protein (6.3-8.3) g/dL Albumin (3.5-5.0) g/dL Globulin (2.2-3.9) gm/dL Albumin/Globulin Ratio (1.0-2.1) Laboratory Results - last 24 hr 10/13/17 10/13/17 10/14/17 17:38 23:30 05:00 WBC RBC Hgb Hct MCV MCH MCHC RDW Plt Count MPV Neut % (Auto) Lymph % (Auto) [place] % (Auto) Eos % (Auto) Baso % (Auto) Neut # (Auto) Lymph # (Auto) [place] # (Auto) Eos # (Auto) Baso # (Auto) Neutrophils % (Manual) Lymphocytes % (Manual) Monocytes % (Manual) Eosinophils % (Manual) Basophils % (Manual) Platelet Estimate Hypochromasia (manual) Poikilocytosis (manual Anisocytosis (manual) Microcytosis (manual) Macrocytosis (manual) Target Cells Castell Cells Puncture Site pCO2 pO2 HCO3 ABG pH ABG Total CO2 ABG O2 Saturation ABG Base Excess ABG Hemoglobin ABG Carboxyhemoglobin POC ABG HHb (Measured) ABG Methemoglobin Lyle Test A-a O2 Difference Respiratory Index Hgb O2 Saturation Vent Mode Mechanical Rate FiO2 Tidal Volume PEEP Sodium Potassium Chloride Carbon Dioxide Anion Gap BUN Creatinine Est GFR ( Amer) Est GFR (Non-Af Amer) POC Glucose (mg/dL) 207 H 254 H 233 H Random Glucose Calcium Phosphorus Magnesium Total Bilirubin AST ALT Alkaline Phosphatase Total Protein Albumin Globulin Albumin/Globulin Ratio 10/14/17 10/14/17 10/14/17 05:21 06:04 06:05 WBC 8.7 RBC 2.56 L Hgb 8.1 L Hct 23.8 L MCV 93.1 MCH 31.6 H MCHC 33.9 RDW 15.7 H Plt Count 222 MPV 8.0 Neut % (Auto) 82.4 H Lymph % (Auto) 5.9 L [place] % (Auto) 8.5 Eos % (Auto) 2.6 Baso % (Auto) 0.6 Neut # (Auto) 7.2 H Lymph # (Auto) 0.5 L [place] # (Auto) 0.7 Eos # (Auto) 0.2 Baso # (Auto) 0.1 Neutrophils % (Manual) 82 H Lymphocytes % (Manual) 4 L Monocytes % (Manual) 8 Eosinophils % (Manual) 5 H Basophils % (Manual) 1 Platelet Estimate Normal Hypochromasia (manual) Slight Poikilocytosis (manual Slight Anisocytosis (manual) Slight Microcytosis (manual) Slight Macrocytosis (manual) Slight Target Cells Slight Evelyn Cells Slight Puncture Site Rr pCO2 37 pO2 93 HCO3 27.9 ABG pH 7.48 H ABG Total CO2 28.7 H ABG O2 Saturation 99.3 H ABG Base Excess 3.8 H ABG Hemoglobin 7.8 L ABG Carboxyhemoglobin 1.7 H POC ABG HHb (Measured) 0.7 ABG Methemoglobin 0.6 Lyle Test Pos A-a O2 Difference 146.0 Respiratory Index 1.6 Hgb O2 Saturation 97.0 Vent Mode Prvc Mechanical Rate 12 FiO2 40.0 Tidal Volume 400 PEEP 5 Sodium 144 Potassium 3.6 Chloride 108 H Carbon Dioxide 28 Anion Gap 12 BUN 27 H Creatinine 1.4 Est GFR ( Amer) 58 Est GFR (Non-Af Amer) 48 POC Glucose (mg/dL) Random Glucose 198 H Calcium 7.5 L Phosphorus 1.5 L Magnesium 2.0 Total Bilirubin 0.4 AST 54 ALT 42 Alkaline Phosphatase 180 H Total Protein 5.2 L Albumin 2.4 L Globulin 2.9 Albumin/Globulin Ratio 0.8 L 10/14/17 11:24 WBC RBC Hgb Hct MCV MCH MCHC RDW Plt Count MPV Neut % (Auto) Lymph % (Auto) [place] % (Auto) Eos % (Auto) Baso % (Auto) Neut # (Auto) Lymph # (Auto) [place] # (Auto) Eos # (Auto) Baso # (Auto) Neutrophils % (Manual) Lymphocytes % (Manual) Monocytes % (Manual) Eosinophils % (Manual) Basophils % (Manual) Platelet Estimate Hypochromasia (manual) Poikilocytosis (manual Anisocytosis (manual) Microcytosis (manual) Macrocytosis (manual) Target Cells Castell Cells Puncture Site pCO2 pO2 HCO3 ABG pH ABG Total CO2 ABG O2 Saturation ABG Base Excess ABG Hemoglobin ABG Carboxyhemoglobin POC ABG HHb (Measured) ABG Methemoglobin Lyle Test A-a O2 Difference Respiratory Index Hgb O2 Saturation Vent Mode Mechanical Rate FiO2 Tidal Volume PEEP Sodium Potassium Chloride Carbon Dioxide Anion Gap BUN Creatinine Est GFR ( Amer) Est GFR (Non-Af Amer) POC Glucose (mg/dL) 173 H Random Glucose Calcium Phosphorus Magnesium Total Bilirubin AST ALT Alkaline Phosphatase Total Protein Albumin Globulin Albumin/Globulin Ratio Fingerstick Blood Sugar Results: 173 Review of Systems - Review of Systems Systems not reviewed;Unavailable: Intubated Critical Care Progress Note - Nutrition Nutrition: Nutrition Category Date Time Status NPO Diet [DIET] Diets 10/10/17 Dinner Active Assessment/Plan - Assessment and Plan (Free Text) Assessment: 87 year old male with PMHx CAD, pacemaker, DM2, CHF, HLD, dementia who presented from the care home in respiratory arrest. 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 No acute hemmorahge. Cardio A: CAD, CHF Hold Home Antihypertensives Pulm A: Aspiration PNA AB.67/21/179/28 On Vent. 400ml TV and 40% FiO2 CXR (10/13/17): Bilateral effusions and bibasilar atelectasis and/or infiltrates Chest CT (10/14/17): Bilateral moderate pleural effusion with lower lobe subsegmental/segmental atelectasis. Multifocal right lung small airways disease. Nonspecific. Possible infectious etiology. Endotracheal tube. Percutaneous gastrostomy tube. Permanent pacemaker. Cardiomegaly. GI A: HLD Consider Restarting Home Statins : I/O: 800/415 Nephro/electrolytes Neutra-Phos 1 pkt PO BID JEFFERY ID Afebrile, No Leukocytosis Blood, Urine, and Nares Cultures NEGATIVE Cont. Emperic Antibiotic Coverage Vancomycin 1gm Daily Cefepime 1gm Q12H Azithromycin 500mg Daily Consider ProCal Endo A: DM II Novolog Integumentary A: Candidiasis in perianal and Abd. Folds Nystatin Powder. MSK PT/OT Prophylaxis Lovenox SC Daily Protonix IV Daily Tube Feeding (Vital 1.2) Dispo: Case management referral for LTAC. Will F/U with Case management. Patient seen and discussed with ICU Attending Mumtaz Carlton, PGY-1 <Merlin Marques S - Last Filed: 10/14/17 17:51> CCU Objective - Vital Signs / Intake & Output Vital Signs (Last 4 hours): Vital Signs Temp Pulse Resp BP Pulse Ox 10/14/17 17:00 74 19 98 10/14/17 16:00 99.8 F H 76 20 98 10/14/17 15:52 77 16 141/57 L 98 10/14/17 15:00 73 20 96 10/14/17 14:52 75 20 128/49 L 98 10/14/17 14:00 79 22 99 10/14/17 13:52 77 20 129/51 L 99 Intake and Output (Last 8hrs): Intake & Output 10/14/17 10/14/17 10/14/17 06:59 14:59 22:59 Intake Total 450 400 400 Output Total 325 300 115 Balance 125 100 285 Weight 128 lb 7 oz 147 lb 14.883 oz Intake: Intake, IV Amount 150 50 250 Right Antecubital 150 50 250 Tube Feeding 300 350 150 Output: Urine 325 300 115 Urethral (Valladares) 325 300 115 Other: # Bowel Movements 1 - Medications Active Medications: Active Medications Generic Name Dose Route Start Last Admin Trade Name Freq PRN Reason Stop Dose Admin Enoxaparin Sodium 40 mg 10/11/17 11:15 10/14/17 09:50 Lovenox SC 40 mg DAILY JEFFERY Administration Azithromycin 500 mg/ Sodium 250 mls @ 250 mls/hr 10/10/17 16:00 10/14/17 17: 00 Chloride IVPB 250 mls/hr DAILY@1600 JEFFERY Administration Protocol Cefepime HCl 1 gm in 50 mls @ 100 mls/hr 10/14/17 12:00 10/14/17 12:22 Maxipime Iv 1 Gm Premix IVPB 100 mls/hr Q12H JEFFERY Administration Protocol Insulin Aspart 0 unit 10/10/17 18:00 10/14/17 12:23 Novolog SC 2 unit Q6 JEFFERY Administration Protocol Pantoprazole Sodium 40 mg 10/11/17 10:00 10/14/17 09:50 Protonix Inj IVP 40 mg DAILY JEFFERY Administration - Patient Studies Lab Studies: Microbiology Studies 10/10/17 11:45 Blood Culture - Preliminary Blood NO GROWTH AFTER 3 DAYS 10/10/17 12:15 Blood Culture - Preliminary Blood NO GROWTH AFTER 3 DAYS Lab Studies 10/14/17 10/14/17 10/14/17 Range/Units 11:24 06:05 06:04 WBC 8.7 (4.8-10.8) K/uL RBC 2.56 L (4.40-5.90) Mil/uL Hgb 8.1 L (12.0-18.0) g/dL Hct 23.8 L (35.0-51.0) % MCV 93.1 (80.0-94.0) fL MCH 31.6 H (27.0-31.0) pg MCHC 33.9 (33.0-37.0) g/dL RDW 15.7 H (11.5-14.5) % Plt Count 222 (130-400) K/uL MPV 8.0 (7.2-11.7) fL Neut % (Auto) 82.4 H (50.0-75.0) % Lymph % (Auto) 5.9 L (20.0-40.0) % [place] % (Auto) 8.5 (0.0-10.0) % Eos % (Auto) 2.6 (0.0-4.0) % Baso % (Auto) 0.6 (0.0-2.0) % Neut # (Auto) 7.2 H (1.8-7.0) K/uL Lymph # (Auto) 0.5 L (1.0-4.3) K/uL [place] # (Auto) 0.7 (0.0-0.8) K/uL Eos # (Auto) 0.2 (0.0-0.7) K/uL Baso # (Auto) 0.1 (0.0-0.2) K/uL Neutrophils % (Manual) 82 H (50-75) % Lymphocytes % (Manual) 4 L (20-40) % Monocytes % (Manual) 8 (0-10) % Eosinophils % (Manual) 5 H (0-4) % Basophils % (Manual) 1 (0-2) % Platelet Estimate Normal (NORMAL) Hypochromasia (manual) Slight Poikilocytosis (manual Slight Anisocytosis (manual) Slight Microcytosis (manual) Slight Macrocytosis (manual) Slight Target Cells Slight Castell Cells Slight Puncture Site pCO2 (35-45) mm/Hg pO2 (80-100) mm/Hg HCO3 (21-28) mmol/L ABG pH (7.35-7.45) ABG Total CO2 (22-28) mmol/L ABG O2 Saturation (95-98) % ABG Base Excess (-2.0-3.0) mmol/L ABG Hemoglobin (11.7-17.4) g/dL ABG Carboxyhemoglobin (0.5-1.5) % POC ABG HHb (Measured) (0.0-5.0) % ABG Methemoglobin (0.0-3.0) % Lyle Test A-a O2 Difference mm/Hg Respiratory Index Hgb O2 Saturation (95.0-98.0) % Vent Mode Mechanical Rate FiO2 % Tidal Volume PEEP Sodium 144 (132-148) mmol/L Potassium 3.6 (3.6-5.2) mmol/L Chloride 108 H (98-107) mmol/L Carbon Dioxide 28 (22-30) mmol/L Anion Gap 12 (10-20) BUN 27 H (9-20) mg/dL Creatinine 1.4 (0.8-1.5) mg/dL Est GFR ( Amer) 58 Est GFR (Non-Af Amer) 48 POC Glucose (mg/dL) 173 H (65-110) mg/dL Random Glucose 198 H (75-110) mg/dL Calcium 7.5 L (8.6-10.4) mg/dl Phosphorus 1.5 L (2.5-4.5) mg/dL Magnesium 2.0 (1.6-2.3) mg/dL Total Bilirubin 0.4 (0.2-1.3) mg/dL AST 54 (17-59) U/L ALT 42 (21-72) U/L Alkaline Phosphatase 180 H (38-126) U/L Total Protein 5.2 L (6.3-8.3) g/dL Albumin 2.4 L (3.5-5.0) g/dL Globulin 2.9 (2.2-3.9) gm/dL Albumin/Globulin Ratio 0.8 L (1.0-2.1) 10/14/17 10/14/17 10/13/17 Range/Units 05:21 05:00 23:30 WBC (4.8-10.8) K/uL RBC (4.40-5.90) Mil/uL Hgb (12.0-18.0) g/dL Hct (35.0-51.0) % MCV (80.0-94.0) fL MCH (27.0-31.0) pg MCHC (33.0-37.0) g/dL RDW (11.5-14.5) % Plt Count (130-400) K/uL MPV (7.2-11.7) fL Neut % (Auto) (50.0-75.0) % Lymph % (Auto) (20.0-40.0) % [place] % (Auto) (0.0-10.0) % Eos % (Auto) (0.0-4.0) % Baso % (Auto) (0.0-2.0) % Neut # (Auto) (1.8-7.0) K/uL Lymph # (Auto) (1.0-4.3) K/uL [place] # (Auto) (0.0-0.8) K/uL Eos # (Auto) (0.0-0.7) K/uL Baso # (Auto) (0.0-0.2) K/uL Neutrophils % (Manual) (50-75) % Lymphocytes % (Manual) (20-40) % Monocytes % (Manual) (0-10) % Eosinophils % (Manual) (0-4) % Basophils % (Manual) (0-2) % Platelet Estimate (NORMAL) Hypochromasia (manual) Poikilocytosis (manual Anisocytosis (manual) Microcytosis (manual) Macrocytosis (manual) Target Cells Evelyn Cells Puncture Site Rr pCO2 37 (35-45) mm/Hg pO2 93 (80-100) mm/Hg HCO3 27.9 (21-28) mmol/L ABG pH 7.48 H (7.35-7.45) ABG Total CO2 28.7 H (22-28) mmol/L ABG O2 Saturation 99.3 H (95-98) % ABG Base Excess 3.8 H (-2.0-3.0) mmol/L ABG Hemoglobin 7.8 L (11.7-17.4) g/dL ABG Carboxyhemoglobin 1.7 H (0.5-1.5) % POC ABG HHb (Measured) 0.7 (0.0-5.0) % ABG Methemoglobin 0.6 (0.0-3.0) % Lyle Test Pos A-a O2 Difference 146.0 mm/Hg Respiratory Index 1.6 Hgb O2 Saturation 97.0 (95.0-98.0) % Vent Mode Prvc Mechanical Rate 12 FiO2 40.0 % Tidal Volume 400 PEEP 5 Sodium (132-148) mmol/L Potassium (3.6-5.2) mmol/L Chloride (98-107) mmol/L Carbon Dioxide (22-30) mmol/L Anion Gap (10-20) BUN (9-20) mg/dL Creatinine (0.8-1.5) mg/dL Est GFR ( Amer) Est GFR (Non-Af Amer) POC Glucose (mg/dL) 233 H 254 H (65-110) mg/dL Random Glucose (75-110) mg/dL Calcium (8.6-10.4) mg/dl Phosphorus (2.5-4.5) mg/dL Magnesium (1.6-2.3) mg/dL Total Bilirubin (0.2-1.3) mg/dL AST (17-59) U/L ALT (21-72) U/L Alkaline Phosphatase (38-126) U/L Total Protein (6.3-8.3) g/dL Albumin (3.5-5.0) g/dL Globulin (2.2-3.9) gm/dL Albumin/Globulin Ratio (1.0-2.1) Laboratory Results - last 24 hr 10/13/17 10/14/17 10/14/17 23:30 05:00 05:21 WBC RBC Hgb Hct MCV MCH MCHC RDW Plt Count MPV Neut % (Auto) Lymph % (Auto) [place] % (Auto) Eos % (Auto) Baso % (Auto) Neut # (Auto) Lymph # (Auto) [place] # (Auto) Eos # (Auto) Baso # (Auto) Neutrophils % (Manual) Lymphocytes % (Manual) Monocytes % (Manual) Eosinophils % (Manual) Basophils % (Manual) Platelet Estimate Hypochromasia (manual) Poikilocytosis (manual Anisocytosis (manual) Microcytosis (manual) Macrocytosis (manual) Target Cells Evelyn Cells Puncture Site Rr pCO2 37 pO2 93 HCO3 27.9 ABG pH 7.48 H ABG Total CO2 28.7 H ABG O2 Saturation 99.3 H ABG Base Excess 3.8 H ABG Hemoglobin 7.8 L ABG Carboxyhemoglobin 1.7 H POC ABG HHb (Measured) 0.7 ABG Methemoglobin 0.6 Lyle Test Pos A-a O2 Difference 146.0 Respiratory Index 1.6 Hgb O2 Saturation 97.0 Vent Mode Prvc Mechanical Rate 12 FiO2 40.0 Tidal Volume 400 PEEP 5 Sodium Potassium Chloride Carbon Dioxide Anion Gap BUN Creatinine Est GFR ( Amer) Est GFR (Non-Af Amer) POC Glucose (mg/dL) 254 H 233 H Random Glucose Calcium Phosphorus Magnesium Total Bilirubin AST ALT Alkaline Phosphatase Total Protein Albumin Globulin Albumin/Globulin Ratio 10/14/17 10/14/17 10/14/17 06:04 06:05 11:24 WBC 8.7 RBC 2.56 L Hgb 8.1 L Hct 23.8 L MCV 93.1 MCH 31.6 H MCHC 33.9 RDW 15.7 H Plt Count 222 MPV 8.0 Neut % (Auto) 82.4 H Lymph % (Auto) 5.9 L [place] % (Auto) 8.5 Eos % (Auto) 2.6 Baso % (Auto) 0.6 Neut # (Auto) 7.2 H Lymph # (Auto) 0.5 L [place] # (Auto) 0.7 Eos # (Auto) 0.2 Baso # (Auto) 0.1 Neutrophils % (Manual) 82 H Lymphocytes % (Manual) 4 L Monocytes % (Manual) 8 Eosinophils % (Manual) 5 H Basophils % (Manual) 1 Platelet Estimate Normal Hypochromasia (manual) Slight Poikilocytosis (manual Slight Anisocytosis (manual) Slight Microcytosis (manual) Slight Macrocytosis (manual) Slight Target Cells Slight Evelyn Cells Slight Puncture Site pCO2 pO2 HCO3 ABG pH ABG Total CO2 ABG O2 Saturation ABG Base Excess ABG Hemoglobin ABG Carboxyhemoglobin POC ABG HHb (Measured) ABG Methemoglobin Lyle Test A-a O2 Difference Respiratory Index Hgb O2 Saturation Vent Mode Mechanical Rate FiO2 Tidal Volume PEEP Sodium 144 Potassium 3.6 Chloride 108 H Carbon Dioxide 28 Anion Gap 12 BUN 27 H Creatinine 1.4 Est GFR ( Amer) 58 Est GFR (Non-Af Amer) 48 POC Glucose (mg/dL) 173 H Random Glucose 198 H Calcium 7.5 L Phosphorus 1.5 L Magnesium 2.0 Total Bilirubin 0.4 AST 54 ALT 42 Alkaline Phosphatase 180 H Total Protein 5.2 L Albumin 2.4 L Globulin 2.9 Albumin/Globulin Ratio 0.8 L Critical Care Progress Note - Nutrition Nutrition: Nutrition Category Date Time Status NPO Diet [DIET] Diets 10/10/17 Dinner Active Assessment/Plan (1) Respiratory arrest Current Visit: Yes Status: Acute Comment: Tolerating CPAP Continue weaning Continue IV antibiotics Will need thoracentesis Continue present care including feeding (2) Pneumonia Current Visit: No Status: Acute (3) Dementia Current Visit: No Status: Chronic Attending/Attestation - Attestation I have personally seen and examined this patient.: Yes I have fully participated in the care of the patient.: Yes I have reviewed all pertinent clinical information: Yes Notes (Text): 10/14/17 17:50 patient seen and examined in the intensive care unit. Tolerating CPAP No change in mental status CAT scan of the chest consistent with bilateral pleural effusions and pneumonia Continue antibiotics Continue feeding
[2017-10-15] MEDS: Cefepime IV 1 gm in Dextrose 1 GM/50 ML BAG IVPB SCH ×2 (00:18→12:29)
[2017-10-15] MEDS: (Novolog) Insulin Aspart, Recombinant 100 u/ml 10 ml vial SC SCH ×4 (00:19→17:55)
[2017-10-15 05:33] LABS: ABG ALLEN TEST POS; ARTERIAL BLOOD GAS HCO3 30.2 mmol/L (21-28); ARTERIAL BLOOD GAS O2 SAT 98.7 % (95-98); ARTERIAL BLOOD GAS PCO2 39 mm/Hg (35-45); ARTERIAL BLOOD GAS PO2 89 mm/Hg (80-100); ARTERIAL BLOOD GAS TCO2 31.6 mmol/L (22-28)
[2017-10-15 06:25] LABS: BASO # 0.1 K/uL (0.0-0.2); BASO % 0.9 % (0.0-2.0); EOS # 0.2 K/uL (0.0-0.7); EOS % 2.8 % (0.0-4.0); HEMOGLOBIN 8.3 g/dL (12.0-18.0); LYMPH # 0.5 K/uL (1.0-4.3); LYMPH % 6.5 % (20.0-40.0); MEAN CELL VOLUME 92.4 fL (80.0-94.0); MEAN CORPUSCULAR HEMOGLOBIN 31.5 pg (27.0-31.0); MEAN CORPUSCULAR HGB CONC 34.1 g/dL (33.0-37.0); MEAN PLATELET VOLUME 7.6 fL (7.2-11.7); MONO # 0.7 K/uL (0.0-0.8); MONO % 8.8 % (0.0-10.0); NEUT # 6.8 K/uL (1.8-7.0); NRBC % 0.1 % (0.0-2.0); PLATELET COUNT 225 K/uL (130-400); RBC 2.65 Mil/uL (4.40-5.90); RED CELL DISTRIBUTION WIDTH 16.2 % (11.5-14.5); WHITE BLOOD COUNT 8.4 K/uL (4.8-10.8)
[2017-10-15 06:38] LABS: ALB/GLOB RATIO 0.8 (1.0-2.1); ALBUMIN 2.5 g/dL (3.5-5.0); ALT/SGPT 32 U/L (21-72); AST/SGOT 48 U/L (17-59); BLOOD UREA NITROGEN 24 mg/dL (9-20); CALCIUM 7.7 mg/dl (8.6-10.4); GFR AFRICAN-AMERICAN > 60; GFR NON-AFRICAN AMERICAN 52
[2017-10-15 08:17] LABS: ANISOCYTOSIS SLIGHT; BANDS 2 % (0-2); BURR CELLS SLIGHT; EOSINOPHIL 3 % (0-4); HYPOCHROMIC SLIGHT; LYMPHOCYTE 5 % (20-40); MONOCYTE 6 % (0-10); NEUTROPHIL 84 % (50-75); OVALOCYTES SLIGHT; PLATELET ESTIMATE NORMAL (NORMAL); POIKILOCYTOSIS SLIGHT; TOTAL CELLS COUNTED 100
[2017-10-15] MEDS: Enoxaparin 40 mg Syringe SC SCH (09:05)
--- NOTE | 2017-10-15 09:19 | RAD ---
HISTORY: SOB COMPARISON: Chest radiograph dated 10/14/2017 FINDINGS: LUNGS: Pulmonary vascular congestion. Bibasilar atelectasis. PLEURA: Small bilateral layering pleural effusions. No pneumothorax apparent. CARDIOVASCULAR: Left subclavian access pacemaker redemonstrated. Atherosclerotic aortic calcifications. Cardiomediastinal silhouette unchanged. OSSEOUS STRUCTURES: No significant abnormalities. VISUALIZED UPPER ABDOMEN: Normal. OTHER FINDINGS: Endotracheal tube, unchanged. Right upper extremity PICC, unchanged. IMPRESSION: No significant interval change in pulmonary vascular congestion and small layering bilateral pleural effusions.
[2017-10-15] MEDS ORDERED: Potassium Phosphate 15 MMOLE in Sodium Chloride 0.9% 250 ML IVPB ONE (10:00)
--- NOTE | 2017-10-15 11:27 | CP.CCUPN ---
<Mumtaz Carlton - Last Filed: 10/15/17 11:24> CCU Subjective - Physician Review Subjective (Free Text): Patient seen and examined at bedside. Does not follow commands. Responds to painful stimuli. Switched to CPAP this morning and is tolerating. 10/15/17 11:25 CCU Objective - Vital Signs / Intake & Output Vital Signs (Last 4 hours): Vital Signs Temp Pulse Resp BP Pulse Ox 10/15/17 10:03 67 19 130/52 L 10/15/17 10:00 68 19 99 10/15/17 09:03 64 18 126/51 L 10/15/17 09:00 68 19 98 10/15/17 08:03 81 21 152/68 H 100 10/15/17 08:00 98.6 F 86 18 100 Intake and Output (Last 8hrs): Intake & Output 10/14/17 10/15/17 10/15/17 22:59 06:59 14:59 Intake Total 650 450 200 Output Total 295 245 105 Balance 355 205 95 Weight 128 lb 4.944 oz Intake: Intake, IV Amount 250 50 Right Antecubital 250 Right PICC 50 Tube Feeding 400 400 200 Output: Urine 295 245 105 Urethral (Valladares) 295 245 105 Other: # Bowel Movements 1 - Physical Exam Head: Positive for: Atraumatic, Normocephalic Pupils: Positive for: PERRL Extroacular Muscles: Positive for: EOMI Conjunctiva: Positive for: Normal Mouth: Positive for: Dry Respiratory/Chest: Positive for: Clear to Auscultation, Decreased Breath Sounds (at bases) Cardiovascular: Positive for: Regular Rate and Rhythm Abdomen: Positive for: Normal Bowel Sounds. Negative for: Tenderness, Distention Upper Extremity: Positive for: Normal Inspection Lower Extremity: Positive for: Edema Skin: Negative for: Warm (wet) Psychiatric: Positive for: Alert. Negative for: Oriented x 3 - Medications Active Medications: Active Medications Generic Name Dose Route Start Last Admin Trade Name Freq PRN Reason Stop Dose Admin Enoxaparin Sodium 40 mg 10/11/17 11:15 10/15/17 09:05 Lovenox SC 40 mg DAILY JEFFERY Administration Azithromycin 500 mg/ Sodium 250 mls @ 250 mls/hr 10/10/17 16:00 10/14/17 17: 00 Chloride IVPB 250 mls/hr DAILY@1600 JEFFERY Administration Protocol Cefepime HCl 1 gm in 50 mls @ 100 mls/hr 10/14/17 12:00 10/15/17 00:18 Maxipime Iv 1 Gm Premix IVPB 100 mls/hr Q12H JEFFERY Administration Protocol Potassium Phosphate 15 mmole/ 255 mls @ 42.5 mls/hr 10/15/17 10:00 10/15/17 10:56 Sodium Chloride IVPB 10/15/17 15:59 42.5 mls/hr ONCE ONE Administration Insulin Aspart 0 unit 10/10/17 18:00 10/15/17 06:22 Novolog SC 4 unit Q6 JEFFERY Administration Protocol Pantoprazole Sodium 40 mg 10/11/17 10:00 10/15/17 09:05 Protonix Inj IVP 40 mg DAILY JEFFERY Administration - Patient Studies Lab Studies: Microbiology Studies 10/10/17 11:45 Blood Culture - Preliminary Blood NO GROWTH AFTER 4 DAYS 10/10/17 12:15 Blood Culture - Preliminary Blood NO GROWTH AFTER 4 DAYS Lab Studies 10/15/17 10/15/17 10/15/17 Range/Units 06:30 06:14 06:14 WBC 8.4 (4.8-10.8) K/uL RBC 2.65 L (4.40-5.90) Mil/uL Hgb 8.3 L (12.0-18.0) g/dL Hct 24.5 L (35.0-51.0) % MCV 92.4 (80.0-94.0) fL MCH 31.5 H (27.0-31.0) pg MCHC 34.1 (33.0-37.0) g/dL RDW 16.2 H (11.5-14.5) % Plt Count 225 (130-400) K/uL MPV 7.6 (7.2-11.7) fL Neut % (Auto) 81.0 H (50.0-75.0) % Lymph % (Auto) 6.5 L (20.0-40.0) % [place] % (Auto) 8.8 (0.0-10.0) % Eos % (Auto) 2.8 (0.0-4.0) % Baso % (Auto) 0.9 (0.0-2.0) % Neut # (Auto) 6.8 (1.8-7.0) K/uL Lymph # (Auto) 0.5 L (1.0-4.3) K/uL [place] # (Auto) 0.7 (0.0-0.8) K/uL Eos # (Auto) 0.2 (0.0-0.7) K/uL Baso # (Auto) 0.1 (0.0-0.2) K/uL Neutrophils % (Manual) 84 H (50-75) % Band Neutrophils % 2 (0-2) % Lymphocytes % (Manual) 5 L (20-40) % Monocytes % (Manual) 6 (0-10) % Eosinophils % (Manual) 3 (0-4) % Platelet Estimate Normal (NORMAL) Hypochromasia (manual) Slight Poikilocytosis (manual Slight Anisocytosis (manual) Slight Ovalocytes Slight Stanton Cells Slight Puncture Site pCO2 (35-45) mm/Hg pO2 (80-100) mm/Hg HCO3 (21-28) mmol/L ABG pH (7.35-7.45) ABG Total CO2 (22-28) mmol/L ABG O2 Saturation (95-98) % ABG Base Excess (-2.0-3.0) mmol/L Lyle Test ABG Potassium (3.6-5.2) mmol/L A-a O2 Difference mm/Hg Respiratory Index Sodium 145 (132-148) mmol/l Chloride 109 H (98-107) mmol/L Glucose (75-110) mg/dl Lactate (0.7-2.1) mmol/L Vent Mode Mechanical Rate FiO2 % Tidal Volume PEEP Potassium 3.7 (3.6-5.2) mmol/L Carbon Dioxide 30 (22-30) mmol/L Anion Gap 10 (10-20) BUN 24 H (9-20) mg/dL Creatinine 1.3 (0.8-1.5) mg/dL Est GFR ( Amer) > 60 Est GFR (Non-Af Amer) 52 POC Glucose (mg/dL) (65-110) mg/dL Random Glucose 251 H (75-110) mg/dL Calcium 7.7 L (8.6-10.4) mg/dl Phosphorus 1.6 L (2.5-4.5) mg/dL Magnesium 2.0 (1.6-2.3) mg/dL Total Bilirubin 0.5 (0.2-1.3) mg/dL AST 48 (17-59) U/L ALT 32 (21-72) U/L Alkaline Phosphatase 177 H (38-126) U/L Total Protein 5.6 L (6.3-8.3) g/dL Albumin 2.5 L (3.5-5.0) g/dL Globulin 3.1 (2.2-3.9) gm/dL Albumin/Globulin Ratio 0.8 L (1.0-2.1) Arterial Blood Potassium (3.6-5.2) mmol/L 10/15/17 10/15/17 10/15/17 Range/Units 05:27 05:26 00:04 WBC (4.8-10.8) K/uL RBC (4.40-5.90) Mil/uL Hgb (12.0-18.0) g/dL Hct (35.0-51.0) % MCV (80.0-94.0) fL MCH (27.0-31.0) pg MCHC (33.0-37.0) g/dL RDW (11.5-14.5) % Plt Count (130-400) K/uL MPV (7.2-11.7) fL Neut % (Auto) (50.0-75.0) % Lymph % (Auto) (20.0-40.0) % [place] % (Auto) (0.0-10.0) % Eos % (Auto) (0.0-4.0) % Baso % (Auto) (0.0-2.0) % Neut # (Auto) (1.8-7.0) K/uL Lymph # (Auto) (1.0-4.3) K/uL [place] # (Auto) (0.0-0.8) K/uL Eos # (Auto) (0.0-0.7) K/uL Baso # (Auto) (0.0-0.2) K/uL Neutrophils % (Manual) (50-75) % Band Neutrophils % (0-2) % Lymphocytes % (Manual) (20-40) % Monocytes % (Manual) (0-10) % Eosinophils % (Manual) (0-4) % Platelet Estimate (NORMAL) Hypochromasia (manual) Poikilocytosis (manual Anisocytosis (manual) Ovalocytes Stanton Cells Puncture Site Rr pCO2 39 (35-45) mm/Hg pO2 89 (80-100) mm/Hg HCO3 30.2 H (21-28) mmol/L ABG pH 7.50 H (7.35-7.45) ABG Total CO2 31.6 H (22-28) mmol/L ABG O2 Saturation 98.7 H (95-98) % ABG Base Excess 6.7 H (-2.0-3.0) mmol/L Lyle Test Pos ABG Potassium 3.5 L (3.6-5.2) mmol/L A-a O2 Difference 147.0 mm/Hg Respiratory Index 1.7 Sodium 144.0 (132-148) mmol/l Chloride 112.0 H (98-107) mmol/L Glucose 295 H (75-110) mg/dl Lactate 0.8 (0.7-2.1) mmol/L Vent Mode Prvc Mechanical Rate 12 FiO2 40.0 % Tidal Volume 400 PEEP 5 Potassium (3.6-5.2) mmol/L Carbon Dioxide (22-30) mmol/L Anion Gap (10-20) BUN (9-20) mg/dL Creatinine (0.8-1.5) mg/dL Est GFR ( Amer) Est GFR (Non-Af Amer) POC Glucose (mg/dL) 266 H 304 H (65-110) mg/dL Random Glucose (75-110) mg/dL Calcium (8.6-10.4) mg/dl Phosphorus (2.5-4.5) mg/dL Magnesium (1.6-2.3) mg/dL Total Bilirubin (0.2-1.3) mg/dL AST (17-59) U/L ALT (21-72) U/L Alkaline Phosphatase (38-126) U/L Total Protein (6.3-8.3) g/dL Albumin (3.5-5.0) g/dL Globulin (2.2-3.9) gm/dL Albumin/Globulin Ratio (1.0-2.1) Arterial Blood Potassium 3.5 L (3.6-5.2) mmol/L 10/14/17 10/14/17 Range/Units 17:52 11:24 WBC (4.8-10.8) K/uL RBC (4.40-5.90) Mil/uL Hgb (12.0-18.0) g/dL Hct (35.0-51.0) % MCV (80.0-94.0) fL MCH (27.0-31.0) pg MCHC (33.0-37.0) g/dL RDW (11.5-14.5) % Plt Count (130-400) K/uL MPV (7.2-11.7) fL Neut % (Auto) (50.0-75.0) % Lymph % (Auto) (20.0-40.0) % [place] % (Auto) (0.0-10.0) % Eos % (Auto) (0.0-4.0) % Baso % (Auto) (0.0-2.0) % Neut # (Auto) (1.8-7.0) K/uL Lymph # (Auto) (1.0-4.3) K/uL [place] # (Auto) (0.0-0.8) K/uL Eos # (Auto) (0.0-0.7) K/uL Baso # (Auto) (0.0-0.2) K/uL Neutrophils % (Manual) (50-75) % Band Neutrophils % (0-2) % Lymphocytes % (Manual) (20-40) % Monocytes % (Manual) (0-10) % Eosinophils % (Manual) (0-4) % Platelet Estimate (NORMAL) Hypochromasia (manual) Poikilocytosis (manual Anisocytosis (manual) Ovalocytes Stanton Cells Puncture Site pCO2 (35-45) mm/Hg pO2 (80-100) mm/Hg HCO3 (21-28) mmol/L ABG pH (7.35-7.45) ABG Total CO2 (22-28) mmol/L ABG O2 Saturation (95-98) % ABG Base Excess (-2.0-3.0) mmol/L Lyle Test ABG Potassium (3.6-5.2) mmol/L A-a O2 Difference mm/Hg Respiratory Index Sodium (132-148) mmol/l Chloride (98-107) mmol/L Glucose (75-110) mg/dl Lactate (0.7-2.1) mmol/L Vent Mode Mechanical Rate FiO2 % Tidal Volume PEEP Potassium (3.6-5.2) mmol/L Carbon Dioxide (22-30) mmol/L Anion Gap (10-20) BUN (9-20) mg/dL Creatinine (0.8-1.5) mg/dL Est GFR ( Amer) Est GFR (Non-Af Amer) POC Glucose (mg/dL) 265 H 173 H (65-110) mg/dL Random Glucose (75-110) mg/dL Calcium (8.6-10.4) mg/dl Phosphorus (2.5-4.5) mg/dL Magnesium (1.6-2.3) mg/dL Total Bilirubin (0.2-1.3) mg/dL AST (17-59) U/L ALT (21-72) U/L Alkaline Phosphatase (38-126) U/L Total Protein (6.3-8.3) g/dL Albumin (3.5-5.0) g/dL Globulin (2.2-3.9) gm/dL Albumin/Globulin Ratio (1.0-2.1) Arterial Blood Potassium (3.6-5.2) mmol/L Laboratory Results - last 24 hr 10/14/17 10/14/17 10/15/17 11:24 17:52 00:04 WBC RBC Hgb Hct MCV MCH MCHC RDW Plt Count MPV Neut % (Auto) Lymph % (Auto) [place] % (Auto) Eos % (Auto) Baso % (Auto) Neut # (Auto) Lymph # (Auto) [place] # (Auto) Eos # (Auto) Baso # (Auto) Neutrophils % (Manual) Band Neutrophils % Lymphocytes % (Manual) Monocytes % (Manual) Eosinophils % (Manual) Platelet Estimate Hypochromasia (manual) Poikilocytosis (manual Anisocytosis (manual) Ovalocytes Evelyn Cells Puncture Site pCO2 pO2 HCO3 ABG pH ABG Total CO2 ABG O2 Saturation ABG Base Excess Lyle Test ABG Potassium A-a O2 Difference Respiratory Index Sodium Chloride Glucose Lactate Vent Mode Mechanical Rate FiO2 Tidal Volume PEEP Potassium Carbon Dioxide Anion Gap BUN Creatinine Est GFR ( Amer) Est GFR (Non-Af Amer) POC Glucose (mg/dL) 173 H 265 H 304 H Random Glucose Calcium Phosphorus Magnesium Total Bilirubin AST ALT Alkaline Phosphatase Total Protein Albumin Globulin Albumin/Globulin Ratio Arterial Blood Potassium 10/15/17 10/15/17 10/15/17 05:26 05:27 06:14 WBC 8.4 RBC 2.65 L Hgb 8.3 L Hct 24.5 L MCV 92.4 MCH 31.5 H MCHC 34.1 RDW 16.2 H Plt Count 225 MPV 7.6 Neut % (Auto) 81.0 H Lymph % (Auto) 6.5 L [place] % (Auto) 8.8 Eos % (Auto) 2.8 Baso % (Auto) 0.9 Neut # (Auto) 6.8 Lymph # (Auto) 0.5 L [place] # (Auto) 0.7 Eos # (Auto) 0.2 Baso # (Auto) 0.1 Neutrophils % (Manual) 84 H Band Neutrophils % 2 Lymphocytes % (Manual) 5 L Monocytes % (Manual) 6 Eosinophils % (Manual) 3 Platelet Estimate Normal Hypochromasia (manual) Slight Poikilocytosis (manual Slight Anisocytosis (manual) Slight Ovalocytes Slight Evelyn Cells Slight Puncture Site Rr pCO2 39 pO2 89 HCO3 30.2 H ABG pH 7.50 H ABG Total CO2 31.6 H ABG O2 Saturation 98.7 H ABG Base Excess 6.7 H Lyle Test Pos ABG Potassium 3.5 L A-a O2 Difference 147.0 Respiratory Index 1.7 Sodium 144.0 Chloride 112.0 H Glucose 295 H Lactate 0.8 Vent Mode Prvc Mechanical Rate 12 FiO2 40.0 Tidal Volume 400 PEEP 5 Potassium Carbon Dioxide Anion Gap BUN Creatinine Est GFR ( Amer) Est GFR (Non-Af Amer) POC Glucose (mg/dL) 266 H Random Glucose Calcium Phosphorus Magnesium Total Bilirubin AST ALT Alkaline Phosphatase Total Protein Albumin Globulin Albumin/Globulin Ratio Arterial Blood Potassium 3.5 L 10/15/17 10/15/17 06:14 06:30 WBC RBC Hgb Hct MCV MCH MCHC RDW Plt Count MPV Neut % (Auto) Lymph % (Auto) [place] % (Auto) Eos % (Auto) Baso % (Auto) Neut # (Auto) Lymph # (Auto) [place] # (Auto) Eos # (Auto) Baso # (Auto) Neutrophils % (Manual) Band Neutrophils % Lymphocytes % (Manual) Monocytes % (Manual) Eosinophils % (Manual) Platelet Estimate Hypochromasia (manual) Poikilocytosis (manual Anisocytosis (manual) Ovalocytes Stanton Cells Puncture Site pCO2 pO2 HCO3 ABG pH ABG Total CO2 ABG O2 Saturation ABG Base Excess Lyle Test ABG Potassium A-a O2 Difference Respiratory Index Sodium 145 Chloride 109 H Glucose Lactate Vent Mode Mechanical Rate FiO2 Tidal Volume PEEP Potassium 3.7 Carbon Dioxide 30 Anion Gap 10 BUN 24 H Creatinine 1.3 Est GFR ( Amer) > 60 Est GFR (Non-Af Amer) 52 POC Glucose (mg/dL) Random Glucose 251 H Calcium 7.7 L Phosphorus 1.6 L Magnesium 2.0 Total Bilirubin 0.5 AST 48 ALT 32 Alkaline Phosphatase 177 H Total Protein 5.6 L Albumin 2.5 L Globulin 3.1 Albumin/Globulin Ratio 0.8 L Arterial Blood Potassium Fingerstick Blood Sugar Results: 266 Review of Systems - Review of Systems Systems not reviewed;Unavailable: Other (on CPAP) Critical Care Progress Note - Nutrition Nutrition: Nutrition Category Date Time Status NPO Diet [DIET] Diets 10/10/17 Dinner Active Assessment/Plan - Assessment and Plan (Free Text) Assessment: 87 year old male with PMHx CAD, pacemaker, DM2, CHF, HLD, dementia who presented from the halfway in respiratory arrest Plan: Neuro: A: Dementia, GCS: 7T CT Head (Adm): 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 No acute hemmorahge. Cardio A: CAD, CHF Hold Home Antihypertensives Pulm A: Aspiration PNA AB.67/21/179/28 Switched to CPAP today and is tolerating. CXR (10/13/17): Bilateral effusions and bibasilar atelectasis and/or infiltrates Chest CT (10/14/17): Bilateral moderate pleural effusion with lower lobe subsegmental/segmental atelectasis. Multifocal right lung small airways disease. Nonspecific. Possible infectious etiology. Endotracheal tube. Percutaneous gastrostomy tube. Permanent pacemaker. Cardiomegaly. GI A: HLD Consider Restarting Home Statins : I/O: 1500/840 Nephro/electrolytes Neutra-Phos 1 pkt PO BID JEFFERY ID Afebrile, No Leukocytosis Blood, Urine, and Nares Cultures NEGATIVE Cont. Emperic Antibiotic Coverage Vancomycin 1gm Daily Cefepime 1gm Q12H Azithromycin 500mg Daily Consider ProCal Endo A: DM II Novolog Integumentary A: Candidiasis in perianal and Abd. Folds Nystatin Powder. MSK PT/OT Prophylaxis Lovenox SC Daily Protonix IV Daily Tube Feeding (Vital 1.2) Dispo: Case management referral for LTAC. Will F/U with Case management and Palliative Care. Patient seen and discussed with ICU Attending Mumtaz Carlton, PGY-1 <Merlin Marques - Last Filed: 10/15/17 16:33> CCU Objective - Vital Signs / Intake & Output Vital Signs (Last 4 hours): Vital Signs Temp Pulse Resp BP Pulse Ox 10/15/17 16:03 72 23 134/61 95 10/15/17 16:00 99.2 F 75 19 99 10/15/17 15:03 75 22 146/60 98 10/15/17 15:00 75 21 98 10/15/17 14:04 75 18 140/81 98 10/15/17 14:00 73 21 98 10/15/17 13:04 71 21 144/76 96 10/15/17 13:00 72 20 97 Intake and Output (Last 8hrs): Intake & Output 10/15/17 10/15/17 10/15/17 06:59 14:59 22:59 Intake Total 450 705 100 Output Total 245 200 65 Balance 205 505 35 Weight 128 lb 4.944 oz Intake: Intake, IV Amount 50 305 Right PICC 50 305 Tube Feeding 400 400 100 Output: Urine 245 200 65 Urethral (Valladares) 245 200 65 Other: # Bowel Movements 1 - Medications Active Medications: Active Medications Generic Name Dose Route Start Last Admin Trade Name Freq PRN Reason Stop Dose Admin Enoxaparin Sodium 40 mg 10/11/17 11:15 10/15/17 09:05 Lovenox SC 40 mg DAILY JEFFERY Administration Cefepime HCl 1 gm in 50 mls @ 100 mls/hr 10/14/17 12:00 10/15/17 12:29 Maxipime Iv 1 Gm Premix IVPB 100 mls/hr Q12H JEFFERY Administration Protocol Insulin Aspart 0 unit 10/10/17 18:00 10/15/17 12:30 Novolog SC 4 unit Q6 JEFFERY Administration Protocol Lactic Acid 0 gm 10/15/17 18:00 Lac-Hydrin 12% Lotion (225 G) EXT BID JEFFERY Pantoprazole Sodium 40 mg 10/11/17 10:00 10/15/17 09:05 Protonix Inj IVP 40 mg DAILY JEFFERY Administration - Patient Studies Lab Studies: Microbiology Studies 10/10/17 11:45 Blood Culture - Preliminary Blood NO GROWTH AFTER 4 DAYS 10/10/17 12:15 Blood Culture - Preliminary Blood NO GROWTH AFTER 4 DAYS Lab Studies 10/15/17 10/15/17 10/15/17 Range/Units 11:25 06:30 06:14 WBC (4.8-10.8) K/uL RBC (4.40-5.90) Mil/uL Hgb (12.0-18.0) g/dL Hct (35.0-51.0) % MCV (80.0-94.0) fL MCH (27.0-31.0) pg MCHC (33.0-37.0) g/dL RDW (11.5-14.5) % Plt Count (130-400) K/uL MPV (7.2-11.7) fL Neut % (Auto) (50.0-75.0) % Lymph % (Auto) (20.0-40.0) % [place] % (Auto) (0.0-10.0) % Eos % (Auto) (0.0-4.0) % Baso % (Auto) (0.0-2.0) % Neut # (Auto) (1.8-7.0) K/uL Lymph # (Auto) (1.0-4.3) K/uL [place] # (Auto) (0.0-0.8) K/uL Eos # (Auto) (0.0-0.7) K/uL Baso # (Auto) (0.0-0.2) K/uL Neutrophils % (Manual) (50-75) % Band Neutrophils % (0-2) % Lymphocytes % (Manual) (20-40) % Monocytes % (Manual) (0-10) % Eosinophils % (Manual) (0-4) % Platelet Estimate (NORMAL) Hypochromasia (manual) Poikilocytosis (manual Anisocytosis (manual) Ovalocytes Stanton Cells Puncture Site pCO2 (35-45) mm/Hg pO2 (80-100) mm/Hg HCO3 (21-28) mmol/L ABG pH (7.35-7.45) ABG Total CO2 (22-28) mmol/L ABG O2 Saturation (95-98) % ABG Base Excess (-2.0-3.0) mmol/L Lyle Test ABG Potassium (3.6-5.2) mmol/L A-a O2 Difference mm/Hg Respiratory Index Sodium 145 (132-148) mmol/l Chloride 109 H (98-107) mmol/L Glucose (75-110) mg/dl Lactate (0.7-2.1) mmol/L Vent Mode Mechanical Rate FiO2 % Tidal Volume PEEP Potassium 3.7 (3.6-5.2) mmol/L Carbon Dioxide 30 (22-30) mmol/L Anion Gap 10 (10-20) BUN 24 H (9-20) mg/dL Creatinine 1.3 (0.8-1.5) mg/dL Est GFR ( Amer) > 60 Est GFR (Non-Af Amer) 52 POC Glucose (mg/dL) 282 H (65-110) mg/dL Random Glucose 251 H (75-110) mg/dL Calcium 7.7 L (8.6-10.4) mg/dl Phosphorus 1.6 L (2.5-4.5) mg/dL Magnesium 2.0 (1.6-2.3) mg/dL Total Bilirubin 0.5 (0.2-1.3) mg/dL AST 48 (17-59) U/L ALT 32 (21-72) U/L Alkaline Phosphatase 177 H (38-126) U/L Total Protein 5.6 L (6.3-8.3) g/dL Albumin 2.5 L (3.5-5.0) g/dL Globulin 3.1 (2.2-3.9) gm/dL Albumin/Globulin Ratio 0.8 L (1.0-2.1) Arterial Blood Potassium (3.6-5.2) mmol/L 10/15/17 10/15/17 10/15/17 Range/Units 06:14 05:27 05:26 WBC 8.4 (4.8-10.8) K/uL RBC 2.65 L (4.40-5.90) Mil/uL Hgb 8.3 L (12.0-18.0) g/dL Hct 24.5 L (35.0-51.0) % MCV 92.4 (80.0-94.0) fL MCH 31.5 H (27.0-31.0) pg MCHC 34.1 (33.0-37.0) g/dL RDW 16.2 H (11.5-14.5) % Plt Count 225 (130-400) K/uL MPV 7.6 (7.2-11.7) fL Neut % (Auto) 81.0 H (50.0-75.0) % Lymph % (Auto) 6.5 L (20.0-40.0) % [place] % (Auto) 8.8 (0.0-10.0) % Eos % (Auto) 2.8 (0.0-4.0) % Baso % (Auto) 0.9 (0.0-2.0) % Neut # (Auto) 6.8 (1.8-7.0) K/uL Lymph # (Auto) 0.5 L (1.0-4.3) K/uL [place] # (Auto) 0.7 (0.0-0.8) K/uL Eos # (Auto) 0.2 (0.0-0.7) K/uL Baso # (Auto) 0.1 (0.0-0.2) K/uL Neutrophils % (Manual) 84 H (50-75) % Band Neutrophils % 2 (0-2) % Lymphocytes % (Manual) 5 L (20-40) % Monocytes % (Manual) 6 (0-10) % Eosinophils % (Manual) 3 (0-4) % Platelet Estimate Normal (NORMAL) Hypochromasia (manual) Slight Poikilocytosis (manual Slight Anisocytosis (manual) Slight Ovalocytes Slight Stanton Cells Slight Puncture Site Rr pCO2 39 (35-45) mm/Hg pO2 89 (80-100) mm/Hg HCO3 30.2 H (21-28) mmol/L ABG pH 7.50 H (7.35-7.45) ABG Total CO2 31.6 H (22-28) mmol/L ABG O2 Saturation 98.7 H (95-98) % ABG Base Excess 6.7 H (-2.0-3.0) mmol/L Lyle Test Pos ABG Potassium 3.5 L (3.6-5.2) mmol/L A-a O2 Difference 147.0 mm/Hg Respiratory Index 1.7 Sodium 144.0 (132-148) mmol/l Chloride 112.0 H (98-107) mmol/L Glucose 295 H (75-110) mg/dl Lactate 0.8 (0.7-2.1) mmol/L Vent Mode Prvc Mechanical Rate 12 FiO2 40.0 % Tidal Volume 400 PEEP 5 Potassium (3.6-5.2) mmol/L Carbon Dioxide (22-30) mmol/L Anion Gap (10-20) BUN (9-20) mg/dL Creatinine (0.8-1.5) mg/dL Est GFR ( Amer) Est GFR (Non-Af Amer) POC Glucose (mg/dL) 266 H (65-110) mg/dL Random Glucose (75-110) mg/dL Calcium (8.6-10.4) mg/dl Phosphorus (2.5-4.5) mg/dL Magnesium (1.6-2.3) mg/dL Total Bilirubin (0.2-1.3) mg/dL AST (17-59) U/L ALT (21-72) U/L Alkaline Phosphatase (38-126) U/L Total Protein (6.3-8.3) g/dL Albumin (3.5-5.0) g/dL Globulin (2.2-3.9) gm/dL Albumin/Globulin Ratio (1.0-2.1) Arterial Blood Potassium 3.5 L (3.6-5.2) mmol/L 10/15/17 10/14/17 Range/Units 00:04 17:52 WBC (4.8-10.8) K/uL RBC (4.40-5.90) Mil/uL Hgb (12.0-18.0) g/dL Hct (35.0-51.0) % MCV (80.0-94.0) fL MCH (27.0-31.0) pg MCHC (33.0-37.0) g/dL RDW (11.5-14.5) % Plt Count (130-400) K/uL MPV (7.2-11.7) fL Neut % (Auto) (50.0-75.0) % Lymph % (Auto) (20.0-40.0) % [place] % (Auto) (0.0-10.0) % Eos % (Auto) (0.0-4.0) % Baso % (Auto) (0.0-2.0) % Neut # (Auto) (1.8-7.0) K/uL Lymph # (Auto) (1.0-4.3) K/uL [place] # (Auto) (0.0-0.8) K/uL Eos # (Auto) (0.0-0.7) K/uL Baso # (Auto) (0.0-0.2) K/uL Neutrophils % (Manual) (50-75) % Band Neutrophils % (0-2) % Lymphocytes % (Manual) (20-40) % Monocytes % (Manual) (0-10) % Eosinophils % (Manual) (0-4) % Platelet Estimate (NORMAL) Hypochromasia (manual) Poikilocytosis (manual Anisocytosis (manual) Ovalocytes Evelyn Cells Puncture Site pCO2 (35-45) mm/Hg pO2 (80-100) mm/Hg HCO3 (21-28) mmol/L ABG pH (7.35-7.45) ABG Total CO2 (22-28) mmol/L ABG O2 Saturation (95-98) % ABG Base Excess (-2.0-3.0) mmol/L Lyle Test ABG Potassium (3.6-5.2) mmol/L A-a O2 Difference mm/Hg Respiratory Index Sodium (132-148) mmol/l Chloride (98-107) mmol/L Glucose (75-110) mg/dl Lactate (0.7-2.1) mmol/L Vent Mode Mechanical Rate FiO2 % Tidal Volume PEEP Potassium (3.6-5.2) mmol/L Carbon Dioxide (22-30) mmol/L Anion Gap (10-20) BUN (9-20) mg/dL Creatinine (0.8-1.5) mg/dL Est GFR ( Amer) Est GFR (Non-Af Amer) POC Glucose (mg/dL) 304 H 265 H (65-110) mg/dL Random Glucose (75-110) mg/dL Calcium (8.6-10.4) mg/dl Phosphorus (2.5-4.5) mg/dL Magnesium (1.6-2.3) mg/dL Total Bilirubin (0.2-1.3) mg/dL AST (17-59) U/L ALT (21-72) U/L Alkaline Phosphatase (38-126) U/L Total Protein (6.3-8.3) g/dL Albumin (3.5-5.0) g/dL Globulin (2.2-3.9) gm/dL Albumin/Globulin Ratio (1.0-2.1) Arterial Blood Potassium (3.6-5.2) mmol/L Laboratory Results - last 24 hr 10/14/17 10/15/17 10/15/17 17:52 00:04 05:26 WBC RBC Hgb Hct MCV MCH MCHC RDW Plt Count MPV Neut % (Auto) Lymph % (Auto) [place] % (Auto) Eos % (Auto) Baso % (Auto) Neut # (Auto) Lymph # (Auto) [place] # (Auto) Eos # (Auto) Baso # (Auto) Neutrophils % (Manual) Band Neutrophils % Lymphocytes % (Manual) Monocytes % (Manual) Eosinophils % (Manual) Platelet Estimate Hypochromasia (manual) Poikilocytosis (manual Anisocytosis (manual) Ovalocytes Evelyn Cells Puncture Site Rr pCO2 39 pO2 89 HCO3 30.2 H ABG pH 7.50 H ABG Total CO2 31.6 H ABG O2 Saturation 98.7 H ABG Base Excess 6.7 H Lyle Test Pos ABG Potassium 3.5 L A-a O2 Difference 147.0 Respiratory Index 1.7 Sodium 144.0 Chloride 112.0 H Glucose 295 H Lactate 0.8 Vent Mode Prvc Mechanical Rate 12 FiO2 40.0 Tidal Volume 400 PEEP 5 Potassium Carbon Dioxide Anion Gap BUN Creatinine Est GFR ( Amer) Est GFR (Non-Af Amer) POC Glucose (mg/dL) 265 H 304 H Random Glucose Calcium Phosphorus Magnesium Total Bilirubin AST ALT Alkaline Phosphatase Total Protein Albumin Globulin Albumin/Globulin Ratio Arterial Blood Potassium 3.5 L 10/15/17 10/15/17 10/15/17 05:27 06:14 06:14 WBC 8.4 RBC 2.65 L Hgb 8.3 L Hct 24.5 L MCV 92.4 MCH 31.5 H MCHC 34.1 RDW 16.2 H Plt Count 225 MPV 7.6 Neut % (Auto) 81.0 H Lymph % (Auto) 6.5 L [place] % (Auto) 8.8 Eos % (Auto) 2.8 Baso % (Auto) 0.9 Neut # (Auto) 6.8 Lymph # (Auto) 0.5 L [place] # (Auto) 0.7 Eos # (Auto) 0.2 Baso # (Auto) 0.1 Neutrophils % (Manual) 84 H Band Neutrophils % 2 Lymphocytes % (Manual) 5 L Monocytes % (Manual) 6 Eosinophils % (Manual) 3 Platelet Estimate Normal Hypochromasia (manual) Slight Poikilocytosis (manual Slight Anisocytosis (manual) Slight Ovalocytes Slight [place] Cells Slight Puncture Site pCO2 pO2 HCO3 ABG pH ABG Total CO2 ABG O2 Saturation ABG Base Excess Lyle Test ABG Potassium A-a O2 Difference Respiratory Index Sodium 145 Chloride 109 H Glucose Lactate Vent Mode Mechanical Rate FiO2 Tidal Volume PEEP Potassium 3.7 Carbon Dioxide 30 Anion Gap 10 BUN 24 H Creatinine 1.3 Est GFR ( Amer) > 60 Est GFR (Non-Af Amer) 52 POC Glucose (mg/dL) 266 H Random Glucose 251 H Calcium 7.7 L Phosphorus Magnesium Total Bilirubin 0.5 AST 48 ALT 32 Alkaline Phosphatase 177 H Total Protein 5.6 L Albumin 2.5 L Globulin 3.1 Albumin/Globulin Ratio 0.8 L Arterial Blood Potassium 10/15/17 10/15/17 06:30 11:25 WBC RBC Hgb Hct MCV MCH MCHC RDW Plt Count MPV Neut % (Auto) Lymph % (Auto) [place] % (Auto) Eos % (Auto) Baso % (Auto) Neut # (Auto) Lymph # (Auto) [place] # (Auto) Eos # (Auto) Baso # (Auto) Neutrophils % (Manual) Band Neutrophils % Lymphocytes % (Manual) Monocytes % (Manual) Eosinophils % (Manual) Platelet Estimate Hypochromasia (manual) Poikilocytosis (manual Anisocytosis (manual) Ovalocytes Evelyn Cells Puncture Site pCO2 pO2 HCO3 ABG pH ABG Total CO2 ABG O2 Saturation ABG Base Excess Lyle Test ABG Potassium A-a O2 Difference Respiratory Index Sodium Chloride Glucose Lactate Vent Mode Mechanical Rate FiO2 Tidal Volume PEEP Potassium Carbon Dioxide Anion Gap BUN Creatinine Est GFR ( Amer) Est GFR (Non-Af Amer) POC Glucose (mg/dL) 282 H Random Glucose Calcium Phosphorus 1.6 L Magnesium 2.0 Total Bilirubin AST ALT Alkaline Phosphatase Total Protein Albumin Globulin Albumin/Globulin Ratio Arterial Blood [facility] Note - Nutrition Nutrition: Nutrition Category Date Time Status NPO Diet [DIET] Diets 10/10/17 Dinner Active Assessment/Plan (1) Respiratory arrest Current Visit: Yes Status: Acute Comment: Tolerating CPAP Continue weaning Continue IV antibiotics Will need thoracentesis Continue present care including feeding (2) Pneumonia Current Visit: No Status: Acute (3) Dementia Current Visit: No Status: Chronic Attending/Attestation - Attestation I have personally seen and examined this patient.: Yes I have fully participated in the care of the patient.: Yes I have reviewed all pertinent clinical information: Yes Notes (Text): 10/15/17 16:32 patient seen and examined in the intensive care unit. tolerating CPAP since morning More lethargic today Continue feeding Bilateral pleural effusion Continue antibiotics
--- NOTE | 2017-10-15 13:17 | CP.PCM.PN ---
Subjective - Date & Time of Evaluation Date of Evaluation: 10/15/17 Time of Evaluation: 10:20 - Subjective Subjective: clinically same Objective - Vital Signs/Intake and Output Vital Signs (last 24 hours): Temp Pulse Resp BP Pulse Ox 98.6 F 78 21 145/63 98 10/15/17 11:49 10/15/17 12:04 10/15/17 12:04 10/15/17 12:04 10/15/17 12:04 Intake and Output: 10/15/17 10/15/17 06:59 18:59 Intake Total 650 655 Output Total 435 180 Balance 215 475 - Medications Medications: Current Medications Enoxaparin Sodium (Lovenox) 40 mg SC DAILY [facility] Last Admin: 10/15/17 09:05 Dose: 40 mg Azithromycin 500 mg/ Sodium (Chloride) 250 mls @ 250 mls/hr IVPB DAILY@1600 [facility] PRN Reason: Protocol Last Admin: 10/14/17 17:00 Dose: 250 mls/hr Cefepime HCl (Maxipime Iv 1 Gm Premix) 1 gm in 50 mls @ 100 mls/hr IVPB Q12H [facility] PRN Reason: Protocol Last Admin: 10/15/17 12:29 Dose: 100 mls/hr Potassium Phosphate 15 mmole/ (Sodium Chloride) 255 mls @ 42.5 mls/hr IVPB ONCE ONE Stop: 10/15/17 15:59 Last Admin: 10/15/17 10:56 Dose: 42.5 mls/hr Insulin Aspart (Novolog) 0 unit SC Q6 [facility] PRN Reason: Protocol Last Admin: 10/15/17 12:30 Dose: 4 unit Lactic Acid (Lac-Hydrin 12% Lotion (225 G)) 0 gm EXT BID [facility] Pantoprazole Sodium (Protonix Inj) 40 mg IVP DAILY [facility] Last Admin: 10/15/17 09:05 Dose: 40 mg - Labs Labs: 10/15/17 06:14 10/15/17 06:14 PT 12.6 SECONDS (9.7-12.2) H 10/10/17 12:02 INR 1.1 10/10/17 12:02 APTT 18 SECONDS (21-34) L 10/10/17 12:02 - Constitutional Appears: Well - Head Exam Head Exam: ATRAUMATIC, NORMAL INSPECTION, NORMOCEPHALIC - Eye Exam Eye Exam: EOMI, Normal appearance, PERRL Pupil Exam: NORMAL ACCOMODATION, PERRL - ENT Exam ENT Exam: Mucous Membranes Moist, Normal Exam - Neck Exam Neck Exam: Full ROM, Normal Inspection. absent: Lymphadenopathy - Respiratory Exam Respiratory Exam: Decreased Breath Sounds - Cardiovascular Exam Cardiovascular Exam: REGULAR RHYTHM, +S1, +S2 - GI/Abdominal Exam GI & Abdominal Exam: Soft, Diminished Bowel Sounds - Rectal Exam Rectal Exam: Deferred
[2017-10-15] MEDS: Azithromycin 500 MG in Sodium Chloride 0.9% 250 ML IVPB SCH (15:49)
--- NOTE | 2017-10-15 16:03 | CP.PCM.PN ---
Subjective - Date & Time of Evaluation Date of Evaluation: 10/15/17 Time of Evaluation: 10:00 - Subjective Subjective: iv rx renewed seen in ICU little improvement may need trach and peg Objective - Vital Signs/Intake and Output Vital Signs (last 24 hours): Temp Pulse Resp BP Pulse Ox 98.6 F 75 22 146/60 98 10/15/17 11:49 10/15/17 15:03 10/15/17 15:03 10/15/17 15:03 10/15/17 15:03 Intake and Output: 10/15/17 10/15/17 06:59 18:59 Intake Total 650 755 Output Total 435 225 Balance 215 530 - Medications Medications: Current Medications Enoxaparin Sodium (Lovenox) 40 mg SC DAILY [facility] [place] Last Admin: 10/15/17 09:05 Dose: 40 mg Cefepime HCl (Maxipime Iv 1 Gm Premix) 1 gm in 50 mls @ 100 mls/hr IVPB Q12H [facility] PRN Reason: Protocol Last Admin: 10/15/17 12:29 Dose: 100 mls/hr Insulin Aspart (Novolog) 0 unit SC Q6 [facility] PRN Reason: Protocol Last Admin: 10/15/17 12:30 Dose: 4 unit Lactic Acid (Lac-Hydrin 12% Lotion (225 G)) 0 gm EXT BID [facility] Pantoprazole Sodium (Protonix Inj) 40 mg IVP DAILY [facility] [place] Last Admin: 10/15/17 09:05 Dose: 40 mg - Labs Labs: 10/15/17 06:14 10/15/17 06:14 PT 12.6 SECONDS (9.7-12.2) H 10/10/17 12:02 INR 1.1 10/10/17 12:02 APTT 18 SECONDS (21-34) L 10/10/17 12:02 - Constitutional Appears: Confused - Head Exam Head Exam: NORMOCEPHALIC - Eye Exam Eye Exam: absent: Scleral icterus - ENT Exam ENT Exam: Mucous Membranes Dry - Neck Exam Neck Exam: absent: Lymphadenopathy - Respiratory Exam Respiratory Exam: Decreased Breath Sounds - Cardiovascular Exam Cardiovascular Exam: REGULAR RHYTHM - GI/Abdominal Exam GI & Abdominal Exam: Distended, Soft - Rectal Exam Rectal Exam: Deferred - Exam Exam: NORMAL INSPECTION Assessment and Plan (1) Respiratory arrest Status: Acute (2) Aspiration pneumonia Status: Acute (3) Bronchitis Status: Acute (4) CAD (coronary artery disease) Status: Acute (5) Diabetes Status: Acute
[2017-10-15] MEDS: Ammonium Lactate 12% Lotion (225 g) EXT SCH (17:30)
[2017-10-16] MEDS: Cefepime IV 1 gm in Dextrose 1 GM/50 ML BAG IVPB SCH ×2 (00:22→11:55)
[2017-10-16] MEDS: (Novolog) Insulin Aspart, Recombinant 100 u/ml 10 ml vial SC SCH ×4 (00:23→17:16)
[2017-10-16 05:31] LABS: ABG ALLEN TEST POS; ARTERIAL BLOOD GAS HCO3 31.3 mmol/L (21-28); ARTERIAL BLOOD GAS HEMOGLOBIN 8.2 g/dL (11.7-17.4); ARTERIAL BLOOD GAS PCO2 40 mm/Hg (35-45); ARTERIAL BLOOD GAS PH 7.51 (7.35-7.45); ARTERIAL BLOOD GAS PO2 74 mm/Hg (80-100); ARTERIAL BLOOD GAS TCO2 33.1 mmol/L (22-28)
[2017-10-16 06:16] LABS: BASO # 0.1 K/uL (0.0-0.2); BASO % 0.6 % (0.0-2.0); EOS # 0.3 K/uL (0.0-0.7); EOS % 3.1 % (0.0-4.0); HEMOGLOBIN 8.5 g/dL (12.0-18.0); LYMPH # 0.5 K/uL (1.0-4.3); LYMPH % 6.1 % (20.0-40.0); MEAN CELL VOLUME 93.9 fL (80.0-94.0); MEAN CORPUSCULAR HEMOGLOBIN 31.3 pg (27.0-31.0); MEAN CORPUSCULAR HGB CONC 33.3 g/dL (33.0-37.0); MEAN PLATELET VOLUME 7.2 fL (7.2-11.7); MONO # 0.9 K/uL (0.0-0.8); MONO % 10.2 % (0.0-10.0); NRBC % 0.6 % (0.0-2.0); PLATELET COUNT 239 K/uL (130-400); RBC 2.71 Mil/uL (4.40-5.90); RED CELL DISTRIBUTION WIDTH 15.9 % (11.5-14.5); WHITE BLOOD COUNT 8.8 K/uL (4.8-10.8)
[2017-10-16 06:35] LABS: ALB/GLOB RATIO 0.9 (1.0-2.1); ALBUMIN 2.5 g/dL (3.5-5.0); ALT/SGPT 49 U/L (21-72); AST/SGOT 67 U/L (17-59); BLOOD UREA NITROGEN 22 mg/dL (9-20); CALCIUM 7.5 mg/dl (8.6-10.4); GFR AFRICAN-AMERICAN > 60; GFR NON-AFRICAN AMERICAN 57
[2017-10-16 08:18] LABS: BANDS 6 % (0-2); EOSINOPHIL 1 % (0-4); LYMPHOCYTE 7 % (20-40); MONOCYTE 6 % (0-10); MYELOCYTE 1 % (0-0); NEUTROPHIL 78 % (50-75); PLATELET ESTIMATE NORMAL (NORMAL); REACTIVE LYMPHOCYTES 1 % (0-0); TOTAL CELLS COUNTED 100
[2017-10-16 08:19] LABS: ANISOCYTOSIS SLIGHT
--- NOTE | 2017-10-16 09:02 | RAD ---
Chest x-ray single frontal view History: Shortness of breath. Comparison: 10/15/2017 Findings: Lines and tubes in stable position. Left-sided pacemaker. Multiple external wires and tubing. Moderate to severe venous congestion with confluent airspace opacification in the mid to lower lung zones bilaterally with associated moderate bilateral pleural effusions. Right paratracheal prominence may represent prominent vasculature. Heart size within normal limits. Degenerative changes in the spine and shoulders. Biapical pleural thickening with upper lobe granulomatous changes. Impression: Lines and tubes in stable position. Left-sided pacemaker. Multiple external wires and tubing. Moderate to severe venous congestion with confluent airspace opacification in the mid to lower lung zones bilaterally with associated moderate bilateral pleural effusions. Right paratracheal prominence may represent prominent vasculature. Heart size within normal limits. Degenerative changes in the spine and shoulders. Biapical pleural thickening with upper lobe granulomatous changes.
[2017-10-16] MEDS: Enoxaparin 40 mg Syringe SC SCH (09:06)
[2017-10-16] MEDS: Ammonium Lactate 12% Lotion (225 g) EXT SCH ×2 (09:07→17:15)
--- NOTE | 2017-10-16 12:51 | CP.CCUPN ---
<Jesus Peterson - Last Filed: 10/16/17 15:31> CCU Objective - Vital Signs / Intake & Output Vital Signs (Last 4 hours): Vital Signs Temp Pulse Resp BP Pulse Ox 10/16/17 15:01 74 24 130/49 L 96 10/16/17 15:00 73 23 95 10/16/17 14:01 70 23 118/48 L 96 10/16/17 14:00 70 23 97 10/16/17 13:01 74 20 133/52 L 97 10/16/17 13:00 74 23 98 10/16/17 12:01 69 22 121/48 L 96 10/16/17 12:00 98.5 F 69 22 96 Intake and Output (Last 8hrs): Intake & Output 10/16/17 10/16/17 10/16/17 06:59 14:59 22:59 Intake Total 450 450 50 Output Total 290 325 50 Balance 160 125 0 Weight 128 lb 4.944 oz Intake: Intake, IV Amount 50 50 Right PICC 50 50 Tube Feeding 400 400 50 Output: Urine 290 325 50 Urethral (Valladares) 290 325 50 Other: # Bowel Movements 0 1 - Medications Active Medications: Active Medications Generic Name Dose Route Start Last Admin Trade Name Freq PRN Reason Stop Dose Admin Enoxaparin Sodium 40 mg 10/11/17 11:15 10/16/17 09:06 Lovenox SC 40 mg DAILY JEFFERY Administration Cefepime HCl 1 gm in 50 mls @ 100 mls/hr 10/14/17 12:00 10/16/17 11:55 Maxipime Iv 1 Gm Premix IVPB 100 mls/hr Q12H JEFFERY Administration Protocol Insulin Aspart 0 unit 10/16/17 00:00 10/16/17 11:52 Novolog SC 3 unit Q6 JEFFERY Administration Protocol Lactic Acid 0 gm 10/15/17 18:00 10/16/17 09:07 Lac-Hydrin 12% Lotion (225 G) EXT 1 applic BID JEFFERY Administration Pantoprazole Sodium 40 mg 10/11/17 10:00 10/16/17 09:06 Protonix Inj IVP 40 mg DAILY JEFFERY Administration - Patient Studies Lab Studies: Microbiology Studies 10/10/17 11:45 Blood Culture - Final Blood NO GROWTH AFTER 5 DAYS Gram Stain - Final TEST NOT PERFORMED 05/04/18 12:15 Blood Culture - Final Blood NO GROWTH AFTER 5 DAYS Gram Stain - Final TEST NOT PERFORMED Lab Studies 10/16/17 10/16/17 10/16/17 Range/Units 12:22 11:44 06:11 WBC (4.8-10.8) K/uL RBC (4.40-5.90) Mil/uL Hgb (12.0-18.0) g/dL Hct (35.0-51.0) % MCV (80.0-94.0) fL MCH (27.0-31.0) pg MCHC (33.0-37.0) g/dL RDW (11.5-14.5) % Plt Count (130-400) K/uL MPV (7.2-11.7) fL Neut % (Auto) (50.0-75.0) % Lymph % (Auto) (20.0-40.0) % [place] % (Auto) (0.0-10.0) % Eos % (Auto) (0.0-4.0) % Baso % (Auto) (0.0-2.0) % Neut # (Auto) (1.8-7.0) K/uL Lymph # (Auto) (1.0-4.3) K/uL [place] # (Auto) (0.0-0.8) K/uL Eos # (Auto) (0.0-0.7) K/uL Baso # (Auto) (0.0-0.2) K/uL Neutrophils % (Manual) (50-75) % Band Neutrophils % (0-2) % Lymphocytes % (Manual) (20-40) % Reactive Lymphs % (0-0) % Monocytes % (Manual) (0-10) % Eosinophils % (Manual) (0-4) % Myelocytes % (0-0) % Platelet Estimate (NORMAL) Anisocytosis (manual) Puncture Site pCO2 (35-45) mm/Hg pO2 (80-100) mm/Hg HCO3 (21-28) mmol/L ABG pH (7.35-7.45) ABG Total CO2 (22-28) mmol/L ABG O2 Saturation (95-98) % ABG Base Excess (-2.0-3.0) mmol/L ABG Hemoglobin (11.7-17.4) g/dL ABG Carboxyhemoglobin (0.5-1.5) % POC ABG HHb (Measured) (0.0-5.0) % ABG Methemoglobin (0.0-3.0) % Lyle Test A-a O2 Difference mm/Hg Respiratory Index Hgb O2 Saturation (95.0-98.0) % Vent Mode FiO2 % Pressure Support CPAP Sodium 145 (132-148) mmol/L Potassium 3.9 (3.6-5.2) mmol/L Chloride 108 H (98-107) mmol/L Carbon Dioxide 29 (22-30) mmol/L Anion Gap 13 (10-20) BUN 22 H (9-20) mg/dL Creatinine 1.2 (0.8-1.5) mg/dL Est GFR ( Amer) > 60 Est GFR (Non-Af Amer) 57 POC Glucose (mg/dL) 234 H 230 H (65-110) mg/dL Random Glucose 226 H (75-110) mg/dL Calcium 7.5 L (8.6-10.4) mg/dl Phosphorus 1.8 L (2.5-4.5) mg/dL Magnesium 1.9 (1.6-2.3) mg/dL Total Bilirubin 0.6 (0.2-1.3) mg/dL AST 67 H D (17-59) U/L ALT 49 (21-72) U/L Alkaline Phosphatase 178 H (38-126) U/L Total Protein 5.3 L (6.3-8.3) g/dL Albumin 2.5 L (3.5-5.0) g/dL Globulin 2.8 (2.2-3.9) gm/dL Albumin/Globulin Ratio 0.9 L (1.0-2.1) 10/16/17 10/16/17 10/16/17 Range/Units 06:10 06:01 05:23 WBC 8.8 (4.8-10.8) K/uL RBC 2.71 L (4.40-5.90) Mil/uL Hgb 8.5 L (12.0-18.0) g/dL Hct 25.4 L (35.0-51.0) % MCV 93.9 (80.0-94.0) fL MCH 31.3 H (27.0-31.0) pg MCHC 33.3 (33.0-37.0) g/dL RDW 15.9 H (11.5-14.5) % Plt Count 239 (130-400) K/uL MPV 7.2 (7.2-11.7) fL Neut % (Auto) 80.0 H (50.0-75.0) % Lymph % (Auto) 6.1 L (20.0-40.0) % [place] % (Auto) 10.2 H (0.0-10.0) % Eos % (Auto) 3.1 (0.0-4.0) % Baso % (Auto) 0.6 (0.0-2.0) % Neut # (Auto) 7.0 (1.8-7.0) K/uL Lymph # (Auto) 0.5 L (1.0-4.3) K/uL [place] # (Auto) 0.9 H (0.0-0.8) K/uL Eos # (Auto) 0.3 (0.0-0.7) K/uL Baso # (Auto) 0.1 (0.0-0.2) K/uL Neutrophils % (Manual) 78 H (50-75) % Band Neutrophils % 6 H (0-2) % Lymphocytes % (Manual) 7 L (20-40) % Reactive Lymphs % 1 H (0-0) % Monocytes % (Manual) 6 (0-10) % Eosinophils % (Manual) 1 (0-4) % Myelocytes % 1 H (0-0) % Platelet Estimate Normal (NORMAL) Anisocytosis (manual) Slight Puncture Site Rr pCO2 40 (35-45) mm/Hg pO2 74 L (80-100) mm/Hg HCO3 31.3 H (21-28) mmol/L ABG pH 7.51 H (7.35-7.45) ABG Total CO2 33.1 H (22-28) mmol/L ABG O2 Saturation 98.0 (95-98) % ABG Base Excess 8.2 H (-2.0-3.0) mmol/L ABG Hemoglobin 8.2 L (11.7-17.4) g/dL ABG Carboxyhemoglobin 1.8 H (0.5-1.5) % POC ABG HHb (Measured) 1.9 (0.0-5.0) % ABG Methemoglobin 1.4 (0.0-3.0) % Lyle Test Pos A-a O2 Difference 161.0 mm/Hg Respiratory Index 2.2 Hgb O2 Saturation 94.9 L (95.0-98.0) % Vent Mode Cpap FiO2 40.0 % Pressure Support 12 CPAP 5 Sodium (132-148) mmol/L Potassium (3.6-5.2) mmol/L Chloride (98-107) mmol/L Carbon Dioxide (22-30) mmol/L Anion Gap (10-20) BUN (9-20) mg/dL Creatinine (0.8-1.5) mg/dL Est GFR ( Amer) Est GFR (Non-Af Amer) POC Glucose (mg/dL) 303 H (65-110) mg/dL Random Glucose (75-110) mg/dL Calcium (8.6-10.4) mg/dl Phosphorus (2.5-4.5) mg/dL Magnesium (1.6-2.3) mg/dL Total Bilirubin (0.2-1.3) mg/dL AST (17-59) U/L ALT (21-72) U/L Alkaline Phosphatase (38-126) U/L Total Protein (6.3-8.3) g/dL Albumin (3.5-5.0) g/dL Globulin (2.2-3.9) gm/dL Albumin/Globulin Ratio (1.0-2.1) 10/15/17 10/15/17 Range/Units 23:49 17:50 WBC (4.8-10.8) K/uL RBC (4.40-5.90) Mil/uL Hgb (12.0-18.0) g/dL Hct (35.0-51.0) % MCV (80.0-94.0) fL MCH (27.0-31.0) pg MCHC (33.0-37.0) g/dL RDW (11.5-14.5) % Plt Count (130-400) K/uL MPV (7.2-11.7) fL Neut % (Auto) (50.0-75.0) % Lymph % (Auto) (20.0-40.0) % [place] % (Auto) (0.0-10.0) % Eos % (Auto) (0.0-4.0) % Baso % (Auto) (0.0-2.0) % Neut # (Auto) (1.8-7.0) K/uL Lymph # (Auto) (1.0-4.3) K/uL [place] # (Auto) (0.0-0.8) K/uL Eos # (Auto) (0.0-0.7) K/uL Baso # (Auto) (0.0-0.2) K/uL Neutrophils % (Manual) (50-75) % Band Neutrophils % (0-2) % Lymphocytes % (Manual) (20-40) % Reactive Lymphs % (0-0) % Monocytes % (Manual) (0-10) % Eosinophils % (Manual) (0-4) % Myelocytes % (0-0) % Platelet Estimate (NORMAL) Anisocytosis (manual) Puncture Site pCO2 (35-45) mm/Hg pO2 (80-100) mm/Hg HCO3 (21-28) mmol/L ABG pH (7.35-7.45) ABG Total CO2 (22-28) mmol/L ABG O2 Saturation (95-98) % ABG Base Excess (-2.0-3.0) mmol/L ABG Hemoglobin (11.7-17.4) g/dL ABG Carboxyhemoglobin (0.5-1.5) % POC ABG HHb (Measured) (0.0-5.0) % ABG Methemoglobin (0.0-3.0) % Lyle Test A-a O2 Difference mm/Hg Respiratory Index Hgb O2 Saturation (95.0-98.0) % Vent Mode FiO2 % Pressure Support CPAP Sodium (132-148) mmol/L Potassium (3.6-5.2) mmol/L Chloride (98-107) mmol/L Carbon Dioxide (22-30) mmol/L Anion Gap (10-20) BUN (9-20) mg/dL Creatinine (0.8-1.5) mg/dL Est GFR ( Amer) Est GFR (Non-Af Amer) POC Glucose (mg/dL) 351 H 305 H (65-110) mg/dL Random Glucose (75-110) mg/dL Calcium (8.6-10.4) mg/dl Phosphorus (2.5-4.5) mg/dL Magnesium (1.6-2.3) mg/dL Total Bilirubin (0.2-1.3) mg/dL AST (17-59) U/L ALT (21-72) U/L Alkaline Phosphatase (38-126) U/L Total Protein (6.3-8.3) g/dL Albumin (3.5-5.0) g/dL Globulin (2.2-3.9) gm/dL Albumin/Globulin Ratio (1.0-2.1) Laboratory Results - last 24 hr 10/15/17 10/15/17 10/16/17 17:50 23:49 05:23 WBC RBC Hgb Hct MCV MCH MCHC RDW Plt Count MPV Neut % (Auto) Lymph % (Auto) [place] % (Auto) Eos % (Auto) Baso % (Auto) Neut # (Auto) Lymph # (Auto) [place] # (Auto) Eos # (Auto) Baso # (Auto) Neutrophils % (Manual) Band Neutrophils % Lymphocytes % (Manual) Reactive Lymphs % Monocytes % (Manual) Eosinophils % (Manual) Myelocytes % Platelet Estimate Anisocytosis (manual) Puncture Site Rr pCO2 40 pO2 74 L HCO3 31.3 H ABG pH 7.51 H ABG Total CO2 33.1 H ABG O2 Saturation 98.0 ABG Base Excess 8.2 H ABG Hemoglobin 8.2 L ABG Carboxyhemoglobin 1.8 H POC ABG HHb (Measured) 1.9 ABG Methemoglobin 1.4 Lyle Test Pos A-a O2 Difference 161.0 Respiratory Index 2.2 Hgb O2 Saturation 94.9 L Vent Mode Cpap FiO2 40.0 Pressure Support 12 CPAP 5 Sodium Potassium Chloride Carbon Dioxide Anion Gap BUN Creatinine Est GFR ( Amer) Est GFR (Non-Af Amer) POC Glucose (mg/dL) 305 H 351 H Random Glucose Calcium Phosphorus Magnesium Total Bilirubin AST ALT Alkaline Phosphatase Total Protein Albumin Globulin Albumin/Globulin Ratio 10/16/17 10/16/17 10/16/17 06:01 06:10 06:11 WBC 8.8 RBC 2.71 L Hgb 8.5 L Hct 25.4 L MCV 93.9 MCH 31.3 H MCHC 33.3 RDW 15.9 H Plt Count 239 MPV 7.2 Neut % (Auto) 80.0 H Lymph % (Auto) 6.1 L [place] % (Auto) 10.2 H Eos % (Auto) 3.1 Baso % (Auto) 0.6 Neut # (Auto) 7.0 Lymph # (Auto) 0.5 L [place] # (Auto) 0.9 H Eos # (Auto) 0.3 Baso # (Auto) 0.1 Neutrophils % (Manual) 78 H Band Neutrophils % 6 H Lymphocytes % (Manual) 7 L Reactive Lymphs % 1 H Monocytes % (Manual) 6 Eosinophils % (Manual) 1 Myelocytes % 1 H Platelet Estimate Normal Anisocytosis (manual) Slight Puncture Site pCO2 pO2 HCO3 ABG pH ABG Total CO2 ABG O2 Saturation ABG Base Excess ABG Hemoglobin ABG Carboxyhemoglobin POC ABG HHb (Measured) ABG Methemoglobin Lyle Test A-a O2 Difference Respiratory Index Hgb O2 Saturation Vent Mode FiO2 Pressure Support CPAP Sodium 145 Potassium 3.9 Chloride 108 H Carbon Dioxide 29 Anion Gap 13 BUN 22 H Creatinine 1.2 Est GFR ( Amer) > 60 Est GFR (Non-Af Amer) 57 POC Glucose (mg/dL) 303 H Random Glucose 226 H Calcium 7.5 L Phosphorus 1.8 L Magnesium 1.9 Total Bilirubin 0.6 AST 67 H D ALT 49 Alkaline Phosphatase 178 H Total Protein 5.3 L Albumin 2.5 L Globulin 2.8 Albumin/Globulin Ratio 0.9 L 10/16/17 10/16/17 11:44 12:22 WBC RBC Hgb Hct MCV MCH MCHC RDW Plt Count MPV Neut % (Auto) Lymph % (Auto) [place] % (Auto) Eos % (Auto) Baso % (Auto) Neut # (Auto) Lymph # (Auto) [place] # (Auto) Eos # (Auto) Baso # (Auto) Neutrophils % (Manual) Band Neutrophils % Lymphocytes % (Manual) Reactive Lymphs % Monocytes % (Manual) Eosinophils % (Manual) Myelocytes % Platelet Estimate Anisocytosis (manual) Puncture Site pCO2 pO2 HCO3 ABG pH ABG Total CO2 ABG O2 Saturation ABG Base Excess ABG Hemoglobin ABG Carboxyhemoglobin POC ABG HHb (Measured) ABG Methemoglobin Lyle Test A-a O2 Difference Respiratory Index Hgb O2 Saturation Vent Mode FiO2 Pressure Support CPAP Sodium Potassium Chloride Carbon Dioxide Anion Gap BUN Creatinine Est GFR ( Amer) Est GFR (Non-Af Amer) POC Glucose (mg/dL) 230 H 234 H Random Glucose Calcium Phosphorus Magnesium Total Bilirubin AST ALT Alkaline Phosphatase Total Protein Albumin Globulin Albumin/Globulin Ratio Critical Care Progress Note - Nutrition Nutrition: Nutrition Category Date Time Status NPO Diet [DIET] Diets 10/10/17 Dinner Active Assessment/Plan (1) Respiratory arrest Current Visit: Yes Status: Acute Comment: Tolerating CPAP Continue weaning Continue IV antibiotics Will need thoracentesis Continue present care including feeding Attending/Attestation - Attestation I have personally seen and examined this patient.: Yes I have fully participated in the care of the patient.: Yes I have reviewed all pertinent clinical information: Yes Notes (Text): 10/16/17 15:31 I have seen and examined the patient. Medical records, lab studies, and imaging were reviewed by me and a management plan was formulated on multidisciplinary rounds with resident Dr. Carlton. I agree with their documented assessment and plan. Patient is tolerating PS trials, but is not becoming alert enough to extubate. Safest path is to trach the patient. Patient awaiting placement in LTAC, long term care social worker prognosis is extremely poor. Critical Care Time 35 minutes. Multi-disciplinary rounds were performed with house staff, nursing, speech therapy, respiratory therapy, pharmacy and nutrition with integrated input from the primary team/attending and other consulting services. The documented time is cumulative and includes review of patient data/exams/labs/chart review and examination of the patient on rounds and throughout the day; time is exclusive of any procedures or teaching time. <Mumtaz Carlton - Last Filed: 10/16/17 17:50> CCU Subjective - Physician Review Subjective (Free Text): Patient seen and examined at bedside. Does not follow commands. Responds to painful stimuli. Tolerating CPAP CCU Objective - Vital Signs / Intake & Output Vital Signs (Last 4 hours): Vital Signs Pulse Resp BP Pulse Ox 10/16/17 12:01 69 22 121/48 L 96 10/16/17 12:00 69 22 97 10/16/17 11:01 74 22 132/54 L 97 10/16/17 11:00 74 23 97 10/16/17 10:02 83 20 159/72 H 98 10/16/17 10:00 84 22 100 10/16/17 09:01 73 22 129/52 L 96 10/16/17 09:00 73 23 138/54 L 96 Intake and Output (Last 8hrs): Intake & Output 10/15/17 10/16/17 10/16/17 22:59 06:59 14:59 Intake Total 650 450 350 Output Total 280 290 240 Balance 370 160 110 Weight 128 lb 4.944 oz Intake: Intake, IV Amount 250 50 50 Right PICC 250 50 50 Tube Feeding 400 400 300 Output: Urine 280 290 240 Urethral (Valladares) 280 290 240 Other: # Bowel Movements 0 0 1 - Physical Exam Head: Positive for: Atraumatic, Normocephalic Pupils: Positive for: PERRL Extroacular Muscles: Positive for: EOMI Conjunctiva: Positive for: Normal Mouth: Positive for: Dry Respiratory/Chest: Positive for: Clear to Auscultation, Decreased Breath Sounds (at bases) Cardiovascular: Positive for: Regular Rate and Rhythm Abdomen: Positive for: Normal Bowel Sounds. Negative for: Tenderness, Distention Upper Extremity: Positive for: Normal Inspection Lower Extremity: Positive for: Edema Skin: Negative for: Warm (wet) Psychiatric: Positive for: Alert. Negative for: Oriented x 3 - Medications Active Medications: Active Medications Generic Name Dose Route Start Last Admin Trade Name Robbyq PRN Reason Stop Dose Admin Enoxaparin Sodium 40 mg 10/11/17 11:15 10/16/17 09:06 Lovenox SC 40 mg DAILY JEFFERY Administration Cefepime HCl 1 gm in 50 mls @ 100 mls/hr 10/14/17 12:00 10/16/17 11:55 Maxipime Iv 1 Gm Premix IVPB 100 mls/hr Q12H JEFFERY Administration Protocol Insulin Aspart 0 unit 10/16/17 00:00 10/16/17 11:52 Novolog SC 3 unit Q6 JEFFERY Administration Protocol Insulin Human Regular 0 unit 10/16/17 16:30 Novolin R SC ACHS JEFFERY Protocol Lactic Acid 0 gm 10/15/17 18:00 10/16/17 09:07 Lac-Hydrin 12% Lotion (225 G) EXT 1 applic BID JEFFERY Administration Pantoprazole Sodium 40 mg 10/11/17 10:00 10/16/17 09:06 Protonix Inj IVP 40 mg DAILY JEFFERY Administration - Patient Studies Lab Studies: Microbiology Studies 10/10/17 11:45 Blood Culture - Final Blood NO GROWTH AFTER 5 DAYS Gram Stain - Final TEST NOT PERFORMED 10/10/17 12:15 Blood Culture - Final Blood NO GROWTH AFTER 5 DAYS Gram Stain - Final TEST NOT PERFORMED Lab Studies 10/16/17 10/16/17 10/16/17 Range/Units 12:22 11:44 06:11 WBC (4.8-10.8) K/uL RBC (4.40-5.90) Mil/uL Hgb (12.0-18.0) g/dL Hct (35.0-51.0) % MCV (80.0-94.0) fL MCH (27.0-31.0) pg MCHC (33.0-37.0) g/dL RDW (11.5-14.5) % Plt Count (130-400) K/uL MPV (7.2-11.7) fL Neut % (Auto) (50.0-75.0) % Lymph % (Auto) (20.0-40.0) % [place] % (Auto) (0.0-10.0) % Eos % (Auto) (0.0-4.0) % Baso % (Auto) (0.0-2.0) % Neut # (Auto) (1.8-7.0) K/uL Lymph # (Auto) (1.0-4.3) K/uL [place] # (Auto) (0.0-0.8) K/uL Eos # (Auto) (0.0-0.7) K/uL Baso # (Auto) (0.0-0.2) K/uL Neutrophils % (Manual) (50-75) % Band Neutrophils % (0-2) % Lymphocytes % (Manual) (20-40) % Reactive Lymphs % (0-0) % Monocytes % (Manual) (0-10) % Eosinophils % (Manual) (0-4) % Myelocytes % (0-0) % Platelet Estimate (NORMAL) Anisocytosis (manual) Puncture Site pCO2 (35-45) mm/Hg pO2 (80-100) mm/Hg HCO3 (21-28) mmol/L ABG pH (7.35-7.45) ABG Total CO2 (22-28) mmol/L ABG O2 Saturation (95-98) % ABG Base Excess (-2.0-3.0) mmol/L ABG Hemoglobin (11.7-17.4) g/dL ABG Carboxyhemoglobin (0.5-1.5) % POC ABG HHb (Measured) (0.0-5.0) % ABG Methemoglobin (0.0-3.0) % Lyle Test A-a O2 Difference mm/Hg Respiratory Index Hgb O2 Saturation (95.0-98.0) % Vent Mode FiO2 % Pressure Support CPAP Sodium 145 (132-148) mmol/L Potassium 3.9 (3.6-5.2) mmol/L Chloride 108 H (98-107) mmol/L Carbon Dioxide 29 (22-30) mmol/L Anion Gap 13 (10-20) BUN 22 H (9-20) mg/dL Creatinine 1.2 (0.8-1.5) mg/dL Est GFR ( Amer) > 60 Est GFR (Non-Af Amer) 57 POC Glucose (mg/dL) 234 H 230 H (65-110) mg/dL Random Glucose 226 H (75-110) mg/dL Calcium 7.5 L (8.6-10.4) mg/dl Phosphorus 1.8 L (2.5-4.5) mg/dL Magnesium 1.9 (1.6-2.3) mg/dL Total Bilirubin 0.6 (0.2-1.3) mg/dL AST 67 H D (17-59) U/L ALT 49 (21-72) U/L Alkaline Phosphatase 178 H (38-126) U/L Total Protein 5.3 L (6.3-8.3) g/dL Albumin 2.5 L (3.5-5.0) g/dL Globulin 2.8 (2.2-3.9) gm/dL Albumin/Globulin Ratio 0.9 L (1.0-2.1) 10/16/17 10/16/17 10/16/17 Range/Units 06:10 06:01 05:23 WBC 8.8 (4.8-10.8) K/uL RBC 2.71 L (4.40-5.90) Mil/uL Hgb 8.5 L (12.0-18.0) g/dL Hct 25.4 L (35.0-51.0) % MCV 93.9 (80.0-94.0) fL MCH 31.3 H (27.0-31.0) pg MCHC 33.3 (33.0-37.0) g/dL RDW 15.9 H (11.5-14.5) % Plt Count 239 (130-400) K/uL MPV 7.2 (7.2-11.7) fL Neut % (Auto) 80.0 H (50.0-75.0) % Lymph % (Auto) 6.1 L (20.0-40.0) % [place] % (Auto) 10.2 H (0.0-10.0) % Eos % (Auto) 3.1 (0.0-4.0) % Baso % (Auto) 0.6 (0.0-2.0) % Neut # (Auto) 7.0 (1.8-7.0) K/uL Lymph # (Auto) 0.5 L (1.0-4.3) K/uL [place] # (Auto) 0.9 H (0.0-0.8) K/uL Eos # (Auto) 0.3 (0.0-0.7) K/uL Baso # (Auto) 0.1 (0.0-0.2) K/uL Neutrophils % (Manual) 78 H (50-75) % Band Neutrophils % 6 H (0-2) % Lymphocytes % (Manual) 7 L (20-40) % Reactive Lymphs % 1 H (0-0) % Monocytes % (Manual) 6 (0-10) % Eosinophils % (Manual) 1 (0-4) % Myelocytes % 1 H (0-0) % Platelet Estimate Normal (NORMAL) Anisocytosis (manual) Slight Puncture Site Rr pCO2 40 (35-45) mm/Hg pO2 74 L (80-100) mm/Hg HCO3 31.3 H (21-28) mmol/L ABG pH 7.51 H (7.35-7.45) ABG Total CO2 33.1 H (22-28) mmol/L ABG O2 Saturation 98.0 (95-98) % ABG Base Excess 8.2 H (-2.0-3.0) mmol/L ABG Hemoglobin 8.2 L (11.7-17.4) g/dL ABG Carboxyhemoglobin 1.8 H (0.5-1.5) % POC ABG HHb (Measured) 1.9 (0.0-5.0) % ABG Methemoglobin 1.4 (0.0-3.0) % Lyle Test Pos A-a O2 Difference 161.0 mm/Hg Respiratory Index 2.2 Hgb O2 Saturation 94.9 L (95.0-98.0) % Vent Mode Cpap FiO2 40.0 % Pressure Support 12 CPAP 5 Sodium (132-148) mmol/L Potassium (3.6-5.2) mmol/L Chloride (98-107) mmol/L Carbon Dioxide (22-30) mmol/L Anion Gap (10-20) BUN (9-20) mg/dL Creatinine (0.8-1.5) mg/dL Est GFR ( Amer) Est GFR (Non-Af Amer) POC Glucose (mg/dL) 303 H (65-110) mg/dL Random Glucose (75-110) mg/dL Calcium (8.6-10.4) mg/dl Phosphorus (2.5-4.5) mg/dL Magnesium (1.6-2.3) mg/dL Total Bilirubin (0.2-1.3) mg/dL AST (17-59) U/L ALT (21-72) U/L Alkaline Phosphatase (38-126) U/L Total Protein (6.3-8.3) g/dL Albumin (3.5-5.0) g/dL Globulin (2.2-3.9) gm/dL Albumin/Globulin Ratio (1.0-2.1) 10/15/17 10/15/17 Range/Units 23:49 17:50 WBC (4.8-10.8) K/uL RBC (4.40-5.90) Mil/uL Hgb (12.0-18.0) g/dL Hct (35.0-51.0) % MCV (80.0-94.0) fL MCH (27.0-31.0) pg MCHC (33.0-37.0) g/dL RDW (11.5-14.5) % Plt Count (130-400) K/uL MPV (7.2-11.7) fL Neut % (Auto) (50.0-75.0) % Lymph % (Auto) (20.0-40.0) % [place] % (Auto) (0.0-10.0) % Eos % (Auto) (0.0-4.0) % Baso % (Auto) (0.0-2.0) % Neut # (Auto) (1.8-7.0) K/uL Lymph # (Auto) (1.0-4.3) K/uL [place] # (Auto) (0.0-0.8) K/uL Eos # (Auto) (0.0-0.7) K/uL Baso # (Auto) (0.0-0.2) K/uL Neutrophils % (Manual) (50-75) % Band Neutrophils % (0-2) % Lymphocytes % (Manual) (20-40) % Reactive Lymphs % (0-0) % Monocytes % (Manual) (0-10) % Eosinophils % (Manual) (0-4) % Myelocytes % (0-0) % Platelet Estimate (NORMAL) Anisocytosis (manual) Puncture Site pCO2 (35-45) mm/Hg pO2 (80-100) mm/Hg HCO3 (21-28) mmol/L ABG pH (7.35-7.45) ABG Total CO2 (22-28) mmol/L ABG O2 Saturation (95-98) % ABG Base Excess (-2.0-3.0) mmol/L ABG Hemoglobin (11.7-17.4) g/dL ABG Carboxyhemoglobin (0.5-1.5) % POC ABG HHb (Measured) (0.0-5.0) % ABG Methemoglobin (0.0-3.0) % Lyle Test A-a O2 Difference mm/Hg Respiratory Index Hgb O2 Saturation (95.0-98.0) % Vent Mode FiO2 % Pressure Support CPAP Sodium (132-148) mmol/L Potassium (3.6-5.2) mmol/L Chloride (98-107) mmol/L Carbon Dioxide (22-30) mmol/L Anion Gap (10-20) BUN (9-20) mg/dL Creatinine (0.8-1.5) mg/dL Est GFR ( Amer) Est GFR (Non-Af Amer) POC Glucose (mg/dL) 351 H 305 H (65-110) mg/dL Random Glucose (75-110) mg/dL Calcium (8.6-10.4) mg/dl Phosphorus (2.5-4.5) mg/dL Magnesium (1.6-2.3) mg/dL Total Bilirubin (0.2-1.3) mg/dL AST (17-59) U/L ALT (21-72) U/L Alkaline Phosphatase (38-126) U/L Total Protein (6.3-8.3) g/dL Albumin (3.5-5.0) g/dL Globulin (2.2-3.9) gm/dL Albumin/Globulin Ratio (1.0-2.1) Laboratory Results - last 24 hr 10/15/17 10/15/17 10/16/17 17:50 23:49 05:23 WBC RBC Hgb Hct MCV MCH MCHC RDW Plt Count MPV Neut % (Auto) Lymph % (Auto) [place] % (Auto) Eos % (Auto) Baso % (Auto) Neut # (Auto) Lymph # (Auto) [place] # (Auto) Eos # (Auto) Baso # (Auto) Neutrophils % (Manual) Band Neutrophils % Lymphocytes % (Manual) Reactive Lymphs % Monocytes % (Manual) Eosinophils % (Manual) Myelocytes % Platelet Estimate Anisocytosis (manual) Puncture Site Rr pCO2 40 pO2 74 L HCO3 31.3 H ABG pH 7.51 H ABG Total CO2 33.1 H ABG O2 Saturation 98.0 ABG Base Excess 8.2 H ABG Hemoglobin 8.2 L ABG Carboxyhemoglobin 1.8 H POC ABG HHb (Measured) 1.9 ABG Methemoglobin 1.4 Lyle Test Pos A-a O2 Difference 161.0 Respiratory Index 2.2 Hgb O2 Saturation 94.9 L Vent Mode Cpap FiO2 40.0 Pressure Support 12 CPAP 5 Sodium Potassium Chloride Carbon Dioxide Anion Gap BUN Creatinine Est GFR ( Amer) Est GFR (Non-Af Amer) POC Glucose (mg/dL) 305 H 351 H Random Glucose Calcium Phosphorus Magnesium Total Bilirubin AST ALT Alkaline Phosphatase Total Protein Albumin Globulin Albumin/Globulin Ratio 10/16/17 10/16/17 10/16/17 06:01 06:10 06:11 WBC 8.8 RBC 2.71 L Hgb 8.5 L Hct 25.4 L MCV 93.9 MCH 31.3 H MCHC 33.3 RDW 15.9 H Plt Count 239 MPV 7.2 Neut % (Auto) 80.0 H Lymph % (Auto) 6.1 L [place] % (Auto) 10.2 H Eos % (Auto) 3.1 Baso % (Auto) 0.6 Neut # (Auto) 7.0 Lymph # (Auto) 0.5 L [place] # (Auto) 0.9 H Eos # (Auto) 0.3 Baso # (Auto) 0.1 Neutrophils % (Manual) 78 H Band Neutrophils % 6 H Lymphocytes % (Manual) 7 L Reactive Lymphs % 1 H Monocytes % (Manual) 6 Eosinophils % (Manual) 1 Myelocytes % 1 H Platelet Estimate Normal Anisocytosis (manual) Slight Puncture Site pCO2 pO2 HCO3 ABG pH ABG Total CO2 ABG O2 Saturation ABG Base Excess ABG Hemoglobin ABG Carboxyhemoglobin POC ABG HHb (Measured) ABG Methemoglobin Lyle Test A-a O2 Difference Respiratory Index Hgb O2 Saturation Vent Mode FiO2 Pressure Support CPAP Sodium 145 Potassium 3.9 Chloride 108 H Carbon Dioxide 29 Anion Gap 13 BUN 22 H Creatinine 1.2 Est GFR ( Amer) > 60 Est GFR (Non-Af Amer) 57 POC Glucose (mg/dL) 303 H Random Glucose 226 H Calcium 7.5 L Phosphorus 1.8 L Magnesium 1.9 Total Bilirubin 0.6 AST 67 H D ALT 49 Alkaline Phosphatase 178 H Total Protein 5.3 L Albumin 2.5 L Globulin 2.8 Albumin/Globulin Ratio 0.9 L 10/16/17 10/16/17 11:44 12:22 WBC RBC Hgb Hct MCV MCH MCHC RDW Plt Count MPV Neut % (Auto) Lymph % (Auto) [place] % (Auto) Eos % (Auto) Baso % (Auto) Neut # (Auto) Lymph # (Auto) [place] # (Auto) Eos # (Auto) Baso # (Auto) Neutrophils % (Manual) Band Neutrophils % Lymphocytes % (Manual) Reactive Lymphs % Monocytes % (Manual) Eosinophils % (Manual) Myelocytes % Platelet Estimate Anisocytosis (manual) Puncture Site pCO2 pO2 HCO3 ABG pH ABG Total CO2 ABG O2 Saturation ABG Base Excess ABG Hemoglobin ABG Carboxyhemoglobin POC ABG HHb (Measured) ABG Methemoglobin Lyle Test A-a O2 Difference Respiratory Index Hgb O2 Saturation Vent Mode FiO2 Pressure Support CPAP Sodium Potassium Chloride Carbon Dioxide Anion Gap BUN Creatinine Est GFR ( Amer) Est GFR (Non-Af Amer) POC Glucose (mg/dL) 230 H 234 H Random Glucose Calcium Phosphorus Magnesium Total Bilirubin AST ALT Alkaline Phosphatase Total Protein Albumin Globulin Albumin/Globulin Ratio Fingerstick Blood Sugar Results: 230 Review of Systems - Review of Systems Systems not reviewed;Unavailable: Dementia (CPAP) Critical Care Progress Note - Nutrition Nutrition: Nutrition Category Date Time Status NPO Diet [DIET] Diets 10/10/17 Dinner Active Assessment/Plan - Assessment and Plan (Free Text) Assessment: 87 year old male with PMHx CAD, pacemaker, DM2, CHF, HLD, dementia who [facility] Plan: Neuro: A: Dementia, GCS: 7T CT Head (Adm): 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 No acute hemmorahge. Cardio A: CAD, CHF Hold Home Antihypertensives Pulm A: Aspiration PNA AB.67/21/179/28 Switched to CPAP today and is tolerating. CXR (10/13/17): Bilateral effusions and bibasilar atelectasis and/or infiltrates Chest CT (10/14/17): Bilateral moderate pleural effusion with lower lobe subsegmental/segmental atelectasis. Multifocal right lung small airways disease. Nonspecific. Possible infectious etiology. Endotracheal tube. Percutaneous gastrostomy tube. Permanent pacemaker. Cardiomegaly. GI A: HLD Consider Restarting Home Statins : I/O: 1500/840 Nephro/electrolytes Neutra-Phos 1 pkt PO BID JEFFERY ID Afebrile, No Leukocytosis Blood, Urine, and Nares Cultures NEGATIVE Cont. Emperic Antibiotic Coverage Vancomycin 1gm Daily Cefepime 1gm Q12H Azithromycin 500mg Daily Consider ProCal Endo A: DM II Novolog Integumentary A: Candidiasis in perianal and Abd. Folds Nystatin Powder. MSK PT/OT Prophylaxis Lovenox SC Daily Protonix IV Daily Tube Feeding (Vital 1.2) Dispo: Case management referral for LTAC. Will F/U with Case management and Palliative Care. Patient seen and discussed with ICU Attending Mumtaz Carlton, PGY-1
--- NOTE | 2017-10-16 15:04 | CP.PCM.PN ---
Subjective - Date & Time of Evaluation Date of Evaluation: 10/16/17 Time of Evaluation: 12:00 - Subjective Subjective: clinically same Objective - Vital Signs/Intake and Output Vital Signs (last 24 hours): Temp Pulse Resp BP Pulse Ox 98.5 F 70 23 118/48 L 96 10/16/17 12:00 10/16/17 14:01 10/16/17 14:01 10/16/17 14:01 10/16/17 14:01 Intake and Output: 10/16/17 10/16/17 06:59 18:59 Intake Total 600 450 Output Total 410 325 Balance 190 125 - Medications Medications: Current Medications Enoxaparin Sodium (Lovenox) 40 mg SC DAILY [facility] Last Admin: 10/16/17 09:06 Dose: 40 mg Cefepime HCl (Maxipime Iv 1 Gm Premix) 1 gm in 50 mls @ 100 mls/hr IVPB Q12H JEFFERY PRN Reason: Protocol Last Admin: 10/16/17 11:55 Dose: 100 mls/hr Insulin Aspart (Novolog) 0 unit SC Q6 JEFFERY PRN Reason: Protocol Last Admin: 10/16/17 11:52 Dose: 3 unit Lactic Acid (Lac-Hydrin 12% Lotion (225 G)) 0 gm EXT BID JEFFERY Last Admin: 10/16/17 09:07 Dose: 1 applic Pantoprazole Sodium (Protonix Inj) 40 mg IVP DAILY [facility] Last Admin: 10/16/17 09:06 Dose: 40 mg - Labs Labs: 10/16/17 06:10 10/16/17 06:11 PT 12.6 SECONDS (9.7-12.2) H 10/10/17 12:02 INR 1.1 10/10/17 12:02 APTT 18 SECONDS (21-34) L 10/10/17 12:02 - Constitutional Appears: Well - Head Exam Head Exam: ATRAUMATIC, NORMAL INSPECTION, NORMOCEPHALIC - Eye Exam Eye Exam: EOMI, Normal appearance, PERRL Pupil Exam: NORMAL ACCOMODATION, PERRL - ENT Exam ENT Exam: Mucous Membranes Moist, Normal Exam - Neck Exam Neck Exam: Full ROM, Normal Inspection. absent: Lymphadenopathy - Respiratory Exam Respiratory Exam: Decreased Breath Sounds - Cardiovascular Exam Cardiovascular Exam: REGULAR RHYTHM, +S1, +S2 - GI/Abdominal Exam GI & Abdominal Exam: Soft, Diminished Bowel Sounds - Rectal Exam Rectal Exam: Deferred
[2017-10-16] MEDS ORDERED: (Novolin R) Insulin Human Regular 100 units/ml vial SC SCH (16:30)
--- NOTE | 2017-10-16 17:47 | CP.PCM.PN ---
Subjective - Date & Time of Evaluation Date of Evaluation: 10/16/17 Time of Evaluation: 10:00 - Subjective Subjective: WEANING IN PROGRESS NO FEVER Objective - Vital Signs/Intake and Output Vital Signs (last 24 hours): Temp Pulse Resp BP Pulse Ox 99.8 F H 76 24 133/51 L 95 10/16/17 16:00 10/16/17 17:01 10/16/17 17:01 10/16/17 17:01 10/16/17 17:01 Intake and Output: 10/16/17 10/16/17 06:59 18:59 Intake Total 600 600 Output Total 410 475 Balance 190 125 - Medications Medications: Current Medications Enoxaparin Sodium (Lovenox) 40 mg SC DAILY [facility] Last Admin: 10/16/17 09:06 Dose: 40 mg Cefepime HCl (Maxipime Iv 1 Gm Premix) 1 gm in 50 mls @ 100 mls/hr IVPB Q12H JEFFERY PRN Reason: Protocol Last Admin: 10/16/17 11:55 Dose: 100 mls/hr Insulin Aspart (Novolog) 0 unit SC Q6 JEFFERY PRN Reason: Protocol Last Admin: 10/16/17 17:16 Dose: 6 unit Lactic Acid (Lac-Hydrin 12% Lotion (225 G)) 0 gm EXT BID JEFFERY Last Admin: 10/16/17 17:15 Dose: 1 applic Pantoprazole Sodium (Protonix Inj) 40 mg IVP DAILY [facility] Last Admin: 10/16/17 09:06 Dose: 40 mg - Labs Labs: 10/16/17 06:10 10/16/17 06:11 PT 12.6 SECONDS (9.7-12.2) H 10/10/17 12:02 INR 1.1 10/10/17 12:02 APTT 18 SECONDS (21-34) L 10/10/17 12:02 - Constitutional Appears: Non-toxic, Confused, Cachectic, Chronically Ill - Head Exam Head Exam: NORMOCEPHALIC - Eye Exam Eye Exam: PERRL - ENT Exam ENT Exam: Mucous Membranes Dry - Neck Exam Neck Exam: absent: Lymphadenopathy, Thyromegaly - Respiratory Exam Respiratory Exam: Decreased Breath Sounds, Rhonchi - Cardiovascular Exam Cardiovascular Exam: REGULAR RHYTHM, +S1, +S2 - GI/Abdominal Exam GI & Abdominal Exam: Distended, Soft. absent: Tenderness - Rectal Exam Rectal Exam: Deferred - Exam Exam: NORMAL INSPECTION - Extremities Exam Extremities Exam: absent: Pedal Edema - Back Exam Back Exam: absent: CVA tenderness (L), CVA tenderness (R), paraspinal tenderness - Neurological Exam Neurological Exam: Altered Assessment and Plan (1) Respiratory arrest Status: Acute (2) Aspiration pneumonia Status: Acute (3) Bronchitis Status: Acute (4) CAD (coronary artery disease) Status: Acute (5) Diabetes Status: Acute
[2017-10-17] MEDS: (Novolog) Insulin Aspart, Recombinant 100 u/ml 10 ml vial SC SCH ×4 (00:07→17:10)
[2017-10-17] MEDS: Cefepime IV 1 gm in Dextrose 1 GM/50 ML BAG IVPB SCH ×2 (00:09→12:33)
[2017-10-17 05:57] LABS: ABG ALLEN TEST POS; ARTERIAL BLOOD GAS HCO3 31.3 mmol/L (21-28); ARTERIAL BLOOD GAS HEMOGLOBIN 9.3 g/dL (11.7-17.4); ARTERIAL BLOOD GAS O2 SAT 99.2 % (95-98); ARTERIAL BLOOD GAS PCO2 40 mm/Hg (35-45); ARTERIAL BLOOD GAS PH 7.51 (7.35-7.45); ARTERIAL BLOOD GAS PO2 106 mm/Hg (80-100); ARTERIAL BLOOD GAS TCO2 33.1 mmol/L (22-28)
[2017-10-17 06:23] LABS: BASO # 0.1 K/uL (0.0-0.2); BASO % 1.3 % (0.0-2.0); EOS # 0.3 K/uL (0.0-0.7); EOS % 2.8 % (0.0-4.0); HEMOGLOBIN 8.9 g/dL (12.0-18.0); LYMPH # 0.7 K/uL (1.0-4.3); LYMPH % 7.1 % (20.0-40.0); MEAN CELL VOLUME 93.3 fL (80.0-94.0); MEAN CORPUSCULAR HEMOGLOBIN 31.9 pg (27.0-31.0); MEAN CORPUSCULAR HGB CONC 34.2 g/dL (33.0-37.0); MEAN PLATELET VOLUME 7.1 fL (7.2-11.7); MONO # 0.8 K/uL (0.0-0.8); MONO % 8.6 % (0.0-10.0); NEUT # 7.6 K/uL (1.8-7.0); NEUT % 80.2 % (50.0-75.0); NRBC % 0.1 % (0.0-2.0); PLATELET COUNT 277 K/uL (130-400); RBC 2.79 Mil/uL (4.40-5.90); RED CELL DISTRIBUTION WIDTH 16.3 % (11.5-14.5); WHITE BLOOD COUNT 9.4 K/uL (4.8-10.8)
[2017-10-17 06:42] LABS: ALB/GLOB RATIO 0.8 (1.0-2.1); ALBUMIN 2.5 g/dL (3.5-5.0); ALT/SGPT 56 U/L (21-72); AST/SGOT 60 U/L (17-59); BLOOD UREA NITROGEN 25 mg/dL (9-20); CALCIUM 7.5 mg/dl (8.6-10.4); GFR AFRICAN-AMERICAN > 60; GFR NON-AFRICAN AMERICAN 57
[2017-10-17 08:11] LABS: BANDS 1 % (0-2); EOSINOPHIL 2 % (0-4); HYPOCHROMIC SLIGHT; LYMPHOCYTE 8 % (20-40); MONOCYTE 8 % (0-10); MYELOCYTE 1 % (0-0); NEUTROPHIL 80 % (50-75); PLATELET ESTIMATE NORMAL (NORMAL); TOTAL CELLS COUNTED 100
[2017-10-17 08:12] LABS: ANISOCYTOSIS SLIGHT; OVALOCYTES SLIGHT; POIKILOCYTOSIS SLIGHT
[2017-10-17] MEDS: Ammonium Lactate 12% Lotion (225 g) EXT SCH ×2 (09:45→17:11)
[2017-10-17] MEDS: Enoxaparin 40 mg Syringe SC SCH (09:45)
--- NOTE | 2017-10-17 10:41 | RAD ---
Chest x-ray single frontal view History: Intubated. Comparison: 10/16/2017 Findings: Lines and tubes in stable position. Moderate to severe venous congestion with prominent confluent airspace opacities within the mid to lower lung zones with moderate bilateral pleural effusions. Heart size within normal limits. Left-sided pacemaker. Impression: Lines and tubes in stable position. Moderate to severe venous congestion with prominent confluent airspace opacities within the mid to lower lung zones with moderate bilateral pleural effusions. Heart size within normal limits. Left-sided pacemaker.
[2017-10-17] MEDS ORDERED: Potassium Phosphate 15 MMOLE in Sodium Chloride 0.9% 250 ML IVPB ONE (12:00)
--- NOTE | 2017-10-17 15:45 | CP.PCM.PN ---
Subjective - Date & Time of Evaluation Date of Evaluation: 10/17/17 Time of Evaluation: 13:40 - Subjective Subjective: clinically same Objective - Vital Signs/Intake and Output Vital Signs (last 24 hours): Temp Pulse Resp BP Pulse Ox 99.3 F 78 24 127/52 L 97 10/17/17 13:00 10/17/17 15:01 10/17/17 15:01 10/17/17 15:01 10/17/17 15:01 Intake and Output: 10/17/17 10/17/17 06:59 18:59 Intake Total 650 500 Output Total 530 280 Balance 120 220 - Medications Medications: Current Medications Enoxaparin Sodium (Lovenox) 40 mg SC DAILY [facility] Last Admin: 10/17/17 09:45 Dose: 40 mg Cefepime HCl (Maxipime Iv 1 Gm Premix) 1 gm in 50 mls @ 100 mls/hr IVPB Q12H JEFFERY PRN Reason: Protocol Last Admin: 10/17/17 12:33 Dose: 100 mls/hr Potassium Phosphate 15 mmole/ (Sodium Chloride) 255 mls @ 42.5 mls/hr IVPB ONCE ONE Stop: 10/17/17 17:59 Last Admin: 10/17/17 12:33 Dose: 42.5 mls/hr Insulin Aspart (Novolog) 0 unit SC Q6 JEFFERY PRN Reason: Protocol Last Admin: 10/17/17 12:45 Dose: 6 unit Insulin Glargine (Lantus) 10 unit SC HS [facility] Stop: 10/18/17 22:01 Lactic Acid (Lac-Hydrin 12% Lotion (225 G)) 0 gm EXT BID [facility] Last Admin: 10/17/17 09:45 Dose: 1 applic Pantoprazole Sodium (Protonix Inj) 40 mg IVP DAILY [facility] Last Admin: 10/17/17 09:45 Dose: 40 mg - Labs Labs: 10/17/17 06:16 10/17/17 06:17 PT 12.6 SECONDS (9.7-12.2) H 10/10/17 12:02 INR 1.1 10/10/17 12:02 APTT 18 SECONDS (21-34) L 10/10/17 12:02 - Constitutional Appears: Well - Head Exam Head Exam: ATRAUMATIC, NORMAL INSPECTION, NORMOCEPHALIC - Eye Exam Eye Exam: EOMI, Normal appearance, PERRL Pupil Exam: NORMAL ACCOMODATION, PERRL - ENT Exam ENT Exam: Mucous Membranes Moist, Normal Exam - Neck Exam Neck Exam: Full ROM, Normal Inspection. absent: Lymphadenopathy - Respiratory Exam Respiratory Exam: Decreased Breath Sounds - Cardiovascular Exam Cardiovascular Exam: REGULAR RHYTHM, +S1, +S2 - GI/Abdominal Exam GI & Abdominal Exam: Soft, Diminished Bowel Sounds - Rectal Exam Rectal Exam: Deferred
[2017-10-17 16:04] VITALS: O2SAT 100
--- NOTE | 2017-10-17 17:55 | CP.PCM.PN ---
Subjective - Date & Time of Evaluation Date of Evaluation: 10/17/17 Time of Evaluation: 07:00 - Subjective Subjective: EVENTS NOTED IV RX IN PROGRESSS WEANING TOLERATED Objective - Vital Signs/Intake and Output Vital Signs (last 24 hours): Temp Pulse Resp BP Pulse Ox 99.3 F 89 25 H 150/70 100 10/17/17 13:00 10/17/17 16:01 10/17/17 16:01 10/17/17 16:01 10/17/17 16:01 Intake and Output: 10/17/17 10/17/17 06:59 18:59 Intake Total 650 850 Output Total 530 280 Balance 120 570 - Medications Medications: Current Medications Enoxaparin Sodium (Lovenox) 40 mg SC DAILY [facility] Last Admin: 10/17/17 09:45 Dose: 40 mg Cefepime HCl (Maxipime Iv 1 Gm Premix) 1 gm in 50 mls @ 100 mls/hr IVPB Q12H JEFFERY PRN Reason: Protocol Last Admin: 10/17/17 12:33 Dose: 100 mls/hr Potassium Phosphate 15 mmole/ (Sodium Chloride) 255 mls @ 42.5 mls/hr IVPB ONCE ONE Stop: 10/17/17 17:59 Last Admin: 10/17/17 12:33 Dose: 42.5 mls/hr Insulin Aspart (Novolog) 0 unit SC Q6 JEFFERY PRN Reason: Protocol Last Admin: 10/17/17 17:10 Dose: 8 unit Insulin Glargine (Lantus) 10 unit SC HS [facility] Stop: 10/18/17 22:01 Lactic Acid (Lac-Hydrin 12% Lotion (225 G)) 0 gm EXT BID [facility] Last Admin: 10/17/17 17:11 Dose: 1 applic Pantoprazole Sodium (Protonix Inj) 40 mg IVP DAILY [facility] Last Admin: 10/17/17 09:45 Dose: 40 mg - Labs Labs: 10/17/17 06:16 10/17/17 06:17 PT 12.6 SECONDS (9.7-12.2) H 10/10/17 12:02 INR 1.1 10/10/17 12:02 APTT 18 SECONDS (21-34) L 10/10/17 12:02 - Constitutional Appears: Non-toxic, Cachectic, Chronically Ill - Head Exam Head Exam: NORMOCEPHALIC - Eye Exam Eye Exam: PERRL - ENT Exam ENT Exam: Mucous Membranes Dry - Neck Exam Neck Exam: absent: Lymphadenopathy - Respiratory Exam Respiratory Exam: Decreased Breath Sounds - Cardiovascular Exam Cardiovascular Exam: REGULAR RHYTHM - GI/Abdominal Exam GI & Abdominal Exam: Distended, Soft Assessment and Plan (1) Respiratory arrest Status: Acute (2) Aspiration pneumonia Status: Acute (3) Bronchitis Status: Acute (4) CAD (coronary artery disease) Status: Acute (5) Diabetes Status: Acute
[2017-10-17 19:00] VITALS: BP 158/63; PULSE 80; RESP 21; TEMP 98.8
[2017-10-17] MEDS ORDERED: (Lantus) Insulin Glargine, Recombinant SC SCH (22:00)
== END 2017-10-17 18:09 | DRG 207 ==
LOC: C.ER 11:12 → C.9E 12:08 → C.9I 13:15
PROVIDERS: ADMIT Internal Medicine Nephrology; ATTEND Internal Medicine Nephrology
PROC: 5A1955Z Respiratory Ventilation, Greater than 96 Consecutive Hours (ICD-10-PCS; principal; 2017-10-10)
PROC: 30233N1 Transfusion of Nonautologous Red Blood Cells into Peripheral Vein, Percutaneous Approach (ICD-10-PCS; 2017-10-11)
DX: J96.00 Acute respiratory failure, unspecified whether with hypoxia or hypercapnia (principal); J69.0 Pneumonitis due to inhalation of food and vomit; R40.20 Unspecified coma; A41.9 Sepsis, unspecified organism; G91.9 Hydrocephalus, unspecified; R64 Cachexia; J98.11 Atelectasis; J40 Bronchitis, not specified as acute or chronic; I25.10 Atherosclerotic heart disease of native coronary artery without angina pectoris; E11.9 Type 2 diabetes mellitus without complications; F32.9 Major depressive disorder, single episode, unspecified; K59.00 Constipation, unspecified; Z93.1 Gastrostomy status; I50.9 Heart failure, unspecified; I11.0 Hypertensive heart disease with heart failure; F03.90 Unspecified dementia, unspecified severity, without behavioral disturbance, psychotic disturbance, mood disturbance, and anxiety; Z95.0 Presence of cardiac pacemaker; Z87.891 Personal history of nicotine dependence; E78.00 Pure hypercholesterolemia, unspecified; I87.8 Other specified disorders of veins; S31.000A Unspecified open wound of lower back and pelvis without penetration into retroperitoneum, initial encounter; Z86.73 Personal history of transient ischemic attack (TIA), and cerebral infarction without residual deficits; Z74.01 Bed confinement status; R53.1 Weakness; L89.90 Pressure ulcer of unspecified site, unspecified stage; N50.89 Other specified disorders of the male genital organs; D63.8 Anemia in other chronic diseases classified elsewhere; R34 Anuria and oliguria; B37.9 Candidiasis, unspecified